=== PATIENT | male | born 1930 ===

== ENCOUNTER 2017-12-15 08:03 | Day surgery (SDC) | payer MEDICARE, OTHER ==
[2017-11-05 18:52] VITALS: BMI 15.7
[2017-12-15] MEDS ORDERED: Lactated Ringer's 500 ML IV ONE (09:30)
[2017-12-15] MEDS ORDERED: Propofol 10 mg/ml Inj (20 ML) ONE (11:04)
[2017-12-15 11:17] VITALS: TEMP 98; O2SAT 100
[2017-12-15 11:39] VITALS: BP 109/68; PULSE 80; RESP 21
== END 2017-12-15 12:03 | disposition home or self-care (01) ==
LOC: H.ENDO 08:03
PROVIDERS: ATTEND Internal Medicine Gastroenterology
DX: K29.50 Unspecified chronic gastritis without bleeding (principal); K44.9 Diaphragmatic hernia without obstruction or gangrene; R10.13 Epigastric pain
CPT/HCPCS: 43239; 88305; J2001; J2704; J7120

== ENCOUNTER 2018-06-04 18:01 | Inpatient (IN) | payer MEDICARE, OTHER ==
[2018-06-04 18:01] VITALS: BMI 15.7
[2018-06-04] MEDS ORDERED: Sodium Chloride 0.9% 1,000 ML IV STA (18:59)
[2018-06-04 19:06] LABS: ALB/GLOB RATIO 0.7 (1.0-2.1); ALBUMIN 2.3 g/dL (3.5-5.0); ALT/SGPT 34 U/L (21-72); AST/SGOT 25 U/L (17-59); BLOOD UREA NITROGEN 21 mg/dl (9-20); CALCIUM 7.6 mg/dL (8.4-10.2); GFR NON-AFRICAN AMERICAN > 60
[2018-06-04 20:01] LABS: ABG ALLEN TEST YES; ARTERIAL BLOOD GAS O2 SAT 96.7 % (95-98); ARTERIAL BLOOD GAS PCO2 32 mm/Hg (35-45); ARTERIAL BLOOD GAS PH 7.54 (7.35-7.45); ARTERIAL BLOOD GAS PO2 100 mm/Hg (80-100); ARTERIAL BLOOD GAS TCO2 28.4 mmol/L (22-28)
--- NOTE | 2018-06-04 20:12 | ED PDOC ---
HPI: General Adult Time Seen by Provider: 06/04/18 18:20 Chief Complaint (Nursing): Weakness/Neurological Deficit Chief Complaint (Provider): Weakness/Neurological Deficit History Per: Patient History/Exam Limitations: no limitations Onset/Duration Of Symptoms: Days (x30) Additional Complaint(s): 87 years old male with history of hypertension and pe dvt (ivc filter) stangulated hernia presents to ER for evaluation of whole body pain and generalized weakness for one month. Patient was seen recently by his PMD. He is drinking liquidsl but not as much as usual. Patient denies any fever, vomiting or diarrhea. is on bedside. PMD: Ayse Valdivia Past Medical History Reviewed: Historical Data, Nursing Documentation, Vital Signs Vital Signs: Last Vital Signs Temp 97.9 F 06/04/18 18:03 Pulse 95 H 06/04/18 18:03 Resp 16 06/04/18 18:03 BP 93/61 L 06/04/18 18:03 Pulse Ox 98 06/04/18 18:03 - Medical History PMH: CAD, Cardia Arrhythmia, HTN, Hypercholesterolemia Denies: Chronic Kidney Disease - Surgical History Surgical History: CABG, Coronary Stent, Hernia Repair - Family History Family History: States: Unknown Family Hx - Social History Current smoker - smoking cessation education provided: No Alcohol: None Drugs: Denies - Immunization History Hx Tetanus Toxoid Vaccination: No Hx Influenza Vaccination: Yes Hx Pneumococcal Vaccination: No - Home Medications Home Medications: Ambulatory Orders Medication Instructions Recorded RX: Simvastatin 20 mg PO HS 09/09/16 Clopidogrel [Plavix] 75 mg PO DAILY 06/04/18 Ergocalciferol (Vitamin D2) 50,000 unit PO FR 06/04/18 [Vitamin D2] Finasteride [Proscar] 5 mg PO DAILY 06/04/18 Furosemide [Lasix] 20 mg PO Q48H 06/04/18 Lubiprostone [Amitiza] 24 mcg PO BID 06/04/18 Metoprolol Succinate XL [Toprol XL] 100 mg PO DAILY 06/04/18 Mv,Min10/Folic Acid/D3/Ala/Lut 1 tab PO DAILY 06/04/18 [Strovite One Caplet] Tamsulosin [Flomax] 0.4 mg PO DAILY 06/04/18 - Allergies Allergies/Adverse Reactions: Allergies Allergy/AdvReac Type Severity Reaction Status Date / Time No Known Allergies Allergy Verified 06/04/18 18:03 Review of Systems ROS Statement: Except As Marked, All Systems Reviewed And Found Negative Constitutional: Negative for: Fever Gastrointestinal: Negative for: Vomiting, Diarrhea Neurological: Positive for: Weakness Physical Exam - Reviewed Nursing Documentation Reviewed: Yes Vital Signs Reviewed: Yes - Physical Exam Appears: Positive for: Non-toxic, No Acute Distress Head Exam: Positive for: ATRAUMATIC, NORMOCEPHALIC Skin: Positive for: Normal Color, Warm, Dry Eye Exam: Positive for: Normal appearance, EOMI, PERRL ENT: Positive for: Normal ENT Inspection Neck: Positive for: Normal, Painless ROM, Supple Cardiovascular/Chest: Positive for: Regular Rate, Rhythm. Negative for: Murmur Respiratory: Positive for: Normal Breath Sounds. Negative for: Respiratory Distress Gastrointestinal/Abdominal: Positive for: Normal Exam, Soft. Negative for: Tenderness Back: Positive for: Normal Inspection. Negative for: L CVA Tenderness, R CVA Tenderness Extremity: Positive for: Normal ROM. Negative for: Pedal Edema, Deformity Neurologic/Psych: Positive for: Alert, Oriented (x3), Other (temporal wasting) - Laboratory Results Result Diagrams: 06/12/18 16:51 06/16/18 11:29 - ECG O2 Sat by Pulse Oximetry: 98 (RA) Pulse Ox Interpretation: Normal Medical Decision Making Medical Decision Making: Time: 1841 Initial Plan: genearlized weakness, rule out infection, uti or pneumonia --ABG Shock Panel --VBG Shock Panel --CMP --CBC --Chest x-ray --NaCl 1,000 ml IV --Blood culture --Urine culture --Urinalysis 22:[address] Chest Abd Pelvis Lower thorax There are large bilateral pleural effusions. Right basilar consolidations are noted consistent with atelectasis. Liver Unremarkable. No gross lesion or ductal dilatation. Gallbladder and bile ducts Unremarkable. Pancreas Unremarkable. No gross lesion or ductal dilatation. Spleen Unremarkable. Adrenals Unremarkable. No mass. Kidneys and ureters No hydronephrosis. No solid mass. There are bilateral cortical cysts present, the largest measures 2.5 cm and is located in the mid pole of the left kidney. IVC filter is in place. Vasculature Unremarkable. No aortic aneurysm. Bowel No obstruction. No gross mural thickening. There is circumferential wall thickening involving all small bowel segments consistent with enteritis. Appendix Normal appendix. Peritoneum Unremarkable. No free fluid. No free air. Lymph nodes Unremarkable. No enlarged lymph nodes. Bladder Unremarkable. Reproductive Unremarkable. Bones No acute fracture. Other Findings Diffuse abdominal and pelvic ascites is present. Impression Large bilateral pleural effusions. Right basilar atelectasis. Bilateral cortical cysts, the largest measures 2.5 cm and is located in the mid pole of the left kidney. IVC filter is in place. Enteritis. Diffuse abdominal and pelvic ascites. 23:53 Patient and family aware of results of the CT. pt will be admitted to Dr. Noel. DX pleural effusions, anemia, ascites, weight loss --------- Scribe Attestation: Documented by Debi Brooke, acting as a scribe for Adán Cummins MD. Provider Scribe Attestation: All medical record entries made by the Scribe were at my direction and personally dictated by me. I have reviewed the chart and agree that the record accurately reflects my personal performance of the history, physical exam, medical decision making, and the department course for this patient. I have also personally directed, reviewed, and agree with the discharge instructions and disposition. Disposition - Clinical Impression Clinical Impression: Ascites, Weight loss, Anemia - Patient ED Disposition Is Patient to be Admitted: Yes - Disposition Disposition Time: 23:40 Condition: FAIR
[2018-06-04 20:19] LABS: BASO % 0.1 % (0.0-2.0); EOS % 0.1 % (0.0-4.0); HEMOGLOBIN 10.9 g/dL (12.0-18.0); LYMPH # 1.4 K/uL (1.0-4.3); MEAN CELL VOLUME 82.5 fl (80.0-94.0); MEAN CORPUSCULAR HGB CONC 31.5 g/dL (33.0-37.0); MEAN PLATELET VOLUME 8.6 fl (7.2-11.7); MONO # 0.5 K/uL (0.0-0.8); MONO % 6.8 % (0.0-10.0); NEUT # 5.4 K/uL (1.8-7.0); NRBC % 0.1 % (0.0-0.0); RBC 4.19 Mil/uL (4.40-5.90); RED CELL DISTRIBUTION WIDTH 18.9 % (11.5-14.5); WHITE BLOOD COUNT 7.2 K/uL (4.8-10.8)
[2018-06-04] MEDS ORDERED: Iohexol 240 (50 ml) PO STA (21:04)
[2018-06-04] MEDS ORDERED: Iohexol 300 100 ML IJ ONE (21:12)
[2018-06-04] MEDS ORDERED: Sodium Chloride 0.9% 50 ML IV ONE (21:12)
[2018-06-04] MEDS: Sodium Chloride 0.9% 1,000 ML IV STA (23:46)
[2018-06-05] MEDS: Sodium Chloride 0.9% 1,000 ML IV STA (02:12)
[2018-06-05 02:29] LABS: URINE BACTERIA RARE (<OCC); URINE BILIRUBIN NEGATIVE (NEGATIVE); URINE BLOOD NEGATIVE (NEGATIVE); URINE CLARITY CLOUDY (Clear); URINE COLOR AMBER (YELLOW); URINE GLUCOSE (UA) NEG (NEGATIVE); URINE HYALINE CAST 0-2 /hpf (0-2); URINE LEUKOCYTE ESTERASE MOD Leu/uL (Negative); URINE PROTEIN NEGATIVE (NEGATIVE)
[2018-06-05] MEDS: Dextrose 5%/0.45% NS 1,000 ML IV SCH ×2 (05:44→20:59)
[2018-06-05] MEDS ORDERED: Pneumococcal 23-Valent Vaccine IM ONE (06:00)
[2018-06-05 06:23] LABS: HEMOGLOBIN 11.1 g/dL (12.0-18.0); MEAN CELL VOLUME 82.2 fl (80.0-94.0); MEAN CORPUSCULAR HEMOGLOBIN 26.6 pg (27.0-31.0); MEAN CORPUSCULAR HGB CONC 32.4 g/dL (33.0-37.0); RBC 4.19 Mil/uL (4.40-5.90); RED CELL DISTRIBUTION WIDTH 18.7 % (11.5-14.5); WHITE BLOOD COUNT 6.6 K/uL (4.8-10.8)
[2018-06-05 06:25] LABS: INR 1.7; PROTHROMBIN TIME 18.8 Seconds (9.8-13.1)
[2018-06-05 06:40] LABS: B-TYPE NATRIURETIC PEPTIDE 1250 pg/ml (0-900)
[2018-06-05 06:44] LABS: ALB/GLOB RATIO 0.7 (1.0-2.1); ALBUMIN 2.2 g/dL (3.5-5.0); ALT/SGPT 29 U/L (21-72); AST/SGOT 26 U/L (17-59); BLOOD UREA NITROGEN 21 mg/dl (9-20); CALCIUM 7.2 mg/dL (8.4-10.2); GFR NON-AFRICAN AMERICAN > 60; HDL CHOLESTEROL 34 MG/DL (30-70); LDL CHOLESTEROL < 30 mg/dL (0-129)
[2018-06-05 06:48] LABS: T4 5.01 ug/dl (5.5-11.0)
--- NOTE | 2018-06-05 08:58 | RAD ---
Date of service: 06/04/2018 HISTORY: body pain COMPARISON: Chest radiographs 09/10/2009. FINDINGS: LUNGS: Medial basilar airspace disease is identified with none on the right. PLEURA: Trace bilateral pleural effusions are question. No pneumothorax bilaterally. CARDIOVASCULAR: Calcific atherosclerotic changes are seen related to the thoracic aorta. Normal cardiac size. No pulmonary vascular congestion. Post CABG pattern reiterated. OSSEOUS STRUCTURES: Sternotomy wires reiterated. VISUALIZED UPPER ABDOMEN: Normal. OTHER FINDINGS: None. IMPRESSION: Minimal bilateral pleural effusions are identified with left basilar airspace disease not excluded. Remaining lung pete clear. Post CABG mediastinal changes reiterated.
[2018-06-05] MEDS ORDERED: Patient's Own Med (Mv,Min10/Folic Acid/D3/Ala/Lut [Strovite One Caplet] 1 TAB) PO SCH (09:00)
[2018-06-05] MEDS: Ergocalciferol 50,000 Intl Units Cap PO SCH (09:24)
[2018-06-05] MEDS: Multivitamin With Minerals Tab PO SCH (09:24)
--- NOTE | 2018-06-05 10:22 | CT ---
Date of service: 06/04/2018 PROCEDURE: CT Chest, Abdomen and Pelvis with intravenous contrast HISTORY: body pain, cachexia COMPARISON: None available. TECHNIQUE: IV dose administered: 75 cc Omnipaque 300 Radiation dose: Total exam DLP = 434.98 mGy-cm. This CT exam was performed using one or more of the following dose reduction techniques: Automated exposure control, adjustment of the mA and/or kV according to patient size, and/or use of iterative reconstruction technique. FINDINGS: CT CHEST WITH CONTRAST: LUNGS: Compressive atelectasis both lower lobes related to pleural effusions. No additional pulmonary nodules or masses. She MEDIASTINUM: Atherosclerotic calcification and mural plaque present. Findings are seen throughout the aorta which is not aneurysmal. LYMPH NODES: Unremarkable. PLEURA: Small bilateral pleural effusions which are approximately symmetrical. BONES: Post anatomy changes apparent. No lytic or destructive lesions identified visualized osseous structures. OTHER FINDINGS: Virtual absence of body fat. CT ABDOMEN AND PELVIS: LIVER: Atrophic liver, possible cirrhosis. Patent portal venous system is satisfactorily visualized without evidence portal vein thrombosis or the stigmata of portal hypertension. Incidental finding(s): Multiple small simple cysts none larger than 1.3 cm. GALLBLADDER AND BILE DUCTS: Unremarkable. PANCREAS: Unremarkable. No gross lesion or ductal dilatation. SPLEEN: Unremarkable. ADRENALS: Unremarkable. No mass. KIDNEYS AND URETERS: Unremarkable. No hydronephrosis. No solid mass. Incidental finding(s): Bilateral renal cysts the largest in the upper pole of the left kidney 2.4 x 3 cm. VASCULATURE: Atherosclerotic calcification and mural plaque present. Findings are seen throughout the aorta which is non aneurysmal. BOWEL: Gastric wall thickening in part due to the poorly distended state. Follow-up however advised. Dilated proximal small bowel. Early/incomplete small bowel obstruction. APPENDIX: Normal appendix. PERITONEUM: Large volume abdominal and pelvic ascites. No free air. LYMPH NODES: Unremarkable. No enlarged lymph nodes. BLADDER: Unremarkable. REPRODUCTIVE: Unremarkable. BONES: No acute fracture. OTHER FINDINGS: Diffuse edema, anasarca. IMPRESSION: 1. Moderate and some approximately symmetrical bilateral pleural effusions and underlying compressive atelectasis. No suspicious pulmonary or pleural findings otherwise identified. 2. Cirrhotic appearing liver without manifestations of portal hypertension. 3. Large volume abdominal pelvic ascites. 4. Gastric wall thickening of uncertain etiology/significance. Follow-up recommended. 5. Disproportionate dilatation of proximal small bowel may reflect early/incomplete small bowel obstruction. Additional benign and/or incidental findings described above. Concordant results (preliminary interpretation) provided by RADHA MILLER. Procedure Completed: 21:44. Preliminary Report: Dictated and Authenticated: 22:51. Final Interpretation: 10:17. June 04, 2018
--- NOTE | 2018-06-05 17:25 | CP.PCM.HP ---
History of Present Illness - History of Present Illness History of Present Illness: CC: Generalized weakness. 87 y/o M, significant PMHx for HTN, PE RLL, RUE DVT, CABG, CAD, Coronary Stent, High Cholesterol, brought to ER [facility] on 05/05/18 to be evaluated for increased generalized weakness associated to whole body ache, constant pain, moderate intensity 5:10 , diarrhea, onset 3 weeks [employer] PILOT, gradually increasing with no improvement. Worsening symptoms: Lack of appetite, weight loos over the past 3 weeks with no change. Aggravated factor: Ambulate. Pt denied: Fever, chills, nausea, vomiting, painful urination, SOB, cough, CP, syncope, headache, sick contact. CXR: B/L Pleural effusion, L basilar airspace disease. Chest/Abd/Pelvis CT: Moderate b/l pleural effusion, underlying compressive atelectasis. Liver cirrhosis w/o manifestation for portal HTN. Large volume abdominal pelvic ascites. Gastric wall thickening,unknown etiology. Disproportionate dilatation of proximal small bowel , may represent early SBO. Present on Admission - Present on Admission Any Indicators Present on Admission: Yes History of DVT/PE: Yes Review of Systems - Constitutional Constitutional: Anorexia, Weakness - EENT Eyes: Blurred Vision (cataract) Ears: Other (negative) Nose/Mouth/Throat: Other (negative) - Cardiovascular Cardiovascular: Rapid Heart Rate - Respiratory Respiratory: Other (negative) - Gastrointestinal Gastrointestinal: Diarrhea - Genitourinary Genitourinary: Other (negative) - Musculoskeletal Musculoskeletal: Arthralgias, Muscle Weakness - Integumentary Integumentary: Other (negative) - Neurological Neurological: Confusion, Weakness - Psychiatric Psychiatric: Other (negative) - Endocrine Endocrine: Change in Body Appearance - Hematologic/Lymphatic Hematologic: Other (negative) Past Patient History - Infectious Disease Hx of Infectious Diseases: None - Past Medical History & Family History Past Medical History?: Yes Pertinent Family History: Unknown - Past Social History Smoking Status: Never Smoked Alcohol: None Drugs: Denies Home Situation {Lives}: With Family - CARDIAC Hx Cardiac Disorders: Yes Hx Cardia Arrhythmia: Yes Hx Hypercholesterolemia: Yes Hx Hypertension: Yes - PULMONARY Hx Respiratory Disorders: No - NEUROLOGICAL Hx Neurological Disorder: No - HEENT Hx HEENT Problems: Yes Hx Cataracts: Yes (BILATERAL) Hx Glaucoma: Yes - RENAL Hx Chronic Kidney Disease: No - ENDOCRINE/METABOLIC Hx Endocrine Disorders: No - HEMATOLOGICAL/ONCOLOGICAL Hx Blood Disorders: Yes Hx AIDS: No Hx Blood Transfusions: Yes Hx Blood Transfusion Reaction: No Hx Human Immunodeficiency Virus (HIV): No - INTEGUMENTARY Hx Dermatological Problems: No - MUSCULOSKELETAL/RHEUMATOLOGICAL Hx Musculoskeletal Disorders: Yes Hx Falls: Yes - GASTROINTESTINAL Hx Gastrointestinal Disorders: Yes Hx Diarrhea: Yes - GENITOURINARY/GYNECOLOGICAL Hx Genitourinary Disorders: Yes Hx Prostate Problems: Yes Other/Comment: prostate sx - PSYCHIATRIC Hx Psychophysiologic Disorder: No Hx Substance Use: No - SURGICAL HISTORY Hx Surgeries: Yes Hx Cataract Extraction: Yes Hx Coronary Artery Bypass Graft: Yes Hx Coronary Stent: Yes Hx Herniorrhaphy: Yes - ANESTHESIA Hx Anesthesia: Yes Hx Anesthesia Reactions: No Hx Malignant Hyperthermia: No Meds Allergies/Adverse Reactions: Allergies Allergy/AdvReac Type Severity Reaction Status Date / Time No Known Allergies Allergy Verified 06/04/18 18:03 Physical Exam - Constitutional Appears: No Acute Distress - Head Exam Head Exam: NORMAL INSPECTION - Eye Exam Additional comments: Cataract b/l - ENT Exam ENT Exam: Normal Exam - Neck Exam Neck exam: Positive for: Normal Inspection - Respiratory Exam Respiratory Exam: NORMAL BREATHING PATTERN - Cardiovascular Exam Cardiovascular Exam: REGULAR RHYTHM - GI/Abdominal Exam GI & Abdominal Exam: Distended (Ascites), Soft Additional comments: ascites - Extremities Exam Additional comments: BLE 3+ pitting edema. - Back Exam Additional comments: Pressure ulcer/ DTI on sacrum. - Neurological Exam Neurological exam: Alert (Ox2, confused, ) Additional comments: Ox2, forgetful, confused, obeys commands, generalized weakness. - Psychiatric Exam Additional comments: Calm - Skin Skin Exam: Warm Results - Vital Signs Recent Vital Signs: Last Vital Signs Temp 97.6 F 06/05/18 17:00 Pulse 92 H 06/05/18 17:00 Resp 18 06/05/18 17:00 BP 117/78 06/05/18 17:00 Pulse Ox 97 06/05/18 17:00 jose Antony - Labs Result Diagrams: 06/05/18 06:00 06/05/18 06:00 Labs: Laboratory Results - last 24 hr 06/04/18 06/04/18 06/04/18 18:24 18:49 19:01 WBC RBC Hgb Hct MCV MCH MCHC RDW Plt Count MPV Neut % (Auto) Lymph % (Auto) [place] % (Auto) Eos % (Auto) Baso % (Auto) Neut # (Auto) Lymph # (Auto) [place] # (Auto) Eos # (Auto) Baso # (Auto) PT INR APTT pCO2 pO2 HCO3 ABG pH ABG Total CO2 ABG O2 Saturation ABG Base Excess Acsper Test ABG Potassium VBG O2 Sat (Calc) 87.3 H A-a O2 Difference Glucose Lactate FiO2 21.0 Sodium 133 Potassium 5.0 Chloride 101 Carbon Dioxide 26 Anion Gap 11 BUN 21 H Creatinine 0.6 L Est GFR ( Amer) > 60 Est GFR (Non-Af Amer) > 60 POC Glucose (mg/dL) 82 Random Glucose 83 Calcium 7.6 L Total Bilirubin 0.7 AST 25 ALT 34 Alkaline Phosphatase 62 NT-Pro-B Natriuret Pep Total Protein 5.7 L Albumin 2.3 L Globulin 3.4 Albumin/Globulin Ratio 0.7 L Triglycerides Cholesterol LDL Cholesterol Direct HDL Cholesterol Carcinoembryonic Ag 25-OH Vitamin D Total Thyroxine (T4) TSH 3rd Generation Arterial Blood Potassium Urine Color Urine Clarity Urine pH Ur Specific [place] Urine Protein Urine Glucose (UA) Urine Ketones Urine Blood Urine Nitrate Urine Bilirubin Urine Urobilinogen Ur Leukocyte Esterase Urine RBC (Auto) Urine Microscopic WBC Urine Bacteria Hyaline Casts 06/04/18 06/04/18 06/04/18 19:30 19:31 19:58 WBC 7.2 RBC 4.19 L Hgb 10.9 L Hct 34.6 L MCV 82.5 MCH 26.0 L MCHC 31.5 L RDW 18.9 H Plt Count 272 MPV 8.6 Neut % (Auto) 74.0 Lymph % (Auto) 19.0 L [place] % (Auto) 6.8 Eos % (Auto) 0.1 Baso % (Auto) 0.1 Neut # (Auto) 5.4 Lymph # (Auto) 1.4 Irion # (Auto) 0.5 Eos # (Auto) 0.0 Baso # (Auto) 0.0 PT INR APTT pCO2 32 L pO2 100 HCO3 29.0 H ABG pH 7.54 H ABG Total CO2 28.4 H ABG O2 Saturation 96.7 ABG Base Excess 5.2 H [place] Test Yes ABG Potassium 3.6 VBG O2 Sat (Calc) 93.4 H A-a O2 Difference 10.0 Glucose 90 Lactate 1.0 FiO2 21.0 21.0 Sodium 129.0 L Potassium Chloride 102.0 Carbon Dioxide Anion Gap BUN Creatinine Est GFR ( Amer) Est GFR (Non-Af Amer) POC Glucose (mg/dL) Random Glucose Calcium Total Bilirubin AST ALT Alkaline Phosphatase NT-Pro-B Natriuret Pep Total Protein Albumin Globulin Albumin/Globulin Ratio Triglycerides Cholesterol LDL Cholesterol Direct HDL Cholesterol Carcinoembryonic Ag 25-OH Vitamin D Total Thyroxine (T4) TSH 3rd Generation Arterial Blood Potassium 3.6 Urine Color Urine Clarity Urine pH Ur Specific [place] Urine Protein Urine Glucose (UA) Urine Ketones Urine Blood Urine Nitrate Urine Bilirubin Urine Urobilinogen Ur Leukocyte Esterase Urine RBC (Auto) Urine Microscopic WBC Urine Bacteria Hyaline Casts 06/05/18 06/05/18 06/05/18 02:15 06:00 06:00 WBC 6.6 RBC 4.19 L Hgb 11.1 L Hct 34.4 L MCV 82.2 MCH 26.6 L MCHC 32.4 L RDW 18.7 H Plt Count 286 MPV Neut % (Auto) Lymph % (Auto) [place] % (Auto) Eos % (Auto) Baso % (Auto) Neut # (Auto) Lymph # (Auto) [place] # (Auto) Eos # (Auto) Baso # (Auto) PT INR APTT pCO2 pO2 HCO3 ABG pH ABG Total CO2 ABG O2 Saturation ABG Base Excess [place] Test ABG Potassium VBG O2 Sat (Calc) A-a O2 Difference Glucose Lactate FiO2 Sodium 136 Potassium 4.9 Chloride 104 Carbon Dioxide 27 Anion Gap 10 BUN 21 H Creatinine 0.6 L Est GFR ( Amer) > 60 Est GFR (Non-Af Amer) > 60 POC Glucose (mg/dL) Random Glucose 60 L Calcium 7.2 L Total Bilirubin 0.7 AST 26 ALT 29 Alkaline Phosphatase 65 NT-Pro-B Natriuret Pep 1250 H Total Protein 5.4 L Albumin 2.2 L Globulin 3.2 Albumin/Globulin Ratio 0.7 L Triglycerides 41 Cholesterol 63 LDL Cholesterol Direct < 30 HDL Cholesterol 34 Carcinoembryonic Ag 2.3 25-OH Vitamin D Total Thyroxine (T4) 5.01 L TSH 3rd Generation 2.04 Arterial Blood Potassium Urine Color Iza Urine Clarity Cloudy Urine pH 6.0 Ur Specific [place] 1.034 H Urine Protein Negative Urine Glucose (UA) Neg Urine Ketones Negative Urine Blood Negative Urine Nitrate Negative Urine Bilirubin Negative Urine Urobilinogen 4.0 Ur Leukocyte Esterase Mod Urine RBC (Auto) 1 Urine Microscopic WBC 109 H Urine Bacteria Rare Hyaline Casts 0-2 06/05/18 06/05/18 06/05/18 06:00 06:00 12:20 WBC RBC Hgb Hct MCV MCH MCHC RDW Plt Count MPV Neut % (Auto) Lymph % (Auto) [place] % (Auto) Eos % (Auto) Baso % (Auto) Neut # (Auto) Lymph # (Auto) [place] # (Auto) Eos # (Auto) Baso # (Auto) PT 18.8 H INR 1.7 APTT 37.0 pCO2 pO2 HCO3 ABG pH ABG Total CO2 ABG O2 Saturation ABG Base Excess [place] Test ABG Potassium VBG O2 Sat (Calc) A-a O2 Difference Glucose Lactate FiO2 Sodium Potassium Chloride Carbon Dioxide Anion Gap BUN Creatinine Est GFR ( Amer) Est GFR (Non-Af Amer) POC Glucose (mg/dL) 139 H Random Glucose Calcium Total Bilirubin AST ALT Alkaline Phosphatase NT-Pro-B Natriuret Pep Total Protein Albumin Globulin Albumin/Globulin Ratio Triglycerides Cholesterol LDL Cholesterol Direct HDL Cholesterol Carcinoembryonic Ag 25-OH Vitamin D Total 27.5 L Thyroxine (T4) TSH 3rd Generation Arterial Blood Potassium Urine Color Urine Clarity Urine pH Ur Specific [place] Urine Protein Urine Glucose (UA) Urine Ketones Urine Blood Urine Nitrate Urine Bilirubin Urine Urobilinogen Ur Leukocyte Esterase Urine RBC (Auto) Urine Microscopic WBC Urine Bacteria Hyaline Casts reviewed J.P. - Imaging and Cardiology Chest x-ray Status: Report reviewed by me (J.P.) CT scan - chest Status: Report reviewed by me (J.P.) CT scan - pelvis Status: Report reviewed by me (J.P.) CT scan - abdomen Status: Report reviewed by me (J.P.) Assessment & Plan (1) Generalized weakness Status: Acute Priority: High (2) Liver cirrhosis, alcoholic Status: Chronic Priority: High (3) Lack of appetite Status: Acute Priority: High (4) Weight loss Status: Acute Priority: High (5) Ascites Status: Acute Priority: High (6) Diarrhea Status: Acute Priority: High (7) Pleural effusion, bilateral Status: Acute Priority: High (8) CAD (coronary artery disease) Status: Chronic Priority: Medium (9) Hx of deep venous thrombosis Status: Chronic Priority: High Comment: RUAriadna (10) Hx pulmonary embolism Status: Chronic Priority: High Comment: RLL (11) HLD (hyperlipidemia) Status: Chronic Priority: Low (12) HTN (hypertension) Status: Chronic Priority: Low (13) Hx of CABG Status: Chronic Priority: High - Assessment and Plan (Free Text) Plan: F/U Echo, Hepatitis panel, Blood C-S, U C-S, Liquid diet, continue , IVF, Proscar, Drisdol and rest of Tx., GI consult, Cardiology consult - Date & Time Date: 06/05/18 Time: 11:40
--- NOTE | 2018-06-05 20:06 | CARD ---
APPROVED REPORT Date of service: 06/05/2018 EXAM: Two-dimensional and M-mode echocardiogram with Doppler and color Doppler. Other Information Quality : ExcellentRhythm : NSR INDICATION LV Function:SystolicDiastolic Surgery/Intervention CABD DIMENSIONS IVSd0.51 (0.7-1.1cm)LVDd3.76 (3.9-5.9cm) LVOT Diameter1.73 (1.8-2.4cm)PWd0.64 (0.7-1.1cm) IVSs0.68 (0.8-1.2cm)LVDs3.30 (2.5-4.0cm) FS (%) 12.2 %PWs0.55 (0.8-1.2cm) M-Mode DIMENSIONS Left Atrium (MM)3.44 (2.5-4.0cm)IVSd0.69 (0.7-1.1cm) Aortic Root2.92 (2.2-3.7cm)LVDd4.59 (4.0-5.6cm) Aortic Cusp Exc.1.63 (1.5-2.0cm)PWd0.86 (0.7-1.1cm) IVSs0.62 cmFS (%) 18 % LVDs3.78 (2.0-3.8cm)PWs1.22 cm Aortic Valve AoV Peak Vdzprwcn96.0cm/sAoV VTI14.4cmAO Peak GR.2mmHg LVOT Peak Wkotqrcp54.1cm/sLVOT VTI11.50cmAO Mean GR.1mmHg ROSE (VMAX)1.78nk9OKO (VTI)1.37cm2 Mitral Valve E/A ratio0.0 TDI E/Lateral E'0.0E/Medial E'0.0 Tricuspid Valve TR Peak [id number] [id number] Peak Gr.16mmHg [id number] LEFT VENTRICLE The left ventricle is normal size. There is normal left ventricular wall thickness. The systolic function is moderately impaired. The estimated ejection fraction is 40-45% Mild anterior wall hypokinesis. The left ventricular diastolic function is inconclusive. No left ventricle thrombus noted on this study. There is no ventricular septal defect visualized. There is no left ventricular aneurysm. There is no mass noted in the left ventricle. RIGHT VENTRICLE The right ventricle is normal size. There is normal right ventricular wall thickness. The right ventricular systolic function is normal. ATRIA The left atrium size is normal. The right atrium size is normal. 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 AORTIC VALVE The aortic valve is normal in structure. No aortic regurgitation is present. There is no aortic valvular stenosis. There is no aortic valvular vegetation. MITRAL VALVE The mitral valve is normal in structure. There is no evidence of mitral valve prolapse. There is no mitral valve stenosis. There is trace to mild mitral valve regurgitation noted. TRICUSPID VALVE The tricuspid valve is normal in structure. There is trace to mild tricuspid valve regurgitation noted. RVSP is calculated at 20 mm Hg. There is no tricuspid valve prolapse or vegetation. There is no tricuspid valve stenosis. PULMONIC VALVE The pulmonary valve is normal in structure. There is no pulmonic valvular regurgitation. There is no pulmonic valvular stenosis. GREAT VESSELS The aortic root is normal in size. The ascending aorta is normal in size. The pulmonary artery is normal. The IVC is normal in size and collapses >50% with inspiration. PERICARDIAL EFFUSION There is large left pericardial effusion. There is no pleural effusion. <Conclusion> The systolic function is moderately impaired. The estimated ejection fraction is 40-45% The left ventricular diastolic function is inconclusive. 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 There is trace to mild mitral valve regurgitation noted. There is trace to mild tricuspid valve regurgitation noted. RVSP is calculated at 20 mm Hg. There is large left pericardial effusion.
[2018-06-05 21:26] LABS: HEPATITIS B SURFACE AG Negative (NEGATIVE)
[2018-06-05 21:32] LABS: HEPATITIS A IGM NEGATIVE (NEGATIVE); HEPATITIS B CORE AB NEGATIVE (NEGATIVE)
[2018-06-05 21:44] LABS: HEPATITIS C ANTIBODY NEGATIVE (NEGATIVE)
[2018-06-06 07:37] LABS: MEAN CORPUSCULAR HEMOGLOBIN 26.3 pg (27.0-31.0); MEAN CORPUSCULAR HGB CONC 31.7 g/dL (33.0-37.0); RBC 3.82 Mil/uL (4.40-5.90); RED CELL DISTRIBUTION WIDTH 18.9 % (11.5-14.5); WHITE BLOOD COUNT 6.7 K/uL (4.8-10.8)
[2018-06-06 08:00] LABS: B-TYPE NATRIURETIC PEPTIDE 801 pg/ml (0-900)
[2018-06-06 08:02] LABS: ALB/GLOB RATIO 0.6 (1.0-2.1); ALBUMIN 2.1 g/dL (3.5-5.0); ALT/SGPT 71 U/L (21-72); AST/SGOT 89 U/L (17-59); BLOOD UREA NITROGEN 20 mg/dl (9-20); CALCIUM 7.6 mg/dL (8.4-10.2); GFR NON-AFRICAN AMERICAN > 60
[2018-06-06] MEDS: Multivitamin With Minerals Tab PO SCH (09:47)
--- NOTE | 2018-06-06 14:57 | CP.PCM.PN ---
Subjective - Date & Time of Evaluation Date of Evaluation: 06/06/18 Time of Evaluation: 15:40 - Subjective Subjective: CC: Weakness constipation Objective - Vital Signs/Intake and Output Vital Signs (last 24 hours): Temp Pulse Resp BP Pulse Ox 97.9 F 100 H 18 115/71 96 06/06/18 04:36 06/06/18 04:36 06/06/18 04:36 06/06/18 04:36 06/06/18 04:36 - Medications Medications: Current Medications Docusate Sodium (Colace) 100 mg PO BID [facility] Last Admin: 06/06/18 09:47 Dose: 100 mg Ergocalciferol (Drisdol 50,000 Intl Units Cap) 1 cap PO FR [facility] Last Admin: 06/05/18 09:24 Dose: 1 cap Finasteride (Proscar) 5 mg PO DAILY [facility] Last Admin: 06/06/18 09:47 Dose: 5 mg Multivitamins/Minerals (Therapeutic-M Tab) 1 tab PO DAILY [facility] Last Admin: 06/06/18 09:47 Dose: 1 tab Tamsulosin HCl (Flomax) 0.4 mg PO DAILY [facility] Last Admin: 06/06/18 09:47 Dose: 0.4 mg - Labs Labs: 06/06/18 07:20 06/06/18 07:20 PT 18.8 Seconds (9.8-13.1) H 06/05/18 06:00 INR 1.7 06/05/18 06:00 APTT 37.0 Seconds (25.6-37.1) 06/05/18 06:00 - Constitutional Appears: Cachectic, Chronically Ill - Head Exam Head Exam: NORMAL INSPECTION - Eye Exam Eye Exam: PERRL - ENT Exam ENT Exam: Normal Exam - Neck Exam Neck Exam: Normal Inspection - Respiratory Exam Respiratory Exam: Decreased Breath Sounds (at bases) - Cardiovascular Exam Cardiovascular Exam: REGULAR RHYTHM - GI/Abdominal Exam GI & Abdominal Exam: Distended Additional comments: no tenderness - Extremities Exam Extremities Exam: Normal Inspection - Back Exam Back Exam: NORMAL INSPECTION - Neurological Exam Neurological Exam: Alert, Oriented x3 Additional comments: generalized weakness, no focal motor/sensory deficit - Psychiatric Exam Psychiatric exam: Anxious - Skin Skin Exam: Warm Assessment and Plan (1) Generalized weakness Status: Acute (2) Liver cirrhosis, alcoholic Status: Chronic (3) Lack of appetite Status: Acute (4) Weight loss Status: Acute (5) Ascites Status: Acute (6) Diarrhea Status: Acute (7) Pleural effusion, bilateral Status: Acute (8) CAD (coronary artery disease) Status: Chronic (9) Hx of deep venous thrombosis Status: Chronic (10) Hx pulmonary embolism Status: Chronic (11) HLD (hyperlipidemia) Status: Chronic (12) HTN (hypertension) Status: Chronic (13) Hx of CABG Status: Chronic - Assessment and Plan (Free Text) Plan: continue current Tx, f/u ID
--- NOTE | 2018-06-06 23:24 | CP.PCM.CON ---
History of Present Illness - History of Present Illness History of Present Illness: 87 yo male admitted with body pain and weakness. Referred to GI service due to the presence of ascites. He is currently c/o constipation. Review of Systems - Constitutional Constitutional: absent: Chills - EENT Eyes: Dry Eye. absent: Blurred Vision - Cardiovascular Cardiovascular: absent: Chest Pain - Respiratory Respiratory: absent: Dyspnea - Gastrointestinal Gastrointestinal: As Per HPI - Genitourinary Genitourinary: absent: Change in Urinary Stream Past Patient History - Infectious Disease Hx of Infectious Diseases: None - Past Medical History & Family History Past Medical History?: Yes - Past Social History Smoking Status: Never Smoked Alcohol: None Drugs: Denies Home Situation {Lives}: With Family - CARDIAC Hx Cardiac Disorders: Yes Hx Cardia Arrhythmia: Yes Hx Hypercholesterolemia: Yes Hx Hypertension: Yes - PULMONARY Hx Respiratory Disorders: No - NEUROLOGICAL Hx Neurological Disorder: No - HEENT Hx HEENT Problems: Yes Hx Cataracts: Yes (BILATERAL) Hx Glaucoma: Yes - RENAL Hx Chronic Kidney Disease: No - ENDOCRINE/METABOLIC Hx Endocrine Disorders: No - HEMATOLOGICAL/ONCOLOGICAL Hx Blood Disorders: Yes Hx AIDS: No Hx Blood Transfusions: Yes Hx Blood Transfusion Reaction: No Hx Human Immunodeficiency Virus (HIV): No - INTEGUMENTARY Hx Dermatological Problems: No - MUSCULOSKELETAL/RHEUMATOLOGICAL Hx Musculoskeletal Disorders: Yes Hx Falls: Yes - GASTROINTESTINAL Hx Gastrointestinal Disorders: Yes Hx Diarrhea: Yes - GENITOURINARY/GYNECOLOGICAL Hx Genitourinary Disorders: Yes Hx Prostate Problems: Yes Other/Comment: prostate sx - PSYCHIATRIC Hx Psychophysiologic Disorder: No Hx Substance Use: No - SURGICAL HISTORY Hx Surgeries: Yes Hx Cataract Extraction: Yes Hx Coronary Artery Bypass Graft: Yes Hx Coronary Stent: Yes Hx Herniorrhaphy: Yes - ANESTHESIA Hx Anesthesia: Yes Hx Anesthesia Reactions: No Hx Malignant Hyperthermia: No Meds Allergies/Adverse Reactions: Allergies Allergy/AdvReac Type Severity Reaction Status Date / Time No Known Allergies Allergy Verified 06/04/18 18:03 - Medications Medications: Current Medications Docusate Sodium (Colace) 100 mg PO BID [facility] Last Admin: 06/06/18 16:33 Dose: 100 mg Ergocalciferol (Drisdol 50,000 Intl Units Cap) 1 cap PO FR [facility] Last Admin: 06/05/18 09:24 Dose: 1 cap Finasteride (Proscar) 5 mg PO DAILY [facility] Last Admin: 06/06/18 09:47 Dose: 5 mg Multivitamins/Minerals (Therapeutic-M Tab) 1 tab PO DAILY [facility] Last Admin: 06/06/18 09:47 Dose: 1 tab Tamsulosin HCl (Flomax) 0.4 mg PO DAILY [facility] Last Admin: 06/06/18 09:47 Dose: 0.4 mg Physical Exam - Head Exam Head Exam: ATRAUMATIC - Eye Exam Eye Exam: Normal appearance Pupil Exam: PERRL - ENT Exam ENT Exam: Normal Exam - Neck Exam Neck exam: Positive for: Normal Inspection - Respiratory Exam Respiratory Exam: Clear to Auscultation Bilateral - Cardiovascular Exam Cardiovascular Exam: REGULAR RHYTHM - GI/Abdominal Exam GI & Abdominal Exam: Normal Bowel Sounds, Soft. absent: Tenderness Results - Vital Signs Recent Vital Signs: Last Vital Signs Temp 98.1 F 06/06/18 20:23 Pulse 111 H 06/06/18 20:23 Resp 18 06/06/18 20:23 BP 119/71 06/06/18 20:23 Pulse Ox 96 06/06/18 20:23 - Labs Result Diagrams: 06/06/18 07:20 06/06/18 07:20 Labs: Laboratory Results - last 24 hr 06/06/18 06/06/18 07:20 07:20 WBC 6.7 RBC 3.82 L Hgb 10.0 L Hct 31.7 L MCV 83.0 MCH 26.3 L MCHC 31.7 L RDW 18.9 H Plt Count 282 Sodium 135 Potassium 4.8 Chloride 101 Carbon Dioxide 26 Anion Gap 13 BUN 20 Creatinine 0.5 L Est GFR ( Amer) > 60 Est GFR (Non-Af Amer) > 60 Random Glucose 125 H Calcium 7.6 L Magnesium 2.1 Total Bilirubin 0.5 AST 89 H D ALT 71 Alkaline Phosphatase 156 H D NT-Pro-B Natriuret Pep 801 Total Protein 5.3 L Albumin 2.1 L Globulin 3.2 Albumin/Globulin Ratio 0.6 L Assessment & Plan (1) Ascites Assessment and Plan: 87 y male with weight loss and low albumin with ascites. CT suggests possible enteritis . Will start on IV albumin. Upper endoscpy with small bowel biopsies on Friday. Status: Acute Priority: High
[2018-06-07 06:57] LABS: BASO % 0.1 % (0.0-2.0); HEMOGLOBIN 10.5 g/dL (12.0-18.0); LYMPH # 0.9 K/uL (1.0-4.3); LYMPH % 14.3 % (20.0-40.0); MEAN CELL VOLUME 83.3 fl (80.0-94.0); MEAN CORPUSCULAR HEMOGLOBIN 26.7 pg (27.0-31.0); MEAN PLATELET VOLUME 8.7 fl (7.2-11.7); MONO # 0.4 K/uL (0.0-0.8); MONO % 6.8 % (0.0-10.0); NEUT # 4.8 K/uL (1.8-7.0); NEUT % 78.8 % (50.0-75.0); RBC 3.94 Mil/uL (4.40-5.90); RED CELL DISTRIBUTION WIDTH 18.7 % (11.5-14.5); WHITE BLOOD COUNT 6.1 K/uL (4.8-10.8)
[2018-06-07 07:21] LABS: ALB/GLOB RATIO 0.7 (1.0-2.1); ALT/SGPT 57 U/L (21-72); AST/SGOT 38 U/L (17-59); BLOOD UREA NITROGEN 18 mg/dl (9-20); CALCIUM 7.3 mg/dL (8.4-10.2); GFR NON-AFRICAN AMERICAN > 60
[2018-06-07] MEDS: Albumin Human 25% (12.5 gm/50 ml) IV SCH (10:01)
[2018-06-07] MEDS: Multivitamin With Minerals Tab PO SCH (10:02)
[2018-06-07] MEDS ORDERED: Alum-Mag Hydrox-Simethicone Susp (30 mL) PO PRN (14:10)
--- NOTE | 2018-06-07 14:12 | CP.PCM.PN ---
Subjective - Date & Time of Evaluation Date of Evaluation: 06/07/18 Time of Evaluation: 12:40 - Subjective Subjective: CC: Weakness complains of heartburn, had BM Objective - Vital Signs/Intake and Output Vital Signs (last 24 hours): Temp Pulse Resp BP Pulse Ox 97.5 F L 96 H 20 121/82 96 06/07/18 09:09 06/07/18 09:09 06/07/18 09:09 06/07/18 09:09 06/07/18 09:09 - Medications Medications: Current Medications Albumin Human (Albumin Human 25% (12.5 Gm/50 Ml)) 12.5 gm IV TID [facility] Stop: 06/10/18 07:17 Last Admin: 06/07/18 10:01 Dose: 12.5 gm Docusate Sodium (Colace) 100 mg PO BID [facility] Last Admin: 06/07/18 10:01 Dose: 100 mg Ergocalciferol (Drisdol 50,000 Intl Units Cap) 1 cap PO FR [facility] Last Admin: 06/05/18 09:24 Dose: 1 cap Finasteride (Proscar) 5 mg PO DAILY [facility] Last Admin: 06/07/18 10:01 Dose: 5 mg Multivitamins/Minerals (Therapeutic-M Tab) 1 tab PO DAILY [facility] Last Admin: 06/07/18 10:02 Dose: 1 tab Tamsulosin HCl (Flomax) 0.4 mg PO DAILY [facility] Last Admin: 06/07/18 10:01 Dose: 0.4 mg - Labs Labs: 06/07/18 06:00 06/07/18 06:00 PT 18.8 Seconds (9.8-13.1) H 06/05/18 06:00 INR 1.7 06/05/18 06:00 APTT 37.0 Seconds (25.6-37.1) 06/05/18 06:00 - Constitutional Appears: Cachectic, Chronically Ill - Head Exam Head Exam: NORMAL INSPECTION - Eye Exam Eye Exam: PERRL - ENT Exam ENT Exam: Normal Exam - Neck Exam Neck Exam: Normal Inspection - Respiratory Exam Respiratory Exam: Decreased Breath Sounds (at bases) - Cardiovascular Exam Cardiovascular Exam: REGULAR RHYTHM - GI/Abdominal Exam GI & Abdominal Exam: Distended Additional comments: no tendreness - Extremities Exam Extremities Exam: Normal Inspection - Back Exam Back Exam: NORMAL INSPECTION - Neurological Exam Neurological Exam: Alert, Oriented x3 Additional comments: generalized weakness, no focal motor/sensory deficit - Psychiatric Exam Psychiatric exam: Anxious - Skin Skin Exam: Warm Assessment and Plan (1) Generalized weakness Status: Acute (2) Liver cirrhosis, alcoholic Status: Chronic (3) Lack of appetite Status: Acute (4) Weight loss Status: Acute (5) Ascites Status: Acute (6) Diarrhea Status: Acute (7) Pleural effusion, bilateral Status: Acute (8) CAD (coronary artery disease) Status: Chronic (9) Hx of deep venous thrombosis Status: Chronic (10) Hx pulmonary embolism Status: Chronic (11) HLD (hyperlipidemia) Status: Chronic (12) HTN (hypertension) Status: Chronic (13) Hx of CABG Status: Chronic - Assessment and Plan (Free Text) Plan: Albumin, IVF, vit D , Maalox, Protonix, and rest of treatment, GI consult charly reciated
[2018-06-07] MEDS: Pantoprazole 40 mg EC Tab PO SCH (15:03)
--- NOTE | 2018-06-07 17:52 | CP.PCM.CON ---
History of Present Illness - History of Present Illness History of Present Illness: Asked to see pt by dr Noel for b/l effusions and increased bnp. 87 y/o M, admitted for increased generalized weakness associated to whole body ache, constant pain, moderate intensity 5:10 , diarrhea, onset 3 weeks, gradually increasing with no improvement. Worsening symptoms: Lack of appetite, weight loss over the past 3 weeks. Aggravated factor: Ambulate. Pt denied: Fever, chills, nausea, vomiting, painful urination, SOB, cough, CP, syncope, headache, sick contact. PMHx for HTN, PE RLL, RUE DVT, CABG, CAD, Coronary Stent, High Cholesterol, CXR: B/L Pleural effusion, L basilar airspace disease. Chest/Abd/Pelvis CT: Moderate b/l pleural effusion, underlying compressive atelectasis. Liver cirrhosis w/o manifestation for portal HTN. Large volume abdominal pelvic ascites. Gastric wall thickening,unknown etiology. Disproportionate dilatation of proximal small bowel , may represent early SBO. Review of Systems - Constitutional Constitutional: As Per HPI, Anorexia, Weight Loss, Weakness. absent: Chills, Daytime Sleepiness, Excessive Sweating, Fatigue, Fever, Frequent Falls, Headache, Increased Appetite, Lethargy, Malaise, Night Sweats, Snoring, Sleep Apnea, Weight Gain, Other - EENT Eyes: As Per HPI. absent: Blind Spots, Blurred Vision, Change in Vision, Decreased Night Vision, Diplopia, Discharge, Dry Eye, Exophthalmos, Floaters, Irritation, Itchy Eyes, Loss of Peripheral Vision, Pain, Photophobia, Requires Corrective Lenses, Sees Flashes, Spots in Vision, Tunnel Vision, Other Visual Disturbances, Loss of Vision, Other Ears: As Per HPI. absent: Decreased Hearing, Ear Discharge, Ear Pain, Tinnitus, Abnormal Hearing, Disequilibrium, Dizziness, Other Nose/Mouth/Throat: As Per HPI. absent: Epistaxis, Nasal Congestion, Nasal Discharge, Nasal Obstruction, Nasal Trauma, Nose Pain, Post Nasal Drip, Sinus Pain, Sinus Pressure, Bleeding Gums, Change in Voice, Dental Pain, Dry Mouth, Dysphagia, Halitosis, Hoarsness, Lip Swelling, Mouth Lesions, Mouth Pain, Odynophagia, Sore Throat, Throat Swelling, Tongue Swelling, Facial Pain, Neck Pain, Neck Mass, Other - Cardiovascular Cardiovascular: As Per HPI, Irregular Heart Rhythm. absent: Acrocyanosis, Chest Pain, Chest Pain at Rest, Chest Pain with Activity, Claudication, Diaphoresis, Dyspnea on Exertion, Edema, Pain Radiating to Arm/Neck/Jaw, Leg Edema, Leg Ulcers, Lightheadedness, Orthopnea, Palpitations, Paroxysmal Nocturnal Dyspnea, Pedal Edema, Radiating Pain, Rapid Heart Rate, Slow Heart Rate, Syncope, Other - Respiratory Respiratory: As Per HPI, Dyspnea. absent: Cough, Hemoptysis, Dyspnea on Exert ion, Wheezing, Snoring, Stridor, Pain on Inspiration, Chest Congestion, Excessive Mucous Production, Change in Mucous Color, Pain with Coughing, Other - Gastrointestinal Gastrointestinal: As Per HPI. absent: Abdominal Pain, Belching, Bloating, Change in Bowel Habits, Change in Stool Character, Coffee Ground Emesis, Constipation, Cramping, Diarrhea, Dyspepsia, Dysphagia, Early Satiety, Excessive Flatus, Fecal Incontinence, Heartburn, Hematemesis, Hematochezia, Loose Stools, Melena, Nausea, Odynophagia, Temesmus, Vomiting, Other - Genitourinary Genitourinary: As Per HPI. absent: Change in Urinary Stream, Difficulty Urinating, Dysuria, Flank Pain, Hematuria, Pyuria, Nocturia, Urinary Incontinence, Urinary Frequency, Urinary Hesitance, Urinary Urgency, Voiding Freq/Small Amts, Freq UTI, Hx Renal/Bladder Calculi, Hx /Renal Surgery, Bladder Distension, Other - Reproductive: Male Reproductive:Male: As Per HPI - Musculoskeletal Musculoskeletal: As Per HPI. absent: Abnormal Gait, Arthralgias, Atrophy, Back Pain, Deformity, Joint Swelling, Limited Range of Motion, Loss of Height, Muscle Cramps, Muscle Weakness, Myalgias, Neck Pain, Numbness, Radiating Pain into Limb, Stiffness, Tingling, Other - Integumentary Integumentary: As Per HPI. absent: Acne, Alopecia, Bleeding Lesions, Change in Hair, Change in Nails, Change in Pigmentation, Changing Lesions, Dry Skin, Erythema, Furuncle, Hirsutism, Lesions, New Lesions, Non-Healing Lesions, Photosensitivity, Pruritus, Rash, Skin Pain, Skin Ulcer, Sores, Striae, Swelling, Unusual Bruising, Wounds, Jaundice, Other - Neurological Neurological: As Per HPI. absent: Abnormal Gait, Abnormal Hearing, Abnormal Movements, Abnormal Speech, Behavioral Changes, Burning Sensations, Confusion, Convulsions, Disequilibrium, Dizziness, Numbness, Focal Weakness, Frequent Falls, Headaches, Lack of Coordination, Loss of Vision, Memory Loss, Paresthesias, Radicular Pain, Restless Legs, Sensory Deficit, Syncope, Tingling, Tremor, Vertigo, Weakness, Other Visual Disturbances, Other - Psychiatric Psychiatric: As Per HPI. absent: Abnormal Sleep Pattern, Anhedonia, Anxiety, Au ditory Hallucinations, Behavioral Changes, Change in Appetite, Change in Libido, Confusion, Depression, Difficulty Concentrating, Hallucinations, Homicidal Ideation, Hopelessness, Irritability, Memory Loss, Mood Swings, Panic Attacks, Paranoia, Suicidal Ideation, Visual Hallucinations, Tactile Hallucinations, Other - Endocrine Endocrine: As Per HPI, Fatigue. absent: Change in Body Appearance, Change in Libido, Cold Intolorance, Deepening of Voice, Excessive Sweating, Flushing, Heat Intolorance, Increase in Ring/Shoe/Hat Size, Palpitations, Polydipsia, Po lyphagia, Polyuria, Other - Hematologic/Lymphatic Hematologic: As Per HPI. absent: Easy Bleeding, Easy Bruising, Lymphadenopathy, Other Past Patient History - Infectious Disease Hx of Infectious Diseases: None - Past Medical History & Family History Past Medical History?: Yes - Past Social History Smoking Status: Never Smoked Alcohol: None Drugs: Denies Home Situation {Lives}: With Family Domestic Violence: Negative - CARDIAC Hx Cardiac Disorders: Yes Hx Cardia Arrhythmia: Yes Hx Hypercholesterolemia: Yes Hx Hypertension: Yes - PULMONARY Hx Respiratory Disorders: No - NEUROLOGICAL Hx Neurological Disorder: No - HEENT Hx HEENT Problems: Yes Hx Cataracts: Yes (BILATERAL) Hx Glaucoma: Yes - RENAL Hx Chronic Kidney Disease: No - ENDOCRINE/METABOLIC Hx Endocrine Disorders: No - HEMATOLOGICAL/ONCOLOGICAL Hx Blood Disorders: Yes Hx AIDS: No Hx Blood Transfusions: Yes Hx Blood Transfusion Reaction: No Hx Human Immunodeficiency Virus (HIV): No - INTEGUMENTARY Hx Dermatological Problems: No - MUSCULOSKELETAL/RHEUMATOLOGICAL Hx Musculoskeletal Disorders: Yes Hx Falls: Yes - GASTROINTESTINAL Hx Gastrointestinal Disorders: Yes Hx Diarrhea: Yes - GENITOURINARY/GYNECOLOGICAL Hx Genitourinary Disorders: Yes Hx Prostate Problems: Yes Other/Comment: prostate sx - PSYCHIATRIC Hx Psychophysiologic Disorder: No Hx Substance Use: No - SURGICAL HISTORY Hx Surgeries: Yes Hx Cataract Extraction: Yes Hx Coronary Artery Bypass Graft: Yes Hx Coronary Stent: Yes Hx Herniorrhaphy: Yes - ANESTHESIA Hx Anesthesia: Yes Hx Anesthesia Reactions: No Hx Malignant Hyperthermia: No Meds Allergies/Adverse Reactions: Allergies Allergy/AdvReac Type Severity Reaction Status Date / Time No Known Allergies Allergy Verified 06/04/18 18:03 - Medications Medications: Current Medications Al Hydrox/Mg Hydrox/Simethicone (Maalox Plus 30 Ml) 30 ml PO Q4 PRN PRN Reason: Indigestion / Heartburn Last Admin: 06/07/18 15:02 Dose: 30 ml Albumin Human (Albumin Human 25% (12.5 Gm/50 Ml)) 12.5 gm IV TID [facility] Stop: 06/10/18 07:17 Last Admin: 06/07/18 10:01 Dose: 12.5 gm Docusate Sodium (Colace) 100 mg PO BID [facility] Last Admin: 06/07/18 17:36 Dose: 100 mg Ergocalciferol (Drisdol 50,000 Intl Units Cap) 1 cap PO FR [facility] Last Admin: 06/05/18 09:24 Dose: 1 cap Finasteride (Proscar) 5 mg PO DAILY [facility] Last Admin: 06/07/18 10:01 Dose: 5 mg Multivitamins/Minerals (Therapeutic-M Tab) 1 tab PO DAILY [facility] Last Admin: 06/07/18 10:02 Dose: 1 tab Pantoprazole Sodium (Protonix Ec Tab) 40 mg PO DAILY [facility] Last Admin: 06/07/18 15:03 Dose: 40 mg Tamsulosin HCl (Flomax) 0.4 mg PO DAILY [facility] Last Admin: 06/07/18 10:01 Dose: 0.4 mg Physical Exam - Constitutional Appears: Non-toxic - Head Exam Head Exam: ATRAUMATIC, NORMAL INSPECTION, NORMOCEPHALIC - Eye Exam Eye Exam: EOMI, Normal appearance, PERRL. absent: Conjunctival injection, Nystagmus, Periorbital swelling, Periorbital tenderness, Scleral icterus Pupil Exam: NORMAL ACCOMODATION, PERRL. absent: Fixed, Irregular, Miosis, Mydriatic, Unequal - ENT Exam ENT Exam: Mucous Membranes Moist, Normal Exam. absent: Mucous Membranes Dry, Normal External Ear Exam, Normal Oropharynx, TM's Normal Bilaterally - Neck Exam Neck exam: Positive for: Normal Inspection. Negative for: Full Rom, Lym phadenopathy, Meningismus, Tenderness, Thyromegaly - Respiratory Exam Respiratory Exam: Decreased Breath Sounds, NORMAL BREATHING PATTERN. absent: Accessory Muscle Use, Chest Wall Tenderness, Clear to Auscultation Bilateral, Prolonged Expiratory Phase, Rales, Rhonchi, Wheezes, Respiratory Distress, Stridor - Cardiovascular Exam Cardiovascular Exam: REGULAR RHYTHM, +S1, +S2, Systolic Murmur. absent: Bradycardia, Tachycardia, Clicks, Diastolic murmur, Gallop, Irregular Rhythm, JVD, RRR, Rubs, +S4 - GI/Abdominal Exam GI & Abdominal Exam: Distended, Normal Bowel Sounds, Soft. absent: Bruit, Diminished Bowel Sounds, Firm, Guarding, Hernia, Hyperactive Bowel Sounds, Hypoactive Bowel Sounds, Mass, Organomegaly, Pulsatile Mass, Rebound, Rigid, Tenderness - Rectal Exam Rectal Exam: Deferred - Extremities Exam Extremities exam: Positive for: normal inspection, pedal pulses present. Negative for: calf tenderness, full ROM, joint swelling, normal capillary refill, pedal edema, tenderness - Back Exam Back exam: NORMAL INSPECTION. absent: CVA tenderness (L), CVA tenderness (R), FULL ROM, muscle spasm, paraspinal tenderness, rash noted, tenderness, vertebral tenderness - Neurological Exam Neurological exam: Alert, CN II-XII Intact, Normal Gait, Oriented x3, Reflexes Normal - Psychiatric Exam Psychiatric exam: Normal Affect, Normal Mood - Skin Skin Exam: Dry, Intact, Normal Color, Warm Results - Vital Signs Recent Vital Signs: Last Vital Signs Temp 97.4 F L 06/07/18 16:01 Pulse 106 H 06/07/18 16:01 Resp 18 06/07/18 16:01 BP 117/82 06/07/18 16:01 Pulse Ox 94 L 06/07/18 16:01 - Labs Result Diagrams: 06/07/18 06:00 06/07/18 06:00 Labs: Laboratory Results - last 24 hr 06/07/18 06/07/18 06/07/18 06:00 06:00 06:00 WBC 6.1 RBC 3.94 L Hgb 10.5 L Hct 32.8 L MCV 83.3 MCH 26.7 L MCHC 32.0 L RDW 18.7 H Plt Count 274 MPV 8.7 Neut % (Auto) 78.8 H Lymph % (Auto) 14.3 L [place] % (Auto) 6.8 Eos % (Auto) 0.0 Baso % (Auto) 0.1 Neut # (Auto) 4.8 Lymph # (Auto) 0.9 L [place] # (Auto) 0.4 Eos # (Auto) 0.0 Baso # (Auto) 0.0 Sodium 130 L Potassium 4.2 Chloride 103 Carbon Dioxide 21 L Anion Gap 10 BUN 18 Creatinine 0.4 L Est GFR ( Amer) > 60 Est GFR (Non-Af Amer) > 60 Random Glucose 74 L Calcium 7.3 L Total Bilirubin 0.5 AST 38 ALT 57 Alkaline Phosphatase 118 Ammonia 29 Total Protein 5.2 L Albumin 2.0 L Globulin 3.1 Albumin/Globulin Ratio 0.7 L Assessment & Plan (1) Hypotension Status: Resolved (2) Tachycardia Status: Acute (3) SVT (supraventricular tachycardia) Status: Acute (4) Impaired cardiac function in adult Status: Acute (5) Intravascular volume depletion Status: Acute (6) Pleural effusion, bilateral Status: Acute Priority: High (7) CAD (coronary artery disease) Status: Chronic Priority: Medium (8) HLD (hyperlipidemia) Status: Chronic Priority: Low (9) HTN (hypertension) Status: Chronic Priority: Low - Assessment and Plan (Free Text) Plan: PERSONALLY REVIEWED ECHO IMAGES. EF AROUND 50 PERCENT (MILDLY DECREASED), POST OP SEPTAL MOTION AND AFIB CONTRIBUTING TO DECREASE IN MEASURED EF. ALL GUERRERO THICKEN AND CONTRACT NORMALLY. NOTE: THERE IS NO PERICARDIAL EFFUSION OR EVIDENCE OF TAMPONADE. THERE IS A LARGE PLEURAL EFFUSION. ADDITIONALLY, TR IS TRACE AND ECCENTRIC MAKING MEASUREMENT OF PAP INACCURATE. IAS BOWS TOWARD LEFT WITH SYSTOLE INDICATING HIGHER RAP THAN LAP. NO EKG SCANNED. HOWEVER PTS RHYTHM APPEARS TACHY AND IRREGULAR ON ECHO IMAGES AND EKG TRACING. PT LIKELY HYPOTENSIVE DUE TO VOLUME DECREASE FROM DIURETICS. HOLD DIURETICS AND GIVE FLUID. ELEVATED BNP DUE TO ELEVATED RAP. EFFUSIONS MAY BE DUE TO LOW PROTEIN AND ALBUMIN, WELL ANEMIA ALL LEADING TO DECREASED ONCOTIC PRESSURE. ASCITES LIKELY DUE TO LIVER FAILURE. WOULD CONT CARDIAC MEDS. CHECK TFT. CONSIDER GI EVAL. CONSIDER STOOL GUAIAC. CONT TELE 55 MIN TOTAL CARE TIME.
[2018-06-07] MEDS: Lactated Ringer's 1,000 ML IV SCH (23:22)
[2018-06-08 05:46] LABS: HEMOGLOBIN 9.6 g/dL (12.0-18.0); MEAN CELL VOLUME 82.6 fl (80.0-94.0); MEAN CORPUSCULAR HEMOGLOBIN 26.8 pg (27.0-31.0); MEAN CORPUSCULAR HGB CONC 32.4 g/dL (33.0-37.0); RBC 3.57 Mil/uL (4.40-5.90); RED CELL DISTRIBUTION WIDTH 18.5 % (11.5-14.5); WHITE BLOOD COUNT 8.7 K/uL (4.8-10.8)
[2018-06-08 05:55] LABS: BLOOD UREA NITROGEN 19 mg/dl (9-20); CALCIUM 7.2 mg/dL (8.4-10.2); GFR NON-AFRICAN AMERICAN > 60
[2018-06-08] MEDS: Pantoprazole 40 mg EC Tab PO SCH (09:38)
[2018-06-08] MEDS: Multivitamin With Minerals Tab PO SCH (09:38)
[2018-06-08] MEDS: Albumin Human 25% (12.5 gm/50 ml) IV SCH (09:39)
--- NOTE | 2018-06-08 16:40 | CP.PCM.PN ---
Subjective - Date & Time of Evaluation Date of Evaluation: 06/08/18 Time of Evaluation: 10:40 - Subjective Subjective: F/U generalized weakness. Awake, smiling, no A/D, no abdominal pain. Objective - Vital Signs/Intake and Output Vital Signs (last 24 hours): Temp Pulse Resp BP Pulse Ox 97.2 F L 90 20 118/71 94 L 06/08/18 16:25 06/08/18 16:25 06/08/18 16:25 06/08/18 16:25 06/08/18 16:25 - Medications Medications: Current Medications Al Hydrox/Mg Hydrox/Simethicone (Maalox Plus 30 Ml) 30 ml PO Q4 PRN PRN Reason: Indigestion / Heartburn Last Admin: 06/07/18 15:02 Dose: 30 ml Docusate Sodium (Colace) 100 mg PO BID [facility] Last Admin: 06/08/18 09:38 Dose: Not Given Ergocalciferol (Drisdol 50,000 Intl Units Cap) 1 cap PO FR [facility] Last Admin: 06/05/18 09:24 Dose: 1 cap Finasteride (Proscar) 5 mg PO DAILY [facility] Last Admin: 06/08/18 09:38 Dose: Not Given Lactated Ringer's (Lactated Ringer's) 1,000 mls @ 60 mls/hr IV .[id number] [facility] Last Admin: 06/07/18 23:22 Dose: 60 mls/hr Multivitamins/Minerals (Therapeutic-M Tab) 1 tab PO DAILY [facility] Last Admin: 06/08/18 09:38 Dose: Not Given Pantoprazole Sodium (Protonix Ec Tab) 40 mg PO DAILY [facility] Last Admin: 06/08/18 09:38 Dose: Not Given Tamsulosin HCl (Flomax) 0.4 mg PO DAILY [facility] Last Admin: 06/08/18 09:38 Dose: Not Given - Labs Labs: 06/08/18 04:30 06/08/18 04:30 PT 18.8 Seconds (9.8-13.1) H 06/05/18 06:00 INR 1.7 06/05/18 06:00 APTT 37.0 Seconds (25.6-37.1) 06/05/18 06:00 - Constitutional Appears: No Acute Distress - Head Exam Head Exam: NORMAL INSPECTION - Eye Exam Eye Exam: PERRL - ENT Exam ENT Exam: Normal Exam - Neck Exam Neck Exam: Normal Inspection - Respiratory Exam Respiratory Exam: Decreased Breath Sounds (at bases) - Cardiovascular Exam Cardiovascular Exam: REGULAR RHYTHM - GI/Abdominal Exam GI & Abdominal Exam: Distended. absent: Tenderness - Extremities Exam Extremities Exam: Normal Inspection - Back Exam Back Exam: NORMAL INSPECTION - Neurological Exam Neurological Exam: Alert, Oriented x3 Additional comments: generalized weakness, no focal motor/sensory deficit - Psychiatric Exam Psychiatric exam: Anxious - Skin Skin Exam: Warm Assessment and Plan (1) Generalized weakness Status: Acute (2) Liver cirrhosis, alcoholic Status: Chronic (3) Lack of appetite Status: Acute (4) Weight loss Status: Acute (5) Ascites Status: Acute (6) Diarrhea Status: Acute (7) Pleural effusion, bilateral Status: Acute (8) CAD (coronary artery disease) Status: Chronic (9) Hx of deep venous thrombosis Status: Chronic (10) Hx pulmonary embolism Status: Chronic (11) HLD (hyperlipidemia) Status: Chronic (12) HTN (hypertension) Status: Chronic (13) Hx of CABG Status: Chronic (14) E. coli UTI Status: Acute - Assessment and Plan (Free Text) Plan: To have EGD today.
[2018-06-08 16:58] LABS: CERULOPLASMIN 28 mg/dL (18-36)
[2018-06-08] MEDS: Lactated Ringer's 1,000 ML IV SCH (17:00)
[2018-06-09] MEDS: Pantoprazole 40 mg EC Tab PO SCH (08:48)
[2018-06-09] MEDS: Multivitamin With Minerals Tab PO SCH (08:48)
[2018-06-09] MEDS: Lactated Ringer's 1,000 ML IV SCH (08:55)
[2018-06-09 11:17] LABS: ALB/GLOB RATIO 0.8 (1.0-2.1); ALBUMIN 2.3 g/dL (3.5-5.0); ALT/SGPT 87 U/L (21-72); AST/SGOT 150 U/L (17-59); BLOOD UREA NITROGEN 23 mg/dl (9-20); CALCIUM 7.4 mg/dL (8.4-10.2); GFR NON-AFRICAN AMERICAN > 60
--- NOTE | 2018-06-09 14:01 | CARD ---
APPROVED REPORT Date of service: 06/04/2018 EKG Measurement Heart [id number] <Conclusion> Normal sinus rhythm Low voltage QRS Nonspecific T wave abnormality Abnormal ECG
--- NOTE | 2018-06-09 14:47 | CP.PCM.PN ---
Subjective - Date & Time of Evaluation Date of Evaluation: 06/09/18 Time of Evaluation: 10:40 - Subjective Subjective: F/U Generalized weakness. Pt awake, no A/D. Objective - Vital Signs/Intake and Output Vital Signs (last 24 hours): Temp Pulse Resp BP Pulse Ox 97.5 F L 97 H 20 112/80 95 06/09/18 08:22 06/09/18 08:22 06/09/18 08:22 06/09/18 08:22 06/09/18 08:22 - Medications Medications: Current Medications Al Hydrox/Mg Hydrox/Simethicone (Maalox Plus 30 Ml) 30 ml PO Q4 PRN PRN Reason: Indigestion / Heartburn Last Admin: 06/07/18 15:02 Dose: 30 ml Docusate Sodium (Colace) 100 mg PO BID [facility] Last Admin: 06/09/18 08:48 Dose: 100 mg Ergocalciferol (Drisdol 50,000 Intl Units Cap) 1 cap PO FR [facility] Last Admin: 06/05/18 09:24 Dose: 1 cap Finasteride (Proscar) 5 mg PO DAILY [facility] Last Admin: 06/09/18 08:48 Dose: 5 mg Lactated Ringer's (Lactated Ringer's) 1,000 mls @ 60 mls/hr IV .[id number] [facility] Last Admin: 06/09/18 08:55 Dose: 60 mls/hr Multivitamins/Minerals (Therapeutic-M Tab) 1 tab PO DAILY [facility] Last Admin: 06/09/18 08:48 Dose: 1 tab Pantoprazole Sodium (Protonix Ec Tab) 40 mg PO DAILY [facility] Last Admin: 06/09/18 08:48 Dose: 40 mg Tamsulosin HCl (Flomax) 0.4 mg PO DAILY [facility] Last Admin: 06/09/18 08:48 Dose: 0.4 mg - Labs Labs: 06/08/18 04:30 06/09/18 10:19 PT 18.8 Seconds (9.8-13.1) H 06/05/18 06:00 INR 1.7 06/05/18 06:00 APTT 37.0 Seconds (25.6-37.1) 06/05/18 06:00 - Constitutional Appears: No Acute Distress, Chronically Ill - Head Exam Head Exam: NORMAL INSPECTION - Eye Exam Eye Exam: PERRL - ENT Exam ENT Exam: Normal Exam - Neck Exam Neck Exam: Normal Inspection - Respiratory Exam Respiratory Exam: Decreased Breath Sounds (at bases) - Cardiovascular Exam Cardiovascular Exam: REGULAR RHYTHM - GI/Abdominal Exam GI & Abdominal Exam: Distended, Soft, Normal Bowel Sounds - Extremities Exam Additional comments: Edema BLE - Back Exam Back Exam: NORMAL INSPECTION - Neurological Exam Neurological Exam: Alert, Oriented x3 Additional comments: Generalized weakness, no focal motor/sensory deficit. - Psychiatric Exam Psychiatric exam: Anxious - Skin Skin Exam: Warm Assessment and Plan (1) Generalized weakness Status: Acute (2) Liver cirrhosis, alcoholic Status: Chronic (3) Lack of appetite Status: Acute (4) Weight loss Status: Acute (5) Ascites Status: Acute (6) Diarrhea Status: Acute (7) Pleural effusion, bilateral Status: Acute (8) CAD (coronary artery disease) Status: Chronic (9) Hx of deep venous thrombosis Status: Chronic (10) Hx pulmonary embolism Status: Chronic (11) HLD (hyperlipidemia) Status: Chronic (12) HTN (hypertension) Status: Chronic (13) Hx of CABG Status: Chronic (14) E. coli UTI Status: Acute - Assessment and Plan (Free Text) Plan: Continue Ceftriaxone and rest of Tx. For Endoscopy in AM.
--- NOTE | 2018-06-09 19:16 | CP.PCM.PN ---
Subjective - Date & Time of Evaluation Date of Evaluation: 06/09/18 Time of Evaluation: 19:14 - Subjective Subjective: Clinically doing well. Currently w/o complaint. Objective - Vital Signs/Intake and Output Vital Signs (last 24 hours): Temp Pulse Resp BP Pulse Ox 97.7 F 94 H 20 107/72 93 L 06/09/18 17:00 06/09/18 17:00 06/09/18 17:00 06/09/18 17:00 06/09/18 15:55 - Medications Medications: Current Medications Al Hydrox/Mg Hydrox/Simethicone (Maalox Plus 30 Ml) 30 ml PO Q4 PRN PRN Reason: Indigestion / Heartburn Last Admin: 06/07/18 15:02 Dose: 30 ml Docusate Sodium (Colace) 100 mg PO BID [facility] Last Admin: 06/09/18 16:46 Dose: 100 mg Ergocalciferol (Drisdol 50,000 Intl Units Cap) 1 cap PO FR [facility] Last Admin: 06/05/18 09:24 Dose: 1 cap Finasteride (Proscar) 5 mg PO DAILY [facility] Last Admin: 06/09/18 08:48 Dose: 5 mg Lactated Ringer's (Lactated Ringer's) 1,000 mls @ 60 mls/hr IV .[id number] [facility] Last Admin: 06/09/18 08:55 Dose: 60 mls/hr Multivitamins/Minerals (Therapeutic-M Tab) 1 tab PO DAILY [facility] Last Admin: 06/09/18 08:48 Dose: 1 tab Pantoprazole Sodium (Protonix Ec Tab) 40 mg PO DAILY [facility] Last Admin: 06/09/18 08:48 Dose: 40 mg Tamsulosin HCl (Flomax) 0.4 mg PO DAILY [facility] Last Admin: 06/09/18 08:48 Dose: 0.4 mg - Labs Labs: 06/08/18 04:30 06/09/18 10:19 PT 18.8 Seconds (9.8-13.1) H 06/05/18 06:00 INR 1.7 06/05/18 06:00 APTT 37.0 Seconds (25.6-37.1) 06/05/18 06:00 - Head Exam Head Exam: ATRAUMATIC - Eye Exam Eye Exam: Normal appearance - ENT Exam ENT Exam: Normal Exam - Neck Exam Neck Exam: Full ROM - Respiratory Exam Respiratory Exam: Clear to Ausculation Bilateral - Cardiovascular Exam Cardiovascular Exam: REGULAR RHYTHM - GI/Abdominal Exam GI & Abdominal Exam: Soft. absent: Tenderness Assessment and Plan (1) Ascites Status: Acute (2) Enteritis Assessment & Plan: Evidence of thickened small bowel on CT. Enteroscopy tomorrow. Status: Acute
[2018-06-10] MEDS: Lactated Ringer's 1,000 ML IV SCH (04:09)
[2018-06-10] MEDS: Pantoprazole 40 mg EC Tab PO SCH ×2 (08:19→18:47)
[2018-06-10] MEDS: Multivitamin With Minerals Tab PO SCH ×2 (08:19→18:46)
[2018-06-10] MEDS ORDERED: Lactated Ringer's 500 ML IV ONE (08:37)
[2018-06-10] MEDS ORDERED: Midazolam 2 MG/2 ML VIAL ONE (08:44)
[2018-06-10] MEDS ORDERED: Etomidate 20 mg/10ml Inj IV ONE (08:44)
[2018-06-10] MEDS ORDERED: Dextrose 50% SYRINGE Inj (50 ml) ONE (12:52)
--- NOTE | 2018-06-10 14:18 | CP.PCM.PN ---
Subjective - Date & Time of Evaluation Date of Evaluation: 06/10/18 Time of Evaluation: 11:30 - Subjective Subjective: F/U Generalized weakness. S/P Endoscopy. Pt awake, no c/o of abdominal pain. Objective - Vital Signs/Intake and Output Vital Signs (last 24 hours): Temp Pulse Resp BP Pulse Ox 96 F L 80 18 105/70 100 06/10/18 10:05 06/10/18 10:05 06/10/18 10:05 06/10/18 10:05 06/10/18 10:05 Intake and Output: 06/10/18 06/10/18 06:59 18:59 Intake Total 150 Balance 150 - Medications Medications: Current Medications Al Hydrox/Mg Hydrox/Simethicone (Maalox Plus 30 Ml) 30 ml PO Q4 PRN PRN Reason: Indigestion / Heartburn Last Admin: 06/07/18 15:02 Dose: 30 ml Docusate Sodium (Colace) 100 mg PO BID [facility] Last Admin: 06/10/18 08:19 Dose: Not Given Ergocalciferol (Drisdol 50,000 Intl Units Cap) 1 cap PO FR [facility] Last Admin: 06/05/18 09:24 Dose: 1 cap Finasteride (Proscar) 5 mg PO DAILY [facility] Last Admin: 06/10/18 08:19 Dose: Not Given Furosemide (Lasix) 40 mg PO Q12 [facility] Ceftriaxone Sodium 1 gm/ (Sodium Chloride) 100 mls @ 100 mls/hr IVPB DAILY [facility]; Protocol Multivitamins/Minerals (Therapeutic-M Tab) 1 tab PO DAILY [facility] Last Admin: 06/10/18 08:19 Dose: Not Given Pantoprazole Sodium (Protonix Ec Tab) 40 mg PO DAILY [facility] Last Admin: 06/10/18 08:19 Dose: Not Given Spironolactone (Aldactone) 25 mg PO BID [facility] Tamsulosin HCl (Flomax) 0.4 mg PO DAILY [facility] Last Admin: 06/10/18 08:19 Dose: Not Given - Labs Labs: 06/08/18 04:30 06/09/18 10:19 PT 18.8 Seconds (9.8-13.1) H 06/05/18 06:00 INR 1.7 06/05/18 06:00 APTT 37.0 Seconds (25.6-37.1) 06/05/18 06:00 - Constitutional Appears: Chronically Ill - Head Exam Head Exam: NORMAL INSPECTION - Eye Exam Eye Exam: PERRL - ENT Exam ENT Exam: Normal Exam - Neck Exam Neck Exam: Normal Inspection - Respiratory Exam Respiratory Exam: Decreased Breath Sounds (at bases) - Cardiovascular Exam Cardiovascular Exam: REGULAR RHYTHM - GI/Abdominal Exam GI & Abdominal Exam: Distended, Soft, Normal Bowel Sounds - Extremities Exam Additional comments: Edema BLE - Back Exam Back Exam: NORMAL INSPECTION - Neurological Exam Neurological Exam: Alert, Oriented x3 Additional comments: Generalized weakness, no focal motor/sensory deficit. - Psychiatric Exam Psychiatric exam: Anxious - Skin Skin Exam: Warm Assessment and Plan (1) Generalized weakness Status: Acute (2) E. coli UTI Status: Acute (3) Liver cirrhosis, alcoholic Status: Chronic (4) Lack of appetite Status: Acute (5) Weight loss Status: Acute (6) Ascites Status: Acute (7) Diarrhea Status: Acute (8) Pleural effusion, bilateral Status: Acute (9) CAD (coronary artery disease) Status: Chronic (10) Hx of deep venous thrombosis Status: Chronic (11) Hx pulmonary embolism Status: Chronic (12) HLD (hyperlipidemia) Status: Chronic (13) HTN (hypertension) Status: Chronic (14) Hx of CABG Status: Chronic - Assessment and Plan (Free Text) Plan: Continue Ceftriaxone, Furosemide, Aldactone and rest of Tx.
[2018-06-10] MEDS ORDERED: Dextrose 50% SYRINGE Inj (50 ml) IVP ONE (16:03)
[2018-06-10 20:48] LABS: HEMOGLOBIN 8.8 g/dL (12.0-18.0); MEAN CELL VOLUME 82.6 fl (80.0-94.0); MEAN CORPUSCULAR HEMOGLOBIN 26.5 pg (27.0-31.0); MEAN CORPUSCULAR HGB CONC 32.1 g/dL (33.0-37.0); RBC 3.32 Mil/uL (4.40-5.90); RED CELL DISTRIBUTION WIDTH 18.9 % (11.5-14.5); WHITE BLOOD COUNT 11.1 K/uL (4.8-10.8)
[2018-06-10 21:22] LABS: ALB/GLOB RATIO 0.7 (1.0-2.1); ALBUMIN 1.8 g/dL (3.5-5.0); ALT/SGPT 71 U/L (21-72); AST/SGOT 92 U/L (17-59); BLOOD UREA NITROGEN 33 mg/dl (9-20); CALCIUM 7.1 mg/dL (8.4-10.2); GFR NON-AFRICAN AMERICAN > 60
[2018-06-11] MEDS: Lidocaine 5% Patch TD SCH (09:25)
[2018-06-11] MEDS: Pantoprazole 40 mg EC Tab PO SCH (09:25)
[2018-06-11] MEDS: Multivitamin With Minerals Tab PO SCH (09:26)
[2018-06-11 11:13] LABS: HEMOGLOBIN 9.3 g/dL (12.0-18.0); MEAN CELL VOLUME 82.9 fl (80.0-94.0); MEAN CORPUSCULAR HGB CONC 32.5 g/dL (33.0-37.0); RBC 3.46 Mil/uL (4.40-5.90); RED CELL DISTRIBUTION WIDTH 18.4 % (11.5-14.5); WHITE BLOOD COUNT 8.3 K/uL (4.8-10.8)
[2018-06-11 11:34] LABS: BLOOD UREA NITROGEN 27 mg/dl (9-20); CALCIUM 6.7 mg/dL (8.4-10.2); GFR NON-AFRICAN AMERICAN > 60
[2018-06-11] MEDS ORDERED: Lidocaine 1% Inj (20ml) ONE (14:07)
--- NOTE | 2018-06-11 14:17 | PCM.SURG1 ---
Surgeon's Initial Post Op Note - Surgeon's Notes Surgeon: Michael Gallagher MD Comsec Manager: NONE Type of Anesthesia: Local Pre-Operative Diagnosis: Ascites, pain Operative Findings: US showed moderate ascites Post-Operative Diagnosis: Ascites, pain Operation Performed: US guided paracentesis Specimen/Specimens Removed: 1.7 liters of straw colored fluid Estimated Blood Loss: EBL {In ML}: 0 Blood Products Given: N/A Drains Used: No Drains Post-Op Condition: Fair Date of Surgery/Procedure: 06/11/18 Time of Surgery/Procedure: 14:25
--- NOTE | 2018-06-11 14:40 | US ---
Date of Procedure: 06/11/2018 PROCEDURE: Ultrasound-guided paracentesis, CPT 96019 Medications: 7 cc 1% Lidocaine HISTORY: Ascites, abdominal pain, cirrhosis TECHNIQUE: Following informed consent , the patient was placed supine on the stretcher and the site was marked. A limited abdominal ultrasound was performed that showed a moderate amount of intra-abdominal fluid. Procedural time out was called and the Pt's abdomen was marked and prepped and draped in the usual sterile fashion. Ultrasound-guided large volume paracentesis performed. A total of 1.7 Liters of straw colored fluid was removed without complication. IMPRESSION: Ultrasound-guided paracentesis.
[2018-06-11 14:53] LABS: BODY FLUID TYPE PERITONEAL/ASCITES
[2018-06-11 15:14] LABS: TOTAL PROTEIN,BODY FLUID < 2.0 g/dL (NONE ESTABLISHED)
[2018-06-11 15:57] LABS: BF GROSS APPEARANCE CLEAR (CLEAR)
[2018-06-11 15:58] LABS: BODY FLUID TOTAL COUNT 100 (0-0)
[2018-06-11 15:59] LABS: BODY FLUID MONO/MACROPHAGE 25 % (0-0)
--- NOTE | 2018-06-11 16:48 | CP.PCM.PN ---
Subjective - Date & Time of Evaluation Date of Evaluation: 06/11/18 Time of Evaluation: 11:50 - Subjective Subjective: F/U Generalized weakness. Pt c/o of pain in L knee and L leg, no abdominal pain. Objective - Vital Signs/Intake and Output Vital Signs (last 24 hours): Temp Pulse Resp BP Pulse Ox 97.5 F L 96 H 20 94/61 L 96 06/11/18 16:06 06/11/18 16:06 06/11/18 16:06 06/11/18 16:06 06/11/18 16:06 - Medications Medications: Current Medications Al Hydrox/Mg Hydrox/Simethicone (Maalox Plus 30 Ml) 30 ml PO Q4 PRN PRN Reason: Indigestion / Heartburn Last Admin: 06/07/18 15:02 Dose: 30 ml Docusate Sodium (Colace) 100 mg PO BID [facility] Last Admin: 06/11/18 09:22 Dose: 100 mg Ergocalciferol (Drisdol 50,000 Intl Units Cap) 1 cap PO FR [facility] Last Admin: 06/05/18 09:24 Dose: 1 cap Finasteride (Proscar) 5 mg PO DAILY [facility] Last Admin: 06/11/18 09:25 Dose: 5 mg Furosemide (Lasix) 40 mg PO Q12 [facility] Last Admin: 06/11/18 09:24 Dose: 40 mg Ceftriaxone Sodium 1 gm/ (Sodium Chloride) 100 mls @ 100 mls/hr IVPB DAILY [facility]; Protocol Last Admin: 06/11/18 09:26 Dose: 100 mls/hr Dextrose/Sodium Chloride (Dextrose 5%-0.9% Ns 500 Ml) 1,000 mls @ 90 mls/hr IV .[id number] [facility] Stop: 06/11/18 18:05 Last Admin: 06/11/18 05:22 Dose: Not Given Lidocaine (Lidoderm) 1 ea TD DAILY [facility] Last Admin: 06/11/18 09:25 Dose: 1 ea Multivitamins/Minerals (Therapeutic-M Tab) 1 tab PO DAILY [facility] Last Admin: 06/11/18 09:26 Dose: 1 tab Pantoprazole Sodium (Protonix Ec Tab) 40 mg PO DAILY [facility] Last Admin: 06/11/18 09:25 Dose: 40 mg Spironolactone (Aldactone) 25 mg PO BID [facility] Last Admin: 06/11/18 09:22 Dose: 25 mg Tamsulosin HCl (Flomax) 0.4 mg PO DAILY [facility] Last Admin: 06/11/18 09:24 Dose: 0.4 mg - Labs Labs: 06/11/18 11:03 06/11/18 11:03 PT 18.8 Seconds (9.8-13.1) H 06/05/18 06:00 INR 1.7 06/05/18 06:00 APTT 37.0 Seconds (25.6-37.1) 06/05/18 06:00 - Constitutional Appears: Chronically Ill - Head Exam Head Exam: NORMAL INSPECTION - Eye Exam Eye Exam: PERRL - ENT Exam ENT Exam: Normal Exam - Neck Exam Neck Exam: Normal Inspection - Respiratory Exam Respiratory Exam: Decreased Breath Sounds (at bases) - Cardiovascular Exam Cardiovascular Exam: REGULAR RHYTHM - GI/Abdominal Exam GI & Abdominal Exam: Distended, Soft, Normal Bowel Sounds - Extremities Exam Additional comments: Edema BLE - Back Exam Back Exam: NORMAL INSPECTION - Neurological Exam Neurological Exam: Alert, Oriented x3 Additional comments: Generalized weakness, no focal motor/sensory deficit. - Psychiatric Exam Psychiatric exam: Anxious - Skin Skin Exam: Warm Assessment and Plan (1) Generalized weakness Status: Acute (2) E. coli UTI Status: Acute (3) Liver cirrhosis, alcoholic Status: Chronic (4) Lack of appetite Status: Acute (5) Weight loss Status: Acute (6) Ascites Status: Acute (7) Diarrhea Status: Acute (8) Pleural effusion, bilateral Status: Acute (9) CAD (coronary artery disease) Status: Chronic (10) Hx of deep venous thrombosis Status: Chronic (11) Hx pulmonary embolism Status: Chronic (12) HLD (hyperlipidemia) Status: Chronic (13) HTN (hypertension) Status: Chronic (14) Hx of CABG Status: Chronic - Assessment and Plan (Free Text) Plan: To have Paracentesis by IR today. Continue ceftriaxone, Lasix, Aldactone and rest of Tx.
[2018-06-12] MEDS: Ergocalciferol 50,000 Intl Units Cap PO SCH (09:41)
[2018-06-12] MEDS: Lidocaine 5% Patch TD SCH (09:41)
[2018-06-12] MEDS: Multivitamin With Minerals Tab PO SCH (09:41)
[2018-06-12] MEDS: Pantoprazole 40 mg EC Tab PO SCH (09:41)
--- NOTE | 2018-06-12 14:24 | CP.PCM.PCO ---
Assessment & Plan - Assessment and Plan (Free Text) Assessment: Advanced directives discussed with patient with at bedside pt. wishes for DNR/DNI, discussed with family at beside as well
--- NOTE | 2018-06-12 14:32 | CP.PCM.PN ---
Subjective - Date & Time of Evaluation Date of Evaluation: 06/12/18 Time of Evaluation: 11:20 - Subjective Subjective: F/U Generalized weakness. Pt awake, answering questions, no abdominal pain. Objective - Vital Signs/Intake and Output Vital Signs (last 24 hours): Temp Pulse Resp BP Pulse Ox 97.7 F 88 19 91/57 L 100 06/12/18 09:33 06/12/18 09:33 06/12/18 09:33 06/12/18 09:36 06/12/18 09:33 - Medications Medications: Current Medications Al Hydrox/Mg Hydrox/Simethicone (Maalox Plus 30 Ml) 30 ml PO Q4 PRN PRN Reason: Indigestion / Heartburn Last Admin: 06/07/18 15:02 Dose: 30 ml Albumin Human (Albumin Human 25% (12.5 Gm/50 Ml)) 12.5 gm IV Q8 [facility] Stop: 06/13/18 19:00 Docusate Sodium (Colace) 100 mg PO BID [facility] Last Admin: 06/12/18 09:41 Dose: 100 mg Ergocalciferol (Drisdol 50,000 Intl Units Cap) 1 cap PO FR [facility] Last Admin: 06/12/18 09:41 Dose: 1 cap Finasteride (Proscar) 5 mg PO DAILY [facility] Last Admin: 06/12/18 09:41 Dose: 5 mg Furosemide (Lasix) 40 mg PO Q12 [facility] Last Admin: 06/12/18 09:36 Dose: Not Given Ceftriaxone Sodium 1 gm/ (Sodium Chloride) 100 mls @ 100 mls/hr IVPB DAILY [facility]; Protocol Last Admin: 06/12/18 09:40 Dose: 100 mls/hr Lidocaine (Lidoderm) 1 ea TD DAILY [facility] Last Admin: 06/12/18 09:41 Dose: 1 ea Multivitamins/Minerals (Therapeutic-M Tab) 1 tab PO DAILY [facility] Last Admin: 06/12/18 09:41 Dose: 1 tab Pantoprazole Sodium (Protonix Ec Tab) 40 mg PO DAILY [facility] Last Admin: 06/12/18 09:41 Dose: 40 mg Spironolactone (Aldactone) 25 mg PO BID [facility] Last Admin: 06/12/18 09:33 Dose: Not Given Tamsulosin HCl (Flomax) 0.4 mg PO DAILY [facility] Last Admin: 06/12/18 09:42 Dose: 0.4 mg - Labs Labs: 06/11/18 11:03 06/11/18 11:03 PT 18.8 Seconds (9.8-13.1) H 06/05/18 06:00 INR 1.7 06/05/18 06:00 APTT 37.0 Seconds (25.6-37.1) 06/05/18 06:00 - Constitutional Appears: No Acute Distress, Cachectic - Head Exam Head Exam: NORMAL INSPECTION - Eye Exam Eye Exam: PERRL - ENT Exam ENT Exam: Normal Exam - Neck Exam Neck Exam: Normal Inspection - Respiratory Exam Respiratory Exam: Decreased Breath Sounds (at bases) - Cardiovascular Exam Cardiovascular Exam: REGULAR RHYTHM - GI/Abdominal Exam GI & Abdominal Exam: Distended (mildly), Soft, Normal Bowel Sounds - Extremities Exam Additional comments: Generalized edema. - Back Exam Back Exam: NORMAL INSPECTION - Neurological Exam Neurological Exam: Awake, Oriented x3 Additional comments: Generalized weakness, no focal motor/sensory deficit. - Psychiatric Exam Additional comments: Calm - Skin Skin Exam: Warm Assessment and Plan (1) Generalized weakness Status: Acute (2) E. coli UTI Status: Acute (3) Liver cirrhosis, alcoholic Status: Chronic (4) Lack of appetite Status: Acute (5) Weight loss Status: Acute (6) Ascites Status: Acute (7) Diarrhea Status: Acute (8) Pleural effusion, bilateral Status: Acute (9) CAD (coronary artery disease) Status: Chronic (10) Hx of deep venous thrombosis Status: Chronic (11) Hx pulmonary embolism Status: Chronic (12) HLD (hyperlipidemia) Status: Chronic (13) HTN (hypertension) Status: Chronic (14) Hx of CABG Status: Chronic - Assessment and Plan (Free Text) Plan: Continue Lasix, Adaltone and rest of Tx, Parecentesis fluid C-S negative. Continue Rocephin for UTI. Pt and family agree with DNI/DNR.
[2018-06-12 17:18] LABS: HEMOGLOBIN 9.7 g/dL (12.0-18.0); MEAN CELL VOLUME 84.2 fl (80.0-94.0); MEAN CORPUSCULAR HEMOGLOBIN 26.8 pg (27.0-31.0); MEAN CORPUSCULAR HGB CONC 31.9 g/dL (33.0-37.0); RBC 3.62 Mil/uL (4.40-5.90); RED CELL DISTRIBUTION WIDTH 18.8 % (11.5-14.5)
[2018-06-12] MEDS: Albumin Human 25% (12.5 gm/50 ml) IV SCH (17:29)
[2018-06-12 17:42] LABS: ALB/GLOB RATIO 0.7 (1.0-2.1); ALT/SGPT 54 U/L (21-72); AST/SGOT 39 U/L (17-59); BLOOD UREA NITROGEN 19 mg/dl (9-20); CALCIUM 6.7 mg/dL (8.4-10.2); GFR NON-AFRICAN AMERICAN > 60
[2018-06-12] MEDS ORDERED: Potassium Chloride 20 mEq ER Tab PO ONE (18:02)
[2018-06-13] MEDS: Albumin Human 25% (12.5 gm/50 ml) IV SCH ×3 (00:39→17:01)
[2018-06-13] MEDS: Lidocaine 5% Patch TD SCH (09:20)
[2018-06-13] MEDS: Pantoprazole 40 mg EC Tab PO SCH (09:23)
[2018-06-13] MEDS: Multivitamin With Minerals Tab PO SCH (09:24)
--- NOTE | 2018-06-13 15:03 | CP.PCM.PN ---
Subjective - Date & Time of Evaluation Date of Evaluation: 06/13/18 Time of Evaluation: 10:00 - Subjective Subjective: Patient seen and examined. Appeared very weak but no complaint Objective - Vital Signs/Intake and Output Vital Signs (last 24 hours): Temp Pulse Resp BP Pulse Ox 97.6 F 93 H 20 95/61 L 95 06/13/18 08:37 06/13/18 08:37 06/13/18 08:37 06/13/18 09:21 06/13/18 08:37 - Medications Medications: Current Medications Al Hydrox/Mg Hydrox/Simethicone (Maalox Plus 30 Ml) 30 ml PO Q4 PRN PRN Reason: Indigestion / Heartburn Last Admin: 06/07/18 15:02 Dose: 30 ml Albumin Human (Albumin Human 25% (12.5 Gm/50 Ml)) 12.5 gm IV Q8 [facility] Stop: 06/13/18 19:00 Last Admin: 06/13/18 09:13 Dose: 12.5 gm Docusate Sodium (Colace) 100 mg PO BID [facility] Last Admin: 06/13/18 09:23 Dose: 100 mg Ergocalciferol (Drisdol 50,000 Intl Units Cap) 1 cap PO FR [facility] Last Admin: 06/12/18 09:41 Dose: 1 cap Finasteride (Proscar) 5 mg PO DAILY [facility] Last Admin: 06/13/18 09:23 Dose: 5 mg Furosemide (Lasix) 40 mg PO Q12 [facility] Last Admin: 06/13/18 09:21 Dose: Not Given Ceftriaxone Sodium 1 gm/ (Sodium Chloride) 100 mls @ 100 mls/hr IVPB DAILY [facility]; Protocol Last Admin: 06/13/18 09:14 Dose: 100 mls/hr Lidocaine (Lidoderm) 1 ea TD DAILY [facility] Last Admin: 06/13/18 09:20 Dose: 1 ea Multivitamins/Minerals (Therapeutic-M Tab) 1 tab PO DAILY [facility] Last Admin: 06/13/18 09:24 Dose: 1 tab Pantoprazole Sodium (Protonix Ec Tab) 40 mg PO DAILY [facility] Last Admin: 06/13/18 09:23 Dose: 40 mg Spironolactone (Aldactone) 25 mg PO BID [facility] Last Admin: 06/13/18 09:22 Dose: Not Given Tamsulosin HCl (Flomax) 0.4 mg PO DAILY [facility] Last Admin: 06/13/18 09:23 Dose: 0.4 mg - Labs Labs: 06/12/18 16:51 06/12/18 16:51 PT 18.8 Seconds (9.8-13.1) H 06/05/18 06:00 INR 1.7 06/05/18 06:00 APTT 37.0 Seconds (25.6-37.1) 06/05/18 06:00 - Constitutional Appears: No Acute Distress, Cachectic, Chronically Ill - Head Exam Head Exam: ATRAUMATIC - Eye Exam Eye Exam: absent: Scleral icterus - ENT Exam ENT Exam: Mucous Membranes Moist - Neck Exam Neck Exam: absent: Meningismus - Respiratory Exam Respiratory Exam: absent: Rales, Rhonchi, Wheezes, Respiratory Distress - Cardiovascular Exam Cardiovascular Exam: REGULAR RHYTHM, +S1, +S2 - GI/Abdominal Exam GI & Abdominal Exam: Soft. absent: Tenderness - Rectal Exam Rectal Exam: Deferred - Neurological Exam Neurological Exam: Alert, Oriented x3 - Psychiatric Exam Psychiatric exam: Normal Affect - Skin Skin Exam: Dry, Intact Assessment and Plan - Assessment and Plan (Free Text) Assessment: 87 yo male with history of Liver Cirrhosis, HTN, Thromboembolism (DVT/PE), CAD (CABG/Stent) admitted because of worsening generalized weakness and anorexia. 1. Weakness secondary to cirrhosis and ascites causing patient to have very poor apetite 2. UTI urine culture grew E coli sensitive to Rocephin continue Rocephin 1gm IV daily 3. Liver Cirrhosis continue Lasix and Aldactone 4. CAD asymptomatic 5. History of Thromboembolism has IVC filter
[2018-06-14] MEDS: Lidocaine 5% Patch TD SCH (08:54)
[2018-06-14] MEDS: Pantoprazole 40 mg EC Tab PO SCH (08:56)
[2018-06-14] MEDS: Multivitamin With Minerals Tab PO SCH (08:56)
[2018-06-14 14:16] LABS: BLOOD UREA NITROGEN 11 mg/dl (9-20); CALCIUM 6.9 mg/dL (8.4-10.2); GFR NON-AFRICAN AMERICAN > 60
[2018-06-14] MEDS ORDERED: Dextrose 5%/0.45% NS 1,000 ML IV SCH (15:30)
--- NOTE | 2018-06-14 15:33 | CP.PCM.PN ---
Subjective - Date & Time of Evaluation Date of Evaluation: 06/14/18 Time of Evaluation: 13:00 - Subjective Subjective: Patient seen and examined. Appeared very weak but denied any complaint. Objective - Vital Signs/Intake and Output Vital Signs (last 24 hours): Temp Pulse Resp BP Pulse Ox 97.9 F 71 19 116/77 95 06/14/18 07:55 06/14/18 07:55 06/14/18 07:55 06/14/18 08:56 06/14/18 07:55 - Medications Medications: Current Medications Al Hydrox/Mg Hydrox/Simethicone (Maalox Plus 30 Ml) 30 ml PO Q4 PRN PRN Reason: Indigestion / Heartburn Last Admin: 06/07/18 15:02 Dose: 30 ml Docusate Sodium (Colace) 100 mg PO BID [facility] Last Admin: 06/14/18 08:56 Dose: 100 mg Ergocalciferol (Drisdol 50,000 Intl Units Cap) 1 cap PO FR [facility] Last Admin: 06/12/18 09:41 Dose: 1 cap Finasteride (Proscar) 5 mg PO DAILY [facility] Last Admin: 06/14/18 08:56 Dose: 5 mg Furosemide (Lasix) 40 mg PO Q12 [facility] Last Admin: 06/14/18 08:56 Dose: 40 mg Ceftriaxone Sodium 1 gm/ (Sodium Chloride) 100 mls @ 100 mls/hr IVPB DAILY [facility]; Protocol Last Admin: 06/13/18 09:14 Dose: 100 mls/hr Potassium Chloride (Potassium Cl 10meq/50ml Sterile Water) 50 mls @ 50 mls/hr IVPB Q1 [facility] Stop: 06/14/18 19:59 Dextrose/Sodium Chloride (Dextrose 5%/0.45% Ns 1000 Ml) 1,000 mls @ 100 mls/hr IV .Q10H [facility] Stop: 06/15/18 15:27 Lidocaine (Lidoderm) 1 ea TD DAILY [facility] Last Admin: 06/14/18 08:54 Dose: 1 ea Multivitamins/Minerals (Therapeutic-M Tab) 1 tab PO DAILY [facility] Last Admin: 06/14/18 08:56 Dose: 1 tab Pantoprazole Sodium (Protonix Ec Tab) 40 mg PO DAILY [facility] Last Admin: 06/14/18 08:56 Dose: 40 mg Spironolactone (Aldactone) 25 mg PO BID [facility] Last Admin: 06/14/18 08:56 Dose: 25 mg Tamsulosin HCl (Flomax) 0.4 mg PO DAILY [facility] Last Admin: 06/14/18 08:56 Dose: 0.4 mg - Labs Labs: 06/12/18 16:51 06/14/18 13:00 PT 18.8 Seconds (9.8-13.1) H 06/05/18 06:00 INR 1.7 06/05/18 06:00 APTT 37.0 Seconds (25.6-37.1) 06/05/18 06:00 - Constitutional Appears: No Acute Distress, Cachectic, Chronically Ill - Head Exam Head Exam: ATRAUMATIC - Eye Exam Eye Exam: absent: Scleral icterus - ENT Exam ENT Exam: Mucous Membranes Moist - Neck Exam Neck Exam: absent: Meningismus - Respiratory Exam Respiratory Exam: absent: Rales, Rhonchi, Wheezes, Respiratory Distress - Cardiovascular Exam Cardiovascular Exam: REGULAR RHYTHM, +S1, +S2 - GI/Abdominal Exam GI & Abdominal Exam: Soft. absent: Tenderness - Rectal Exam Rectal Exam: Deferred - Neurological Exam Neurological Exam: Alert, Oriented x3 - Psychiatric Exam Psychiatric exam: Flat Affect - Skin Skin Exam: Dry, Intact Assessment and Plan - Assessment and Plan (Free Text) Assessment: 87 yo male with history of Liver Cirrhosis, HTN, Thromboembolism (DVT/PE), CAD (CABG/Stent) admitted because of worsening generalized weakness and anorexia. 1. Weakness secondary to cirrhosis and ascites causing patient to have very poor apetite episodes of hypoglycemia but was asymptomatic continue D5 half-NSS 100cc/hr 2. UTI urine culture grew E coli sensitive to Rocephin continue Rocephin 1gm IV daily (started on 06/10/18) repeat urinalysis tomorrow 3. Liver Cirrhosis continue Lasix and Aldactone 4. CAD asymptomatic 5. History of Thromboembolism has IVC filter
[2018-06-14] MEDS: Potassium CL 10 MEQ/50 ML 50 ML IVPB SCH ×4 (16:47→21:55)
[2018-06-14] MEDS ORDERED: Dextrose 5%/Lactated Ringer's 1,000 ML IV SCH (21:15)
[2018-06-14] MEDS ORDERED: Potassium Chloride 20 mEq ER Tab PO SCH ×2 (21:15)
[2018-06-14] MEDS ORDERED: Potassium CL 10 MEQ/50 ML 50 ML IVPB ONE (21:38)
[2018-06-15] MEDS: Multivitamin With Minerals Tab PO SCH (09:24)
[2018-06-15] MEDS: Lidocaine 5% Patch TD SCH (09:24)
[2018-06-15] MEDS: Pantoprazole 40 mg EC Tab PO SCH (09:24)
--- NOTE | 2018-06-15 13:00 | RAD ---
Date of service: 06/15/2018 HISTORY: f/u COMPARISON: Portable chest 06/04/2018. TECHNIQUE: Chest PA and lateral FINDINGS: LUNGS: Small bilateral pleural effusions are reiterated. Limited residual airspace disease remains at the medial left base. No definite pneumothorax bilaterally. PLEURA: As above. CARDIOVASCULAR: Calcific atherosclerotic changes are seen related to the thoracic aorta. Post CABG changes reiterated including median sternotomy. Normal cardiac size. No pulmonary vascular congestion. OSSEOUS STRUCTURES: No significant abnormalities. VISUALIZED UPPER ABDOMEN: Tip of IVC filter reiterated. OTHER FINDINGS: None. IMPRESSION: Improved atelectasis or infiltrate medial left base with small bilateral pleural effusions unchanged. No right-sided infiltrate. No pulmonary vascular congestion evident.
[2018-06-15 13:03] LABS: SQUAMOUS EPITHIAL 1 /hpf (0-5); URINE BACTERIA RARE (<OCC); URINE BILIRUBIN NEGATIVE (NEGATIVE); URINE BLOOD NEGATIVE (NEGATIVE); URINE CLARITY SLIGHTY-CLOUDY (Clear); URINE COLOR YELLOW (YELLOW); URINE GLUCOSE (UA) NEG (NEGATIVE); URINE LEUKOCYTE ESTERASE NEG Leu/uL (Negative); URINE PROTEIN NEGATIVE (NEGATIVE)
--- NOTE | 2018-06-15 14:03 | CP.PCM.PN ---
Subjective - Date & Time of Evaluation Date of Evaluation: 06/15/18 Time of Evaluation: 11:30 - Subjective Subjective: Patient seen and examined. Had no complaint but appeared weak Objective - Vital Signs/Intake and Output Vital Signs (last 24 hours): Temp Pulse Resp BP Pulse Ox 97.6 F 81 19 94/68 L 96 06/15/18 08:09 06/15/18 08:09 06/15/18 08:09 06/15/18 08:09 06/15/18 08:09 - Medications Medications: Current Medications Al Hydrox/Mg Hydrox/Simethicone (Maalox Plus 30 Ml) 30 ml PO Q4 PRN PRN Reason: Indigestion / Heartburn Last Admin: 06/07/18 15:02 Dose: 30 ml Dextrose (Dextrose 50% Inj) 50 ml IVP Q2H PRN PRN Reason: Other if Blood glucose <70 Docusate Sodium (Colace) 100 mg PO BID [facility] Last Admin: 06/15/18 09:25 Dose: 100 mg Ergocalciferol (Drisdol 50,000 Intl Units Cap) 1 cap PO FR [facility] Last Admin: 06/12/18 09:41 Dose: 1 cap Finasteride (Proscar) 5 mg PO DAILY [facility] Last Admin: 06/15/18 09:25 Dose: 5 mg Furosemide (Lasix) 40 mg PO Q12 [facility] Last Admin: 06/15/18 09:23 Dose: Not Given Ceftriaxone Sodium 1 gm/ (Sodium Chloride) 100 mls @ 100 mls/hr IVPB DAILY [facility]; Protocol Last Admin: 06/15/18 09:30 Dose: 100 mls/hr Dextrose/Lactated Ringer's (Dextrose 5%/Lactated Ringer's) 1,000 mls @ 42 mls/hr IV .[id number] [facility] Stop: 06/15/18 21:03 Last Admin: 06/14/18 21:42 Dose: 42 mls/hr Lidocaine (Lidoderm) 1 ea TD DAILY [facility] Last Admin: 06/15/18 09:24 Dose: 1 ea Multivitamins/Minerals (Therapeutic-M Tab) 1 tab PO DAILY [facility] Last Admin: 06/15/18 09:24 Dose: 1 tab Pantoprazole Sodium (Protonix Ec Tab) 40 mg PO DAILY [facility] Last Admin: 06/15/18 09:24 Dose: 40 mg Spironolactone (Aldactone) 25 mg PO BID [facility] Last Admin: 06/15/18 09:25 Dose: Not Given Tamsulosin HCl (Flomax) 0.4 mg PO DAILY [facility] Last Admin: 06/15/18 09:24 Dose: 0.4 mg - Labs Labs: 06/12/18 16:51 06/14/18 13:00 PT 18.8 Seconds (9.8-13.1) H 06/05/18 06:00 INR 1.7 06/05/18 06:00 APTT 37.0 Seconds (25.6-37.1) 06/05/18 06:00 - Constitutional Appears: No Acute Distress - Head Exam Head Exam: ATRAUMATIC - Eye Exam Eye Exam: absent: Scleral icterus - ENT Exam ENT Exam: Mucous Membranes Moist - Neck Exam Neck Exam: absent: Meningismus - Respiratory Exam Respiratory Exam: absent: Rales, Rhonchi, Wheezes, Respiratory Distress - Cardiovascular Exam Cardiovascular Exam: REGULAR RHYTHM, +S1, +S2 - GI/Abdominal Exam GI & Abdominal Exam: Soft. absent: Tenderness - Rectal Exam Rectal Exam: Deferred - Neurological Exam Neurological Exam: Alert - Psychiatric Exam Psychiatric exam: Flat Affect - Skin Skin Exam: Dry, Intact Assessment and Plan - Assessment and Plan (Free Text) Assessment: 87 yo male with history of Liver Cirrhosis, HTN, Thromboembolism (DVT/PE), CAD (CABG/Stent) admitted because of worsening generalized weakness and anorexia. 1. Weakness secondary to cirrhosis and ascites causing patient to have very poor apetite not hypoglycemic today 2. UTI urine culture grew E coli sensitive to Rocephin urinalysis - negative leukocyte esterase DC IV antibiotic today 3. Liver Cirrhosis continue Lasix and Aldactone 4. CAD asymptomatic 5. History of Thromboembolism has IVC filter
[2018-06-16] MEDS: Multivitamin With Minerals Tab PO SCH (08:21)
[2018-06-16] MEDS: Pantoprazole 40 mg EC Tab PO SCH (08:21)
[2018-06-16] MEDS: Lidocaine 5% Patch TD SCH (08:22)
[2018-06-16] MEDS ORDERED: Potassium Chloride 20 mEq ER Tab PO SCH (10:00)
--- NOTE | 2018-06-16 10:03 | CP.PCM.PN ---
Subjective - Date & Time of Evaluation Date of Evaluation: 06/16/18 Time of Evaluation: 09:20 - Subjective Subjective: Patient seen and examined. Continue to appear very weak but denied any complaint. Asleep most of the time. Objective - Vital Signs/Intake and Output Vital Signs (last 24 hours): Temp Pulse Resp BP Pulse Ox 98.1 F 86 18 103/66 96 06/16/18 08:01 06/16/18 08:01 06/16/18 08:01 06/16/18 08:22 06/16/18 08:01 - Medications Medications: Current Medications Al Hydrox/Mg Hydrox/Simethicone (Maalox Plus 30 Ml) 30 ml PO Q4 PRN PRN Reason: Indigestion / Heartburn Last Admin: 06/07/18 15:02 Dose: 30 ml Dextrose (Dextrose 50% Inj) 50 ml IVP Q2H PRN PRN Reason: Other if Blood glucose <70 Docusate Sodium (Colace) 100 mg PO BID [facility] Last Admin: 06/16/18 08:21 Dose: 100 mg Ergocalciferol (Drisdol 50,000 Intl Units Cap) 1 cap PO FR [facility] Last Admin: 06/12/18 09:41 Dose: 1 cap Finasteride (Proscar) 5 mg PO DAILY [facility] Last Admin: 06/16/18 08:21 Dose: 5 mg Furosemide (Lasix) 40 mg PO Q12 [facility] Last Admin: 06/16/18 08:22 Dose: 40 mg Lidocaine (Lidoderm) 1 ea TD DAILY [facility] Last Admin: 06/16/18 08:22 Dose: 1 ea Multivitamins/Minerals (Therapeutic-M Tab) 1 tab PO DAILY [facility] Last Admin: 06/16/18 08:21 Dose: 1 tab Pantoprazole Sodium (Protonix Ec Tab) 40 mg PO DAILY [facility] Last Admin: 06/16/18 08:21 Dose: 40 mg Potassium Chloride (K-Dur 20 Meq Er Tab) 20 meq PO DAILY [facility] Spironolactone (Aldactone) 25 mg PO BID [facility] Last Admin: 06/16/18 08:20 Dose: 25 mg Tamsulosin HCl (Flomax) 0.4 mg PO DAILY [facility] Last Admin: 06/16/18 08:21 Dose: 0.4 mg - Labs Labs: 06/12/18 16:51 06/14/18 13:00 PT 18.8 Seconds (9.8-13.1) H 06/05/18 06:00 INR 1.7 06/05/18 06:00 APTT 37.0 Seconds (25.6-37.1) 06/05/18 06:00 - Constitutional Appears: No Acute Distress, Cachectic, Chronically Ill - Head Exam Head Exam: ATRAUMATIC - Eye Exam Eye Exam: absent: Scleral icterus - ENT Exam ENT Exam: Mucous Membranes Moist - Neck Exam Neck Exam: absent: Meningismus - Respiratory Exam Respiratory Exam: absent: Rales, Rhonchi, Wheezes, Respiratory Distress - Cardiovascular Exam Cardiovascular Exam: REGULAR RHYTHM, +S1, +S2 - GI/Abdominal Exam GI & Abdominal Exam: Soft. absent: Tenderness - Rectal Exam Rectal Exam: Deferred - Extremities Exam Extremities Exam: Pedal Edema - Neurological Exam Neurological Exam: Alert - Psychiatric Exam Psychiatric exam: Flat Affect - Skin Skin Exam: Dry, Intact Assessment and Plan - Assessment and Plan (Free Text) Assessment: 87 yo male with history of Liver Cirrhosis, HTN, Thromboembolism (DVT/PE) and CAD (CABG/Stent) admitted because of generalized weakness and anorexia. 1. Weakness secondary to cirrhosis and ascites with anorexia goes into hypoglycemia on and off but asymptomatic hypoglycemia secondary to starvation not hypoglycemic today 2. UTI resolved urine culture grew E coli completed 6 day course of IV Rocephin 3. 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 CAD asymptomatic 5. History of Thromboembolism has IVC filter
[2018-06-16 11:53] LABS: BLOOD UREA NITROGEN 20 mg/dl (9-20); GFR NON-AFRICAN AMERICAN > 60
[2018-06-16 11:54] LABS: CALCIUM 6.7 mg/dL (8.4-10.2)
[2018-06-17] MEDS: Dextrose 5%/Lactated Ringer's 1,000 ML IV SCH (03:01)
[2018-06-17] MEDS ORDERED: Potassium Chloride 20 mEq ER Tab PO SCH (09:00)
[2018-06-17] MEDS: Multivitamin With Minerals Tab PO SCH ×3 (09:10→13:36)
[2018-06-17] MEDS: Pantoprazole 40 mg EC Tab PO SCH ×3 (09:17→13:35)
[2018-06-17] MEDS ORDERED: Potassium Chloride 20 mEq/15 ml LIQ UD PO ONE (09:39)
--- NOTE | 2018-06-17 10:56 | CP.PCM.PN ---
<Tito Mantilla - Last Filed: 06/17/18 13:35> Subjective - Date & Time of Evaluation Date of Evaluation: 06/17/18 Time of Evaluation: 10:00 - Subjective Subjective: Patient seen and examined. Afebrile, alert, awake but appears weak. Denies any new complains today. Denies any fever, CP, SOB, calf tenderness or abdominal pain. Objective - Vital Signs/Intake and Output Vital Signs (last 24 hours): Temp Pulse Resp BP Pulse Ox 97.4 F L 74 18 123/85 98 06/17/18 07:58 06/17/18 07:58 06/17/18 07:58 06/17/18 07:58 06/17/18 07:58 - Medications Medications: Current Medications Al Hydrox/Mg Hydrox/Simethicone (Maalox Plus 30 Ml) 30 ml PO Q4 PRN PRN Reason: Indigestion / Heartburn Last Admin: 06/07/18 15:02 Dose: 30 ml Dextrose (Dextrose 50% Inj) 50 ml IVP Q2H PRN PRN Reason: Other if Blood glucose <70 Docusate Sodium (Colace) 100 mg PO BID [facility] Last Admin: 06/17/18 09:12 Dose: 100 mg Ergocalciferol (Drisdol 50,000 Intl Units Cap) 1 cap PO FR [facility] Last Admin: 06/12/18 09:41 Dose: 1 cap Finasteride (Proscar) 5 mg PO DAILY [facility] Last Admin: 06/17/18 09:15 Dose: 5 mg Furosemide (Lasix) 40 mg PO Q12 [facility] Last Admin: 06/16/18 20:31 Dose: Not Given Dextrose/Lactated Ringer's (Dextrose 5%/Lactated Ringer's) 1,000 mls @ 42 mls/hr IV .[id number] [facility] Stop: 06/18/18 02:55 Last Admin: 06/17/18 03:01 Dose: 42 mls/hr Potassium Chloride (Potassium Chloride 10 Meq/100 Ml) 100 mls @ 100 mls/hr IVPB Q1 [facility] Stop: 06/17/18 12:59 Dextrose/ Lactated Ringer's 2,000 mls @ 42 mls/hr IV .Q24H [facility] Stop: 06/18/18 10:12 Lidocaine (Lidoderm) 1 ea TD DAILY [facility] Last Admin: 06/16/18 08:22 Dose: 1 ea Multivitamins/Minerals (Therapeutic-M Tab) 1 tab PO DAILY [facility] Last Admin: 06/17/18 09:10 Dose: 1 tab Pantoprazole Sodium (Protonix Ec Tab) 40 mg PO DAILY [facility] Last Admin: 06/17/18 09:17 Dose: 40 mg Potassium Chloride (K-Dur 20 Meq Er Tab) 40 meq PO DAILY [facility] Spironolactone (Aldactone) 25 mg PO BID [facility] Last Admin: 06/17/18 09:06 Dose: 25 mg Tamsulosin HCl (Flomax) 0.4 mg PO DAILY [facility] Last Admin: 06/17/18 09:16 Dose: 0.4 mg - Labs Labs: 06/12/18 16:51 06/16/18 11:29 PT 18.8 Seconds (9.8-13.1) H 06/05/18 06:00 INR 1.7 06/05/18 06:00 APTT 37.0 Seconds (25.6-37.1) 06/05/18 06:00 - Constitutional Appears: No Acute Distress - Head Exam Head Exam: ATRAUMATIC, NORMOCEPHALIC - Eye Exam Eye Exam: EOMI, Normal appearance - ENT Exam ENT Exam: Mucous Membranes Moist - Neck Exam Neck Exam: Full ROM - Respiratory Exam Respiratory Exam: Clear to Ausculation Bilateral, NORMAL BREATHING PATTERN. absent: Rales, Rhonchi, Wheezes, Respiratory Distress - Cardiovascular Exam Cardiovascular Exam: REGULAR RHYTHM, +S1, +S2. absent: Murmur - GI/Abdominal Exam GI & Abdominal Exam: Soft, Normal Bowel Sounds. absent: Distended, Tenderness - Extremities Exam Extremities Exam: absent: Calf Tenderness, Pedal Edema, Tenderness - Neurological Exam Neurological Exam: Alert, Awake, Oriented x3 - Psychiatric Exam Psychiatric exam: Normal Affect, Normal Mood - Skin Skin Exam: Dry, Intact, Normal Color, Warm Assessment and Plan - Assessment and Plan (Free Text) Assessment: 87 yo male with history of Liver Cirrhosis, HTN, Thromboembolism (DVT/PE) and CAD (CABG/Stent) admitted because of generalized weakness and anorexia. Plan: Generalized Weakness/ Cachexia secondary to cirrhosis and ascites with anorexia goes into hypoglycemia on and off but asymptomatic D5 switched to D10 @ 42 ml/hr hypoglycemia secondary to starvation not hypoglycemic today Hypokalemia K+ 3.1 today Likely secondary to lasix Increase K-Dur form 20 to 40 meq daily Pt received 30 KCL today Monitor bmp UTI resolved urine culture grew E coli completed 6 day course of IV Rocephin 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 on 80mg of Lasix daily causing hypokalemia KDur 20mg PO daily repeat BMP today CAD asymptomatic History of Thromboembolism has IVC filter <Lillian Wright K - Last Filed: 06/17/18 13:44> Objective - Vital Signs/Intake and Output Vital Signs (last 24 hours): Temp Pulse Resp BP Pulse Ox 97.4 F L 74 18 120/74 98 06/17/18 07:58 06/17/18 07:58 06/17/18 07:58 06/17/18 13:39 06/17/18 07:58 - Medications Medications: Current Medications Al Hydrox/Mg Hydrox/Simethicone (Maalox Plus 30 Ml) 30 ml PO Q4 PRN PRN Reason: Indigestion / Heartburn Last Admin: 06/07/18 15:02 Dose: 30 ml Dextrose (Dextrose 50% Inj) 50 ml IVP Q2H PRN PRN Reason: Other if Blood glucose <70 Docusate Sodium (Colace) 100 mg PO BID [facility] Last Admin: 06/17/18 13:36 Dose: 100 mg Ergocalciferol (Drisdol 50,000 Intl Units Cap) 1 cap PO FR [facility] Last Admin: 06/12/18 09:41 Dose: 1 cap Finasteride (Proscar) 5 mg PO DAILY [facility] Last Admin: 06/17/18 13:35 Dose: 5 mg Furosemide (Lasix) 40 mg PO Q12 [facility] Last Admin: 06/17/18 13:39 Dose: 40 mg Dextrose/Lactated Ringer's (Dextrose 5%/Lactated Ringer's) 1,000 mls @ 42 mls/hr IV .[id number] [facility] Stop: 06/18/18 02:55 Last Admin: 06/17/18 03:01 Dose: 42 mls/hr Lidocaine (Lidoderm) 1 ea TD DAILY [facility] Last Admin: 06/17/18 13:35 Dose: 1 ea Multivitamins/Minerals (Therapeutic-M Tab) 1 tab PO DAILY [facility] Last Admin: 06/17/18 13:36 Dose: 1 tab Pantoprazole Sodium (Protonix Ec Tab) 40 mg PO DAILY [facility] Last Admin: 06/17/18 13:35 Dose: 40 mg Potassium Chloride (K-Dur 20 Meq Er Tab) 40 meq PO DAILY [facility] Last Admin: 06/17/18 13:41 Dose: 40 meq Spironolactone (Aldactone) 25 mg PO BID [facility] Last Admin: 06/17/18 13:35 Dose: 25 mg Tamsulosin HCl (Flomax) 0.4 mg PO DAILY [facility] Last Admin: 06/17/18 13:36 Dose: 0.4 mg - Labs Labs: 06/12/18 16:51 06/16/18 11:29 PT 18.8 Seconds (9.8-13.1) H 06/05/18 06:00 INR 1.7 06/05/18 06:00 APTT 37.0 Seconds (25.6-37.1) 06/05/18 06:00 Attending/Attestation - Attestation I have personally seen and examined this patient.: Yes I have fully participated in the care of the patient.: Yes I have reviewed all pertinent clinical information, including history, physical exam and plan: Yes Notes (Text): 06/17/18 13:44 Seen, examined, and discussed with resident. Agree with findings and plan as above.
[2018-06-17] MEDS ORDERED: DEXTROSE 10% IV SCH (11:00)
[2018-06-17] MEDS ORDERED: LACTATED RINGER S IV SCH (11:00)
[2018-06-17] MEDS ORDERED: WATER IV SCH (11:00)
[2018-06-17] MEDS: Potassium CL 10mEq/100ml 100 ML IVPB SCH ×3 (12:22→19:01)
[2018-06-17] MEDS: Potassium Chloride 20 mEq ER Tab PO SCH ×2 (13:20→13:41)
[2018-06-17] MEDS: Lidocaine 5% Patch TD SCH (13:35)
[2018-06-18] MEDS: Dextrose 5%/Lactated Ringer's 1,000 ML IV SCH (04:30)
[2018-06-18] MEDS: Potassium Chloride 20 mEq ER Tab PO SCH (08:21)
[2018-06-18] MEDS: Lidocaine 5% Patch TD SCH (08:22)
[2018-06-18] MEDS: Pantoprazole 40 mg EC Tab PO SCH (08:23)
[2018-06-18] MEDS: Multivitamin With Minerals Tab PO SCH (08:23)
--- NOTE | 2018-06-18 11:57 | CP.PCM.PN ---
<Tito Mantilla - Last Filed: 06/18/18 12:01> Subjective - Date & Time of Evaluation Date of Evaluation: 06/18/18 Time of Evaluation: 09:35 - Subjective Subjective: Patient seen and examined. Afebrile, alert, awake but appears weak. Denies any new complains today. Denies any fever, CP, SOB, calf tenderness or abdominal pain. Objective - Vital Signs/Intake and Output Vital Signs (last 24 hours): Temp Pulse Resp BP Pulse Ox 97.4 F L 68 20 102/65 97 06/18/18 08:20 06/18/18 08:20 06/18/18 08:20 06/18/18 08:21 06/18/18 08:20 - Medications Medications: Current Medications Al Hydrox/Mg Hydrox/Simethicone (Maalox Plus 30 Ml) 30 ml PO Q4 PRN PRN Reason: Indigestion / Heartburn Last Admin: 06/07/18 15:02 Dose: 30 ml Dextrose (Dextrose 50% Inj) 50 ml IVP Q2H PRN PRN Reason: Other if Blood glucose <70 Docusate Sodium (Colace) 100 mg PO BID [facility] Last Admin: 06/18/18 08:20 Dose: 100 mg Ergocalciferol (Drisdol 50,000 Intl Units Cap) 1 cap PO FR [facility] Last Admin: 06/12/18 09:41 Dose: 1 cap Finasteride (Proscar) 5 mg PO DAILY [facility] Last Admin: 06/18/18 08:23 Dose: 5 mg Furosemide (Lasix) 40 mg PO Q12 [facility] Last Admin: 06/18/18 08:21 Dose: 40 mg Lidocaine (Lidoderm) 1 ea TD DAILY [facility] Last Admin: 06/18/18 08:22 Dose: 1 ea Multivitamins/Minerals (Therapeutic-M Tab) 1 tab PO DAILY [facility] Last Admin: 06/18/18 08:23 Dose: 1 tab Pantoprazole Sodium (Protonix Ec Tab) 40 mg PO DAILY [facility] Last Admin: 06/18/18 08:23 Dose: 40 mg Potassium Chloride (K-Dur 20 Meq Er Tab) 40 meq PO DAILY [facility] Last Admin: 06/18/18 08:21 Dose: 40 meq Spironolactone (Aldactone) 25 mg PO BID [facility] Last Admin: 06/18/18 08:20 Dose: 25 mg Tamsulosin HCl (Flomax) 0.4 mg PO DAILY [facility] Last Admin: 06/18/18 08:20 Dose: 0.4 mg - Labs Labs: 06/12/18 16:51 06/16/18 11:29 PT 18.8 Seconds (9.8-13.1) H 06/05/18 06:00 INR 1.7 06/05/18 06:00 APTT 37.0 Seconds (25.6-37.1) 06/05/18 06:00 - Constitutional Appears: No Acute Distress, Cachectic - Head Exam Head Exam: ATRAUMATIC, NORMOCEPHALIC - Eye Exam Eye Exam: EOMI, Normal appearance - ENT Exam ENT Exam: Mucous Membranes Moist, Normal Oropharynx - Neck Exam Neck Exam: Full ROM - Respiratory Exam Respiratory Exam: Clear to Ausculation Bilateral, NORMAL BREATHING PATTERN. absent: Rales, Rhonchi, Wheezes, Respiratory Distress - Cardiovascular Exam Cardiovascular Exam: REGULAR RHYTHM, +S1, +S2. absent: Murmur - GI/Abdominal Exam GI & Abdominal Exam: Distended, Soft, Normal Bowel Sounds. absent: Tenderness - Extremities Exam Extremities Exam: absent: Calf Tenderness, Pedal Edema, Tenderness - Neurological Exam Neurological Exam: Alert, Awake, Oriented x3 - Psychiatric Exam Psychiatric exam: Normal Affect, Normal Mood - Skin Skin Exam: Dry, Intact, Normal Color, Warm Assessment and Plan - Assessment and Plan (Free Text) Assessment: 87 yo male with history of Liver Cirrhosis, HTN, Thromboembolism (DVT/PE) and CAD (CABG/Stent) admitted because of generalized weakness and anorexia. Plan: Generalized Weakness/ Cachexia secondary to cirrhosis and ascites with anorexia goes into hypoglycemia on and off but asymptomatic D50% 50 ml inj BID hypoglycemia secondary to starvation not hypoglycemic today Monitor Glucose, Continue medications as ordered. 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 on 80mg of Lasix daily causing hypokalemia KDur 20mg PO daily repeat BMP today CAD asymptomatic History of Thromboembolism has IVC filter <Lillian Wright - Last Filed: 06/20/18 00:21> Objective - Vital Signs/Intake and Output Vital Signs (last 24 hours): Temp Pulse Resp BP Pulse Ox 97.9 F 70 20 92/60 L 96 06/19/18 17:00 06/19/18 17:00 06/19/18 17:00 06/19/18 20:32 06/19/18 17:00 - Medications Medications: Current Medications Acetaminophen (Tylenol 325mg Tab) 650 mg PO Q6 PRN PRN Reason: Pain, Mild (1-3) Last Admin: 06/19/18 13:29 Dose: 650 mg Al Hydrox/Mg Hydrox/Simethicone (Maalox Plus 30 Ml) 30 ml PO Q4 PRN PRN Reason: Indigestion / Heartburn Last Admin: 06/07/18 15:02 Dose: 30 ml Dextrose (Dextrose 50% Inj) 50 ml IVP Q2H PRN PRN Reason: Other if Blood glucose <70 Docusate Sodium (Colace) 100 mg PO BID [facility] Last Admin: 06/19/18 17:18 Dose: 100 mg Ergocalciferol (Drisdol 50,000 Intl Units Cap) 1 cap PO FR [facility] Last Admin: 06/19/18 08:46 Dose: 1 cap Finasteride (Proscar) 5 mg PO DAILY [facility] Last Admin: 06/19/18 08:46 Dose: 5 mg Furosemide (Lasix) 40 mg PO Q12 [facility] Last Admin: 06/19/18 20:32 Dose: Not Given Lidocaine (Lidoderm) 1 ea TD DAILY [facility] Last Admin: 06/19/18 08:46 Dose: 1 ea Multivitamins/Minerals (Therapeutic-M Tab) 1 tab PO DAILY [facility] Last Admin: 06/19/18 08:45 Dose: 1 tab Pantoprazole Sodium (Protonix Ec Tab) 40 mg PO DAILY [facility] Last Admin: 06/19/18 08:45 Dose: 40 mg Spironolactone (Aldactone) 25 mg PO BID [facility] Last Admin: 06/19/18 17:18 Dose: 25 mg Tamsulosin HCl (Flomax) 0.4 mg PO DAILY [facility] Last Admin: 06/19/18 08:46 Dose: 0.4 mg - Labs Labs: 06/12/18 16:51 06/19/18 06:10 PT 18.3 Seconds (9.8-13.1) H 06/18/18 12:44 INR 1.6 06/18/18 12:44 APTT 37.0 Seconds (25.6-37.1) 06/05/18 06:00 Attending/Attestation - Attestation I have personally seen and examined this patient.: Yes I have fully participated in the care of the patient.: Yes I have reviewed all pertinent clinical information, including history, physical exam and plan: Yes Notes (Text): 06/20/18 00:21 agree with findings and plan as above, continue current management
[2018-06-18 12:52] LABS: INR 1.6; PROTHROMBIN TIME 18.3 Seconds (9.8-13.1)
[2018-06-18 13:03] LABS: BLOOD UREA NITROGEN 16 mg/dl (9-20); CALCIUM 7.6 mg/dL (8.4-10.2); GFR NON-AFRICAN AMERICAN > 60
[2018-06-19 06:41] LABS: BLOOD UREA NITROGEN 16 mg/dl (9-20); CALCIUM 7.7 mg/dL (8.4-10.2); GFR NON-AFRICAN AMERICAN > 60
[2018-06-19] MEDS: Multivitamin With Minerals Tab PO SCH (08:45)
[2018-06-19] MEDS: Pantoprazole 40 mg EC Tab PO SCH (08:45)
[2018-06-19] MEDS: Lidocaine 5% Patch TD SCH (08:46)
[2018-06-19] MEDS: Ergocalciferol 50,000 Intl Units Cap PO SCH (08:46)
--- NOTE | 2018-06-19 15:14 | CP.PCM.PN ---
<Dom Culp - Last Filed: 06/19/18 15:14> Subjective - Date & Time of Evaluation Date of Evaluation: 06/19/18 Time of Evaluation: 09:50 - Subjective Subjective: Seen at bedside today. Denies pain. No acute events overnight. Look cachectic and chronically ill. Afebrile Objective - Vital Signs/Intake and Output Vital Signs (last 24 hours): Temp Pulse Resp BP Pulse Ox 97.7 F 93 H 18 105/66 100 06/19/18 08:36 06/19/18 08:36 06/19/18 08:36 06/19/18 08:45 06/19/18 08:36 - Medications Medications: Current Medications Acetaminophen (Tylenol 325mg Tab) 650 mg PO Q6 PRN PRN Reason: Pain, Mild (1-3) Last Admin: 06/19/18 13:29 Dose: 650 mg Al Hydrox/Mg Hydrox/Simethicone (Maalox Plus 30 Ml) 30 ml PO Q4 PRN PRN Reason: Indigestion / Heartburn Last Admin: 06/07/18 15:02 Dose: 30 ml Dextrose (Dextrose 50% Inj) 50 ml IVP Q2H PRN PRN Reason: Other if Blood glucose <70 Docusate Sodium (Colace) 100 mg PO BID [facility] Last Admin: 06/19/18 08:46 Dose: 100 mg Ergocalciferol (Drisdol 50,000 Intl Units Cap) 1 cap PO FR [facility] Last Admin: 06/19/18 08:46 Dose: 1 cap Finasteride (Proscar) 5 mg PO DAILY [facility] Last Admin: 06/19/18 08:46 Dose: 5 mg Furosemide (Lasix) 40 mg PO Q12 [facility] Last Admin: 06/19/18 08:45 Dose: 40 mg Lidocaine (Lidoderm) 1 ea TD DAILY [facility] Last Admin: 06/19/18 08:46 Dose: 1 ea Multivitamins/Minerals (Therapeutic-M Tab) 1 tab PO DAILY [facility] Last Admin: 06/19/18 08:45 Dose: 1 tab Pantoprazole Sodium (Protonix Ec Tab) 40 mg PO DAILY [facility] Last Admin: 06/19/18 08:45 Dose: 40 mg Spironolactone (Aldactone) 25 mg PO BID [facility] Last Admin: 06/19/18 08:45 Dose: 25 mg Tamsulosin HCl (Flomax) 0.4 mg PO DAILY [facility] Last Admin: 06/19/18 08:46 Dose: 0.4 mg - Labs Labs: 06/12/18 16:51 06/19/18 06:10 PT 18.3 Seconds (9.8-13.1) H 06/18/18 12:44 INR 1.6 06/18/18 12:44 APTT 37.0 Seconds (25.6-37.1) 06/05/18 06:00 - Constitutional Appears: Non-toxic, Confused, Cachectic, Chronically Ill - Eye Exam Eye Exam: PERRL - ENT Exam ENT Exam: Mucous Membranes Moist - Respiratory Exam Respiratory Exam: NORMAL BREATHING PATTERN. absent: Respiratory Distress - Cardiovascular Exam Cardiovascular Exam: +S1, +S2. absent: Gallop - GI/Abdominal Exam GI & Abdominal Exam: Soft, Normal Bowel Sounds. absent: Tenderness - Extremities Exam Extremities Exam: absent: Calf Tenderness, Pedal Edema - Neurological Exam Neurological Exam: Alert, Awake. absent: Oriented x3 - Skin Skin Exam: Pallor, Warm Assessment and Plan - Assessment and Plan (Free Text) Assessment: Assessment: 87 yo male with history of Liver Cirrhosis, HTN, Thromboembolism (DVT/PE) and CAD (CABG/Stent) admitted because of generalized weakness and anorexia. Generalized Weakness/ Cachexia BMI 14 secondary to cirrhosis and ascites with anorexia goes into hypoglycemia on and off but asymptomatic D50% 50 ml inj BID hypoglycemia secondary to starvation not hypoglycemic today Monitor Glucose, Continue medications as ordered. 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 on 80mg of Lasix daily KDur 20mg PO daily CAD asymptomatic History of Thromboembolism has IVC filter <Madan Paige D - Last Filed: 06/19/18 16:39> Objective - Vital Signs/Intake and Output Vital Signs (last 24 hours): Temp Pulse Resp BP Pulse Ox 97.9 F 70 20 101/68 96 06/19/18 16:14 06/19/18 16:14 06/19/18 16:14 06/19/18 16:14 06/19/18 16:14 - Medications Medications: Current Medications Acetaminophen (Tylenol 325mg Tab) 650 mg PO Q6 PRN PRN Reason: Pain, Mild (1-3) Last Admin: 06/19/18 13:29 Dose: 650 mg Al Hydrox/Mg Hydrox/Simethicone (Maalox Plus 30 Ml) 30 ml PO Q4 PRN PRN Reason: Indigestion / Heartburn Last Admin: 06/07/18 15:02 Dose: 30 ml Dextrose (Dextrose 50% Inj) 50 ml IVP Q2H PRN PRN Reason: Other if Blood glucose <70 Docusate Sodium (Colace) 100 mg PO BID [facility] Last Admin: 06/19/18 08:46 Dose: 100 mg Ergocalciferol (Drisdol 50,000 Intl Units Cap) 1 cap PO FR [facility] Last Admin: 06/19/18 08:46 Dose: 1 cap Finasteride (Proscar) 5 mg PO DAILY [facility] Last Admin: 06/19/18 08:46 Dose: 5 mg Furosemide (Lasix) 40 mg PO Q12 [facility] Last Admin: 06/19/18 08:45 Dose: 40 mg Lidocaine (Lidoderm) 1 ea TD DAILY [facility] Last Admin: 06/19/18 08:46 Dose: 1 ea Multivitamins/Minerals (Therapeutic-M Tab) 1 tab PO DAILY [facility] Last Admin: 06/19/18 08:45 Dose: 1 tab Pantoprazole Sodium (Protonix Ec Tab) 40 mg PO DAILY [facility] Last Admin: 06/19/18 08:45 Dose: 40 mg Spironolactone (Aldactone) 25 mg PO BID [facility] Last Admin: 06/19/18 08:45 Dose: 25 mg Tamsulosin HCl (Flomax) 0.4 mg PO DAILY [facility] Last Admin: 06/19/18 08:46 Dose: 0.4 mg - Labs Labs: 06/12/18 16:51 06/19/18 06:10 PT 18.3 Seconds (9.8-13.1) H 06/18/18 12:44 INR 1.6 06/18/18 12:44 APTT 37.0 Seconds (25.6-37.1) 06/05/18 06:00 Attending/Attestation - Attestation I have personally seen and examined this patient.: Yes I have fully participated in the care of the patient.: Yes I have reviewed all pertinent clinical information, including history, physical exam and plan: Yes Notes (Text): 06/19/18 16:39 Patient seen and examined with resident. Case discussed and agreed with assessment and plan of management.
[2018-06-20] MEDS: Dextrose 5%/Lactated Ringer's 1,000 ML IV SCH (05:43)
[2018-06-20] MEDS: Dextrose 50% SYRINGE Inj (50 ml) IVP PRN (07:21)
[2018-06-20] MEDS: Pantoprazole 40 mg EC Tab PO SCH (08:30)
[2018-06-20] MEDS: Multivitamin With Minerals Tab PO SCH (08:31)
[2018-06-20] MEDS: Lidocaine 5% Patch TD SCH (08:31)
--- NOTE | 2018-06-20 15:29 | CP.PCM.PN ---
Subjective - Date & Time of Evaluation Date of Evaluation: 06/20/18 Time of Evaluation: 11:00 - Subjective Subjective: Patient seen and examined. Denied any complaint. Objective - Vital Signs/Intake and Output Vital Signs (last 24 hours): Temp Pulse Resp BP Pulse Ox 97.3 F L 78 18 111/75 95 06/20/18 09:00 06/20/18 09:00 06/20/18 09:00 06/20/18 09:00 06/20/18 09:00 - Medications Medications: Current Medications Acetaminophen (Tylenol 325mg Tab) 650 mg PO Q6 PRN PRN Reason: Pain, Mild (1-3) Last Admin: 06/19/18 13:29 Dose: 650 mg Al Hydrox/Mg Hydrox/Simethicone (Maalox Plus 30 Ml) 30 ml PO Q4 PRN PRN Reason: Indigestion / Heartburn Last Admin: 06/07/18 15:02 Dose: 30 ml Dextrose (Dextrose 50% Inj) 50 ml IVP Q2H PRN PRN Reason: Other if Blood glucose <70 Last Admin: 06/20/18 07:21 Dose: 50 ml Docusate Sodium (Colace) 100 mg PO BID [facility] Last Admin: 06/20/18 08:30 Dose: 100 mg Ergocalciferol (Drisdol 50,000 Intl Units Cap) 1 cap PO FR [facility] Last Admin: 06/19/18 08:46 Dose: 1 cap Finasteride (Proscar) 5 mg PO DAILY [facility] Last Admin: 06/20/18 08:30 Dose: 5 mg Furosemide (Lasix) 40 mg PO Q12 [facility] Last Admin: 06/20/18 08:30 Dose: 40 mg Dextrose/Lactated Ringer's (Dextrose 5%/Lactated Ringer's) 1,000 mls @ 42 mls/hr IV .[id number] [facility] Stop: 06/21/18 05:32 Last Admin: 06/20/18 05:43 Dose: 42 mls/hr Lidocaine (Lidoderm) 1 ea TD DAILY [facility] Last Admin: 06/20/18 08:31 Dose: 1 ea Multivitamins/Minerals (Therapeutic-M Tab) 1 tab PO DAILY [facility] Last Admin: 06/20/18 08:31 Dose: 1 tab Pantoprazole Sodium (Protonix Ec Tab) 40 mg PO DAILY [facility] Last Admin: 06/20/18 08:30 Dose: 40 mg Spironolactone (Aldactone) 25 mg PO BID [facility] Last Admin: 06/20/18 08:30 Dose: 25 mg Tamsulosin HCl (Flomax) 0.4 mg PO DAILY [facility] Last Admin: 06/20/18 08:30 Dose: 0.4 mg - Labs Labs: 06/12/18 16:51 06/19/18 06:10 PT 18.3 Seconds (9.8-13.1) H 06/18/18 12:44 INR 1.6 06/18/18 12:44 APTT 37.0 Seconds (25.6-37.1) 06/05/18 06:00 - Constitutional Appears: No Acute Distress - Head Exam Head Exam: ATRAUMATIC - Eye Exam Eye Exam: absent: Scleral icterus - ENT Exam ENT Exam: Mucous Membranes Moist - Neck Exam Neck Exam: absent: Meningismus - Respiratory Exam Respiratory Exam: absent: Rales, Rhonchi, Wheezes, Respiratory Distress - Cardiovascular Exam Cardiovascular Exam: REGULAR RHYTHM, +S1, +S2 - GI/Abdominal Exam GI & Abdominal Exam: Soft. absent: Tenderness - Rectal Exam Rectal Exam: absent: Deferred - Extremities Exam Extremities Exam: Pedal Edema - Neurological Exam Neurological Exam: Awake - Psychiatric Exam Psychiatric exam: Flat Affect - Skin Skin Exam: Dry, Intact Assessment and Plan - Assessment and Plan (Free Text) Assessment: 87 yo male with history of Liver Cirrhosis, HTN, Thromboembolism (DVT/PE) and CAD (CABG/Stent) admitted because of generalized weakness and anorexia. 1. Weakness secondary to cirrhosis and ascites with anorexia no episode of hypoglycemia hypoglycemia secondary to starvation 2. UTI resolved urine culture grew E coli completed 6 day course of IV Rocephin 3. 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 CAD asymptomatic 5. History of Thromboembolism has IVC filter
[2018-06-21] MEDS: Dextrose 5%/Lactated Ringer's 1,000 ML IV SCH ×2 (05:19→06:52)
[2018-06-21] MEDS: Multivitamin With Minerals Tab PO SCH (08:52)
[2018-06-21] MEDS: Pantoprazole 40 mg EC Tab PO SCH (08:53)
[2018-06-21] MEDS: Lidocaine 5% Patch TD SCH (08:53)
--- NOTE | 2018-06-21 18:47 | CP.PCM.PN ---
Subjective - Date & Time of Evaluation Date of Evaluation: 06/21/18 Time of Evaluation: 10:00 - Subjective Subjective: Patient seen and examined. Sleeping most of the time. Objective - Vital Signs/Intake and Output Vital Signs (last 24 hours): Temp Pulse Resp BP Pulse Ox 97.9 F 63 20 128/83 95 06/21/18 17:00 06/21/18 17:00 06/21/18 17:00 06/21/18 17:00 06/21/18 17:00 - Medications Medications: Current Medications Acetaminophen (Tylenol 325mg Tab) 650 mg PO Q6 PRN PRN Reason: Pain, Mild (1-3) Last Admin: 06/21/18 16:12 Dose: 650 mg Al Hydrox/Mg Hydrox/Simethicone (Maalox Plus 30 Ml) 30 ml PO Q4 PRN PRN Reason: Indigestion / Heartburn Last Admin: 06/07/18 15:02 Dose: 30 ml Dextrose (Dextrose 50% Inj) 50 ml IVP Q2H PRN PRN Reason: Other if Blood glucose <70 Last Admin: 06/20/18 07:21 Dose: 50 ml Docusate Sodium (Colace) 100 mg PO BID [facility] Last Admin: 06/21/18 17:03 Dose: Not Given Ergocalciferol (Drisdol 50,000 Intl Units Cap) 1 cap PO FR [facility] Last Admin: 06/19/18 08:46 Dose: 1 cap Finasteride (Proscar) 5 mg PO DAILY [facility] Last Admin: 06/21/18 08:52 Dose: 5 mg Furosemide (Lasix) 40 mg PO Q12 [facility] Last Admin: 06/21/18 08:53 Dose: 40 mg Lidocaine (Lidoderm) 1 ea TD DAILY [facility] Last Admin: 06/21/18 08:53 Dose: 1 ea Multivitamins/Minerals (Therapeutic-M Tab) 1 tab PO DAILY [facility] Last Admin: 06/21/18 08:52 Dose: 1 tab Pantoprazole Sodium (Protonix Ec Tab) 40 mg PO DAILY [facility] Last Admin: 06/21/18 08:53 Dose: 40 mg Spironolactone (Aldactone) 25 mg PO BID [facility] Last Admin: 06/21/18 17:03 Dose: Not Given Tamsulosin HCl (Flomax) 0.4 mg PO DAILY [facility] Last Admin: 06/21/18 08:52 Dose: 0.4 mg - Labs Labs: 06/12/18 16:51 06/19/18 06:10 PT 18.3 Seconds (9.8-13.1) H 06/18/18 12:44 INR 1.6 06/18/18 12:44 APTT 37.0 Seconds (25.6-37.1) 06/05/18 06:00 - Constitutional Appears: No Acute Distress - Head Exam Head Exam: ATRAUMATIC - Eye Exam Eye Exam: absent: Scleral icterus - ENT Exam ENT Exam: Mucous Membranes Moist - Neck Exam Neck Exam: absent: Meningismus - Respiratory Exam Respiratory Exam: absent: Rales, Rhonchi, Wheezes, Respiratory Distress - Cardiovascular Exam Cardiovascular Exam: REGULAR RHYTHM, +S1, +S2 - GI/Abdominal Exam GI & Abdominal Exam: Soft. absent: Tenderness - Rectal Exam Rectal Exam: Deferred - Extremities Exam Extremities Exam: Pedal Edema - Neurological Exam Neurological Exam: Awake - Psychiatric Exam Psychiatric exam: Flat Affect - Skin Skin Exam: Dry, Intact Assessment and Plan - Assessment and Plan (Free Text) Assessment: 87 yo male with history of Liver Cirrhosis, HTN, Thromboembolism (DVT/PE) and CAD (CABG/Stent) admitted because of generalized weakness and anorexia. 1. Weakness secondary to cirrhosis and ascites with anorexia goes into hypoglycemia on and off but asymptomatic hypoglycemia secondary to starvation no hypoglycemic event today 2. UTI resolved urine culture grew E coli completed 6 day course of IV Rocephin 3. 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 CAD asymptomatic 5. History of Thromboembolism has IVC filter
[2018-06-22] MEDS: Dextrose 50% SYRINGE Inj (50 ml) IVP PRN (06:57)
[2018-06-22] MEDS: Lidocaine 5% Patch TD SCH (09:20)
[2018-06-22] MEDS: Pantoprazole 40 mg EC Tab PO SCH (09:21)
[2018-06-22] MEDS: Multivitamin With Minerals Tab PO SCH (09:22)
--- NOTE | 2018-06-22 15:17 | CP.PCM.PN ---
<Dom Culp - Last Filed: 06/22/18 15:18> Subjective - Date & Time of Evaluation Date of Evaluation: 06/22/18 Time of Evaluation: 09:25 - Subjective Subjective: Seen at bedside today. Denies pain. No acute events overnight. Look cachectic and chronically ill. Afebrile Objective - Vital Signs/Intake and Output Vital Signs (last 24 hours): Temp Pulse Resp BP Pulse Ox 97.5 F L 88 20 97/60 L 98 06/22/18 08:11 06/22/18 08:11 06/22/18 08:11 06/22/18 09:32 06/22/18 08:11 - Medications Medications: Current Medications Acetaminophen (Tylenol 325mg Tab) 650 mg PO Q6 PRN PRN Reason: Pain, Mild (1-3) Last Admin: 06/22/18 09:26 Dose: 650 mg Al Hydrox/Mg Hydrox/Simethicone (Maalox Plus 30 Ml) 30 ml PO Q4 PRN PRN Reason: Indigestion / Heartburn Last Admin: 06/07/18 15:02 Dose: 30 ml Dextrose (Dextrose 50% Inj) 50 ml IVP Q2H PRN PRN Reason: Other if Blood glucose <70 Last Admin: 06/22/18 06:57 Dose: 50 ml Docusate Sodium (Colace) 100 mg PO BID [facility] Last Admin: 06/22/18 09:19 Dose: 100 mg Ergocalciferol (Drisdol 50,000 Intl Units Cap) 1 cap PO FR [facility] Last Admin: 06/19/18 08:46 Dose: 1 cap Finasteride (Proscar) 5 mg PO DAILY [facility] Last Admin: 06/22/18 09:21 Dose: 5 mg Furosemide (Lasix) 40 mg PO Q12 [facility] Last Admin: 06/22/18 09:32 Dose: Not Given Lidocaine (Lidoderm) 1 ea TD DAILY [facility] Last Admin: 06/22/18 09:20 Dose: 1 ea Multivitamins/Minerals (Therapeutic-M Tab) 1 tab PO DAILY [facility] Last Admin: 06/22/18 09:22 Dose: 1 tab Pantoprazole Sodium (Protonix Ec Tab) 40 mg PO DAILY [facility] Last Admin: 06/22/18 09:21 Dose: 40 mg Spironolactone (Aldactone) 25 mg PO BID [facility] Last Admin: 06/22/18 09:19 Dose: 25 mg Tamsulosin HCl (Flomax) 0.4 mg PO DAILY [facility] Last Admin: 06/22/18 09:19 Dose: 0.4 mg - Labs Labs: 06/12/18 16:51 06/19/18 06:10 PT 18.3 Seconds (9.8-13.1) H 06/18/18 12:44 INR 1.6 06/18/18 12:44 APTT 37.0 Seconds (25.6-37.1) 06/05/18 06:00 - Constitutional Appears: Cachectic, Chronically Ill - Eye Exam Eye Exam: EOMI, PERRL - ENT Exam ENT Exam: Mucous Membranes Moist - Respiratory Exam Respiratory Exam: NORMAL BREATHING PATTERN. absent: Respiratory Distress - Cardiovascular Exam Cardiovascular Exam: +S1, +S2. absent: Gallop - GI/Abdominal Exam GI & Abdominal Exam: Soft, Normal Bowel Sounds - Neurological Exam Neurological Exam: Alert, Awake. absent: Oriented x3 - Skin Skin Exam: Pallor, Warm Assessment and Plan - Assessment and Plan (Free Text) Plan: 87 yo male with history of Liver Cirrhosis, HTN, Thromboembolism (DVT/PE) and CAD (CABG/Stent) admitted because of generalized weakness and anorexia. Generalized Weakness/ Cachexia BMI 14 secondary to cirrhosis and ascites with anorexia goes into hypoglycemia on and off but asymptomatic D50% 50 ml inj BID hypoglycemia secondary to starvation Monitor Glucose, Continue medications as ordered. 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 on 40mg of Lasix BID Aldactone CAD asymptomatic History of Thromboembolism has IVC filter <Lillian Wright - Last Filed: 06/22/18 16:22> Objective - Vital Signs/Intake and Output Vital Signs (last 24 hours): Temp Pulse Resp BP Pulse Ox 97.6 F 60 20 110/73 100 06/22/18 16:00 06/22/18 16:00 06/22/18 16:00 06/22/18 16:00 06/22/18 16:00 - Medications Medications: Current Medications Acetaminophen (Tylenol 325mg Tab) 650 mg PO Q6 PRN PRN Reason: Pain, Mild (1-3) Last Admin: 06/22/18 09:26 Dose: 650 mg Al Hydrox/Mg Hydrox/Simethicone (Maalox Plus 30 Ml) 30 ml PO Q4 PRN PRN Reason: Indigestion / Heartburn Last Admin: 06/07/18 15:02 Dose: 30 ml Dextrose (Dextrose 50% Inj) 50 ml IVP Q2H PRN PRN Reason: Other if Blood glucose <70 Last Admin: 06/22/18 06:57 Dose: 50 ml Docusate Sodium (Colace) 100 mg PO BID [facility] Last Admin: 06/22/18 16:11 Dose: 100 mg Ergocalciferol (Drisdol 50,000 Intl Units Cap) 1 cap PO FR [facility] Last Admin: 06/19/18 08:46 Dose: 1 cap Finasteride (Proscar) 5 mg PO DAILY [facility] Last Admin: 06/22/18 09:21 Dose: 5 mg Furosemide (Lasix) 40 mg PO Q12 [facility] Last Admin: 06/22/18 09:32 Dose: Not Given Lidocaine (Lidoderm) 1 ea TD DAILY [facility] Last Admin: 06/22/18 09:20 Dose: 1 ea Multivitamins/Minerals (Therapeutic-M Tab) 1 tab PO DAILY [facility] Last Admin: 06/22/18 09:22 Dose: 1 tab Pantoprazole Sodium (Protonix Ec Tab) 40 mg PO DAILY [facility] Last Admin: 06/22/18 09:21 Dose: 40 mg Spironolactone (Aldactone) 25 mg PO BID [facility] Last Admin: 06/22/18 16:11 Dose: 25 mg Tamsulosin HCl (Flomax) 0.4 mg PO DAILY [facility] Last Admin: 06/22/18 09:19 Dose: 0.4 mg - Labs Labs: 06/12/18 16:51 06/19/18 06:10 PT 18.3 Seconds (9.8-13.1) H 06/18/18 12:44 INR 1.6 06/18/18 12:44 APTT 37.0 Seconds (25.6-37.1) 06/05/18 06:00 Attending/Attestation - Attestation I have personally seen and examined this patient.: Yes I have fully participated in the care of the patient.: Yes I have reviewed all pertinent clinical information, including history, physical exam and plan: Yes Notes (Text): 06/22/18 16:22 agree with findings and plan as above
--- NOTE | 2018-06-22 18:44 | CP.PCM.PCO ---
Addendum Addendum: Called by nurse because pt and family wants to discuss about Code status Patient and family states that they change their mind about resuscitation status and they wants Full code. Order changed in chart
[2018-06-23] MEDS: Lidocaine 5% Patch TD SCH (08:33)
[2018-06-23] MEDS: Multivitamin With Minerals Tab PO SCH (08:33)
[2018-06-23] MEDS: Pantoprazole 40 mg EC Tab PO SCH (08:33)
[2018-06-23 09:35] LABS: BASO % 0.1 % (0.0-2.0); EOS % 0.3 % (0.0-4.0); LYMPH % 21.9 % (20.0-40.0); MEAN CELL VOLUME 86.1 fl (80.0-94.0); MEAN CORPUSCULAR HEMOGLOBIN 26.8 pg (27.0-31.0); MEAN CORPUSCULAR HGB CONC 31.2 g/dL (33.0-37.0); MEAN PLATELET VOLUME 9.4 fl (7.2-11.7); MONO # 0.3 K/uL (0.0-0.8); MONO % 7.1 % (0.0-10.0); NEUT # 3.2 K/uL (1.8-7.0); NEUT % 70.6 % (50.0-75.0); NRBC % 0.1 % (0.0-0.0); RBC 2.88 Mil/uL (4.40-5.90); RED CELL DISTRIBUTION WIDTH 18.9 % (11.5-14.5); WHITE BLOOD COUNT 4.6 K/uL (4.8-10.8)
[2018-06-23 09:39] LABS: HEMOGLOBIN 7.7 g/dL (12.0-18.0)
[2018-06-23 09:43] LABS: ALB/GLOB RATIO 0.7 (1.0-2.1); ALT/SGPT 133 U/L (21-72); AST/SGOT 71 U/L (17-59); BLOOD UREA NITROGEN 20 mg/dl (9-20); CALCIUM 7.5 mg/dL (8.4-10.2); GFR NON-AFRICAN AMERICAN > 60
[2018-06-23] MEDS ORDERED: Dextrose 5%/Lactated Ringer's 1,000 ML IV SCH (11:45)
--- NOTE | 2018-06-23 12:12 | CP.PCM.PN ---
Subjective - Date & Time of Evaluation Date of Evaluation: 06/23/18 Time of Evaluation: 08:00 - Subjective Subjective: Patient seen and examined at bedside. Reports he had 4 bowel movements overnight. Appetite remains poor but is tolerating PO diet. Reports some discomfort in the sacral area. Denies chest pain, SOB, weakness or dizziness. Objective - Vital Signs/Intake and Output Vital Signs (last 24 hours): Temp Pulse Resp BP Pulse Ox 98.1 F 105 H 20 95/64 L 97 06/23/18 08:05 06/23/18 08:05 06/23/18 08:05 06/23/18 08:33 06/22/18 23:36 - Medications Medications: Current Medications Acetaminophen (Tylenol 325mg Tab) 650 mg PO Q6 PRN PRN Reason: Pain, Mild (1-3) Last Admin: 06/22/18 16:53 Dose: 650 mg Al Hydrox/Mg Hydrox/Simethicone (Maalox Plus 30 Ml) 30 ml PO Q4 PRN PRN Reason: Indigestion / Heartburn Last Admin: 06/07/18 15:02 Dose: 30 ml Dextrose (Dextrose 50% Inj) 50 ml IVP Q2H PRN PRN Reason: Other if Blood glucose <70 Last Admin: 06/22/18 06:57 Dose: 50 ml Docusate Sodium (Colace) 100 mg PO BID [facility] Last Admin: 06/23/18 08:32 Dose: 100 mg Ergocalciferol (Drisdol 50,000 Intl Units Cap) 1 cap PO FR [facility] Last Admin: 06/19/18 08:46 Dose: 1 cap Finasteride (Proscar) 5 mg PO DAILY [facility] Last Admin: 06/23/18 08:33 Dose: 5 mg Furosemide (Lasix) 40 mg PO Q12 [facility] Last Admin: 06/23/18 08:33 Dose: Not Given Dextrose/Lactated Ringer's (Dextrose 5%/Lactated Ringer's) 1,000 mls @ 40 mls/ hr IV .Q24H [facility] Stop: 06/24/18 11:42 Last Admin: 06/23/18 11:58 Dose: 40 mls/hr Lidocaine (Lidoderm) 1 ea TD DAILY [facility] Last Admin: 06/23/18 08:33 Dose: 1 ea Metronidazole (Flagyl) 500 mg PO Q8 [facility]; Protocol Last Admin: 06/23/18 09:41 Dose: 500 mg Multivitamins/Minerals (Therapeutic-M Tab) 1 tab PO DAILY [facility] Last Admin: 06/23/18 08:33 Dose: 1 tab Pantoprazole Sodium (Protonix Ec Tab) 40 mg PO DAILY [facility] Last Admin: 06/23/18 08:33 Dose: 40 mg Spironolactone (Aldactone) 25 mg PO BID [facility] Last Admin: 06/23/18 08:33 Dose: 25 mg Tamsulosin HCl (Flomax) 0.4 mg PO DAILY [facility] Last Admin: 06/23/18 08:32 Dose: 0.4 mg - Labs Labs: 06/23/18 08:53 06/23/18 08:53 PT 18.3 Seconds (9.8-13.1) H 06/18/18 12:44 INR 1.6 06/18/18 12:44 APTT 37.0 Seconds (25.6-37.1) 06/05/18 06:00 - Constitutional Appears: No Acute Distress, Cachectic, Chronically Ill - Head Exam Head Exam: ATRAUMATIC - Eye Exam Eye Exam: EOMI - ENT Exam ENT Exam: Mucous Membranes Moist - Neck Exam Neck Exam: absent: Lymphadenopathy - Respiratory Exam Respiratory Exam: NORMAL BREATHING PATTERN. absent: Rhonchi, Wheezes - Cardiovascular Exam Cardiovascular Exam: +S1, +S2. absent: Murmur - GI/Abdominal Exam GI & Abdominal Exam: Soft, Normal Bowel Sounds. absent: Tenderness - Extremities Exam Extremities Exam: absent: Calf Tenderness, Pedal Edema - Neurological Exam Neurological Exam: Alert, Awake Additional comments: oriented to self and place - Psychiatric Exam Psychiatric exam: Normal Affect, Normal Mood - Skin Skin Exam: Dry, Intact. absent: Rash Assessment and Plan - Assessment and Plan (Free Text) Assessment: 87 yr old M admitted for failure to thrive, generalized weakness and anorexia with PMHx including Liver Cirrhosis, HTN, thromboembolism (DVT/PE), CAD s/p CABG/stent. 1. C. diff -C diff Ag positive -contact isolation -Flagyl 500mg PO Q8 (Day 1) 2. Anemia -acute on chronic, asymptomatic -Hgb 7.7; was 9.7 on 06/12 -type and screen ordered -f/u FOBT -f/u CBC next AM -consider blood transfusion pending repeat CBC 3. Generalized Weakness/ Cachexia -BMI 14 -secondary to cirrhosis and ascites with anorexia -intermittent episodes of asymptomatic hypoglycemia -hypoglycemia secondary to starvation -Monitor Glucose, Continue medications as ordered -D5 LR at 40 mls/hr 4. Liver Cirrhosis -not alcohol related per history -on 40mg of Lasix BID -Aldactone 25mg PO BID 5. CAD s/p CABG, stent -asymptomatic 6. 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
[2018-06-24 06:30] LABS: BASO % 0.1 % (0.0-2.0); EOS % 0.6 % (0.0-4.0); HEMOGLOBIN 6.8 g/dL (12.0-18.0); LYMPH % 23.4 % (20.0-40.0); MEAN CELL VOLUME 83.8 fl (80.0-94.0); MEAN CORPUSCULAR HEMOGLOBIN 27.2 pg (27.0-31.0); MEAN CORPUSCULAR HGB CONC 32.4 g/dL (33.0-37.0); MEAN PLATELET VOLUME 9.3 fl (7.2-11.7); MONO # 0.3 K/uL (0.0-0.8); MONO % 6.6 % (0.0-10.0); NEUT # 2.8 K/uL (1.8-7.0); NEUT % 69.3 % (50.0-75.0); NRBC % 0.1 % (0.0-0.0); RBC 2.51 Mil/uL (4.40-5.90); RED CELL DISTRIBUTION WIDTH 19.1 % (11.5-14.5); WHITE BLOOD COUNT 4.1 K/uL (4.8-10.8)
[2018-06-24] MEDS: Multivitamin With Minerals Tab PO SCH (09:24)
[2018-06-24] MEDS: Pantoprazole 40 mg EC Tab PO SCH (09:24)
[2018-06-24] MEDS: Lidocaine 5% Patch TD SCH (09:25)
--- NOTE | 2018-06-24 15:14 | CP.PCM.PN ---
Subjective - Date & Time of Evaluation Date of Evaluation: 06/24/18 Time of Evaluation: 08:00 - Subjective Subjective: Patient seen and examined at bedside, in no acute distress. No acute events overnight. Awake, alert, cachectic and looks chronically ill. Reports weakness and chronic left elbow pain. Tolerating PO diet. Denies chest pain or shortness of breath. Objective - Vital Signs/Intake and Output Vital Signs (last 24 hours): Temp Pulse Resp BP Pulse Ox 98.5 F 103 H 20 108/71 94 L 06/24/18 15:09 06/24/18 15:09 06/24/18 15:09 06/24/18 15:09 06/23/18 23:32 Intake and Output: 06/24/18 06/24/18 06:59 18:59 Intake Total 365 Balance 365 - Medications Medications: Current Medications Acetaminophen (Tylenol 325mg Tab) 650 mg PO Q6 PRN PRN Reason: Pain, Mild (1-3) Last Admin: 06/22/18 16:53 Dose: 650 mg Al Hydrox/Mg Hydrox/Simethicone (Maalox Plus 30 Ml) 30 ml PO Q4 PRN PRN Reason: Indigestion / Heartburn Last Admin: 06/07/18 15:02 Dose: 30 ml Dextrose (Dextrose 50% Inj) 50 ml IVP Q2H PRN PRN Reason: Other if Blood glucose <70 Last Admin: 06/22/18 06:57 Dose: 50 ml Docusate Sodium (Colace) 100 mg PO BID [facility] Last Admin: 06/24/18 10:44 Dose: Not Given Ergocalciferol (Drisdol 50,000 Intl Units Cap) 1 cap PO FR [facility] Last Admin: 06/19/18 08:46 Dose: 1 cap Finasteride (Proscar) 5 mg PO DAILY [facility] Last Admin: 06/24/18 09:24 Dose: 5 mg Furosemide (Lasix) 40 mg PO Q12 [facility] Last Admin: 06/24/18 09:24 Dose: 40 mg Lidocaine (Lidoderm) 1 ea TD DAILY [facility] Last Admin: 06/24/18 09:25 Dose: 1 ea Metronidazole (Flagyl) 500 mg PO Q8 [facility]; Protocol Last Admin: 06/24/18 09:23 Dose: 500 mg Multivitamins/Minerals (Therapeutic-M Tab) 1 tab PO DAILY [facility] Last Admin: 06/24/18 09:24 Dose: 1 tab Pantoprazole Sodium (Protonix Ec Tab) 40 mg PO DAILY [facility] Last Admin: 06/24/18 09:24 Dose: 40 mg Spironolactone (Aldactone) 25 mg PO BID [facility] Last Admin: 06/24/18 09:24 Dose: 25 mg Tamsulosin HCl (Flomax) 0.4 mg PO DAILY [facility] Last Admin: 06/24/18 09:24 Dose: 0.4 mg - Labs Labs: 06/24/18 06:19 06/23/18 08:53 PT 18.3 Seconds (9.8-13.1) H 06/18/18 12:44 INR 1.6 06/18/18 12:44 APTT 37.0 Seconds (25.6-37.1) 06/05/18 06:00 - Constitutional Appears: No Acute Distress, Cachectic, Chronically Ill - Head Exam Head Exam: ATRAUMATIC - Eye Exam Eye Exam: EOMI - Respiratory Exam Respiratory Exam: NORMAL BREATHING PATTERN - Cardiovascular Exam Cardiovascular Exam: +S1, +S2. absent: Gallop - GI/Abdominal Exam GI & Abdominal Exam: Distended (mild), Normal Bowel Sounds. absent: Tenderness - Extremities Exam Extremities Exam: absent: Calf Tenderness, Pedal Edema - Neurological Exam Neurological Exam: Alert, Awake - Psychiatric Exam Psychiatric exam: Normal Affect, Normal Mood - Skin Skin Exam: Dry, Warm Assessment and Plan - Assessment and Plan (Free Text) Assessment: 87 yr old M admitted for failure to thrive, generalized weakness and anorexia with PMHx including Liver Cirrhosis, HTN, thromboembolism (DVT/PE), CAD s/p CABG/stent. 1. C. diff -C diff Ag positive -contact isolation -Flagyl 500mg PO Q8 (Day 2) 2. Anemia -acute on chronic -Hgb 6.8 today; was 7.7 yesterday; was 9.7 on 06/12 -2 units pRBC's ordered and type and screen ordered -FOBT negative on 06/23/18 -f/u CBC next AM 3. Generalized Weakness/ Cachexia -BMI 14 -secondary to cirrhosis and ascites with anorexia and acute on chronic anemia -intermittent episodes of asymptomatic hypoglycemia -hypoglycemia secondary to starvation -Monitor Glucose, Continue medications as ordered -D5 LR at 40 mls/hr 4. Liver Cirrhosis -not alcohol related per history -on 40mg of Lasix BID -Aldactone 25mg PO BID 5. CAD s/p CABG, stent -asymptomatic 6. 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
[2018-06-24 16:41] VITALS: O2SAT 100
[2018-06-24] MEDS ORDERED: Dextrose 5%/Lactated Ringer's 1,000 ML IV SCH (19:15)
[2018-06-24 21:48] LABS: HEMOGLOBIN 11.1 g/dL (12.0-18.0); MEAN CORPUSCULAR HEMOGLOBIN 29.2 pg (27.0-31.0); MEAN CORPUSCULAR HGB CONC 33.6 g/dL (33.0-37.0); RBC 3.82 Mil/uL (4.40-5.90); RED CELL DISTRIBUTION WIDTH 17.4 % (11.5-14.5); WHITE BLOOD COUNT 4.9 K/uL (4.8-10.8)
[2018-06-25 06:39] LABS: BASO % 0.2 % (0.0-2.0); EOS % 0.1 % (0.0-4.0); HEMOGLOBIN 11.8 g/dL (12.0-18.0); LYMPH # 1.3 K/uL (1.0-4.3); LYMPH % 26.9 % (20.0-40.0); MEAN CELL VOLUME 89.8 fl (80.0-94.0); MEAN CORPUSCULAR HEMOGLOBIN 29.1 pg (27.0-31.0); MEAN CORPUSCULAR HGB CONC 32.4 g/dL (33.0-37.0); MEAN PLATELET VOLUME 9.3 fl (7.2-11.7); MONO # 0.4 K/uL (0.0-0.8); NEUT % 63.8 % (50.0-75.0); NRBC % 0.2 % (0.0-0.0); RBC 4.07 Mil/uL (4.40-5.90); RED CELL DISTRIBUTION WIDTH 17.4 % (11.5-14.5); WHITE BLOOD COUNT 4.7 K/uL (4.8-10.8)
[2018-06-25] MEDS: Pantoprazole 40 mg EC Tab PO SCH (09:53)
[2018-06-25] MEDS: Multivitamin With Minerals Tab PO SCH (09:53)
[2018-06-25] MEDS: Lidocaine 5% Patch TD SCH (09:55)
--- NOTE | 2018-06-25 13:31 | CP.PCM.PN ---
Subjective - Date & Time of Evaluation Date of Evaluation: 06/25/18 - Subjective Subjective: F/U generalized weakness. no AD, N/C, no abdominal pain, eating well as per Pt's family at bedside Objective - Vital Signs/Intake and Output Vital Signs (last 24 hours): Temp Pulse Resp BP Pulse Ox 97.5 F L 98 H 20 102/67 100 06/25/18 08:58 06/25/18 08:58 06/25/18 08:58 06/25/18 09:51 06/25/18 08:58 - Medications Medications: Current Medications Acetaminophen (Tylenol 325mg Tab) 650 mg PO Q6 PRN PRN Reason: Pain, Mild (1-3) Last Admin: 06/22/18 16:53 Dose: 650 mg Al Hydrox/Mg Hydrox/Simethicone (Maalox Plus 30 Ml) 30 ml PO Q4 PRN PRN Reason: Indigestion / Heartburn Last Admin: 06/07/18 15:02 Dose: 30 ml Dextrose (Dextrose 50% Inj) 50 ml IVP Q2H PRN PRN Reason: Other if Blood glucose <70 Last Admin: 06/22/18 06:57 Dose: 50 ml Docusate Sodium (Colace) 100 mg PO BID [facility] Last Admin: 06/25/18 09:54 Dose: 100 mg Ergocalciferol (Drisdol 50,000 Intl Units Cap) 1 cap PO FR [facility] Last Admin: 06/19/18 08:46 Dose: 1 cap Finasteride (Proscar) 5 mg PO DAILY [facility] Last Admin: 06/25/18 09:53 Dose: 5 mg Furosemide (Lasix) 40 mg PO Q12 [facility] Last Admin: 06/25/18 09:51 Dose: 40 mg Dextrose/Lactated Ringer's (Dextrose 5%/Lactated Ringer's) 1,000 mls @ 40 mls/hr IV .Q24H [facility] Stop: 06/25/18 19:10 Lidocaine (Lidoderm) 1 ea TD DAILY [facility] Last Admin: 06/25/18 09:55 Dose: 1 ea Metronidazole (Flagyl) 500 mg PO Q8 [facility]; Protocol Last Admin: 06/25/18 09:53 Dose: 500 mg Multivitamins/Minerals (Therapeutic-M Tab) 1 tab PO DAILY [facility] Last Admin: 06/25/18 09:53 Dose: 1 tab Pantoprazole Sodium (Protonix Ec Tab) 40 mg PO DAILY [facility] Last Admin: 06/25/18 09:53 Dose: 40 mg Spironolactone (Aldactone) 25 mg PO BID [facility] Last Admin: 06/25/18 09:54 Dose: 25 mg Tamsulosin HCl (Flomax) 0.4 mg PO DAILY [facility] Last Admin: 06/25/18 09:52 Dose: 0.4 mg - Labs Labs: 06/25/18 05:45 06/23/18 08:53 PT 18.3 Seconds (9.8-13.1) H 06/18/18 12:44 INR 1.6 06/18/18 12:44 APTT 37.0 Seconds (25.6-37.1) 06/05/18 06:00 - Constitutional Appears: No Acute Distress, Cachectic - Head Exam Head Exam: NORMAL INSPECTION - Eye Exam Eye Exam: PERRL - ENT Exam ENT Exam: Normal Exam - Neck Exam Neck Exam: Normal Inspection - Respiratory Exam Respiratory Exam: NORMAL BREATHING PATTERN - Cardiovascular Exam Cardiovascular Exam: REGULAR RHYTHM - GI/Abdominal Exam GI & Abdominal Exam: Distended (mild), Soft, Normal Bowel Sounds Additional comments: ascites - Extremities Exam Additional comments: Edema R arm, L/E - Back Exam Additional comments: Pressure ulcer stage 2 on sacrum, b/l. - Neurological Exam Neurological Exam: Awake, Oriented x3 Additional comments: Generalized weakness, no focal motor/sensory deficit - Psychiatric Exam Additional comments: Calm - Skin Skin Exam: Warm Assessment and Plan (1) Generalized weakness Status: Acute (2) E. coli UTI Status: Acute (3) Liver cirrhosis, alcoholic Status: Chronic (4) Lack of appetite Status: Acute (5) Weight loss Status: Acute (6) Ascites Status: Acute (7) Diarrhea Assessment & Plan: C Diff Ag positive Status: Acute (8) Pleural effusion, bilateral Status: Acute (9) CAD (coronary artery disease) Status: Chronic (10) Hx of deep venous thrombosis Status: Chronic (11) Hx pulmonary embolism Status: Chronic (12) HLD (hyperlipidemia) Status: Chronic (13) HTN (hypertension) Status: Chronic (14) Hx of CABG Status: Chronic - Assessment and Plan (Free Text) Plan: continue Spirolactone, Lasix and rest of the treatment
[2018-06-26 00:53] VITALS: RESP 18
[2018-06-26 08:15] VITALS: BP 99/65; PULSE 92; TEMP 97.5
[2018-06-26] MEDS: Multivitamin With Minerals Tab PO SCH (09:09)
[2018-06-26] MEDS: Pantoprazole 40 mg EC Tab PO SCH (09:10)
[2018-06-26] MEDS: Ergocalciferol 50,000 Intl Units Cap PO SCH (09:11)
[2018-06-26] MEDS: Lidocaine 5% Patch TD SCH (09:12)
--- NOTE | 2018-06-26 10:56 | CP.PCM.PN ---
Objective - Vital Signs/Intake and Output Vital Signs (last 24 hours): Temp Pulse Resp BP Pulse Ox 97.5 F L 92 H 18 99/65 L 100 06/26/18 08:15 06/26/18 08:15 06/26/18 08:15 06/26/18 09:11 06/26/18 08:15 - Medications Medications: Current Medications Acetaminophen (Tylenol 325mg Tab) 650 mg PO Q6 PRN PRN Reason: Pain, Mild (1-3) Last Admin: 06/22/18 16:53 Dose: 650 mg Al Hydrox/Mg Hydrox/Simethicone (Maalox Plus 30 Ml) 30 ml PO Q4 PRN PRN Reason: Indigestion / Heartburn Last Admin: 06/07/18 15:02 Dose: 30 ml Dextrose (Dextrose 50% Inj) 50 ml IVP Q2H PRN PRN Reason: Other if Blood glucose <70 Last Admin: 06/22/18 06:57 Dose: 50 ml Docusate Sodium (Colace) 100 mg PO BID [facility] Last Admin: 06/26/18 09:11 Dose: 100 mg Ergocalciferol (Drisdol 50,000 Intl Units Cap) 1 cap PO FR [facility] Last Admin: 06/26/18 09:11 Dose: 1 cap Finasteride (Proscar) 5 mg PO DAILY [facility] Last Admin: 06/26/18 09:10 Dose: 5 mg Furosemide (Lasix) 40 mg PO Q12 [facility] Last Admin: 06/26/18 09:11 Dose: Not Given Lidocaine (Lidoderm) 1 ea TD DAILY [facility] Last Admin: 06/26/18 09:12 Dose: 1 ea Multivitamins/Minerals (Therapeutic-M Tab) 1 tab PO DAILY [facility] Last Admin: 06/26/18 09:09 Dose: 1 tab Pantoprazole Sodium (Protonix Ec Tab) 40 mg PO DAILY [facility] Last Admin: 06/26/18 09:10 Dose: 40 mg Spironolactone (Aldactone) 25 mg PO BID [facility] Last Admin: 06/26/18 09:10 Dose: 25 mg Tamsulosin HCl (Flomax) 0.4 mg PO DAILY [facility] Last Admin: 06/26/18 09:10 Dose: 0.4 mg - Labs Labs: 06/25/18 05:45 06/23/18 08:53 PT 18.3 Seconds (9.8-13.1) H 06/18/18 12:44 INR 1.6 06/18/18 12:44 APTT 37.0 Seconds (25.6-37.1) 06/05/18 06:00 Assessment and Plan (1) Generalized weakness Status: Acute (2) E. coli UTI Status: Acute (3) Liver cirrhosis, alcoholic Status: Chronic (4) Lack of appetite Status: Acute (5) Weight loss Status: Acute (6) Ascites Status: Acute (7) Diarrhea Status: Acute (8) Pleural effusion, bilateral Status: Acute (9) CAD (coronary artery disease) Status: Chronic (10) Hx of deep venous thrombosis Status: Chronic (11) Hx pulmonary embolism Status: Chronic (12) HLD (hyperlipidemia) Status: Chronic (13) HTN (hypertension) Status: Chronic (14) Hx of CABG Status: Chronic
--- NOTE | 2018-06-26 15:50 | CP.PCM.DIS ---
Provider - Provider Date of Admission: 06/04/18 23:40 Attending physician: Jesus Manuel Noel MD Consults: 06/05/18 03:28 Nursing Referral for Wound Care Routine Comment: Physician Instructions: Reason For Exam: Sacral redness 06/05/18 12:21 Gastroenterology Consult Routine Comment: q Consulting Provider: Patel Soto Consulting Physician: Patel Soto Reason for Consult: weight loss, liver cirrhosis 06/06/18 00:44 Cardiology Consult Routine Comment: Consulting Provider: Lexii Payne Consulting Physician: Lexii Payne Reason for Consult: BNP Diagnosis - Discharge Diagnosis (1) Generalized weakness Status: Acute Priority: High (2) E. coli UTI Status: Acute (3) Liver cirrhosis, alcoholic Status: Chronic Priority: High (4) Lack of appetite Status: Acute Priority: High (5) Weight loss Status: Acute Priority: High (6) Ascites Status: Acute Priority: High (7) Diarrhea Status: Acute Priority: High (8) Pleural effusion, bilateral Status: Acute Priority: High (9) CAD (coronary artery disease) Status: Chronic Priority: Medium (10) Hx of deep venous thrombosis Status: Chronic Priority: High (11) Hx pulmonary embolism Status: Chronic Priority: High (12) HLD (hyperlipidemia) Status: Chronic Priority: Low (13) HTN (hypertension) Status: Chronic Priority: Low (14) Hx of CABG Status: Chronic Priority: High Hospital Course - Lab Results Lab Results: Micro Results 06/11/18 14:51 Ascitic Fluid Gram Stain - Final 06/11/18 14:51 Ascitic Fluid Body Fluid Culture - Final NO GROWTH AFTER 4 DAYS 06/04/18 20:00 Blood-Venous Blood Culture - Final NO GROWTH AFTER 5 DAYS 06/05/18 02:15 Urine,Catheterized Urine Culture - Final Escherichia Coli Most Recent Lab Values WBC 4.7 K/uL (4.8-10.8) L 06/25/18 05:45 RBC 4.07 Mil/uL (4.40-5.90) L 06/25/18 05:45 Hgb 11.8 g/dL (12.0-18.0) L 06/25/18 05:45 Hct 36.6 % (35.0-51.0) 06/25/18 05:45 MCV 89.8 fl (80.0-94.0) D 06/25/18 05:45 MCH 29.1 pg (27.0-31.0) 06/25/18 05:45 MCHC 32.4 g/dL (33.0-37.0) L 06/25/18 05:45 RDW 17.4 % (11.5-14.5) H 06/25/18 05:45 Plt Count 168 K/uL (130-400) 06/25/18 05:45 MPV 9.3 fl (7.2-11.7) 06/25/18 05:45 Neut % (Auto) 63.8 % (50.0-75.0) 06/25/18 05:45 Lymph % (Auto) 26.9 % (20.0-40.0) 06/25/18 05:45 [place] % (Auto) 9.0 % (0.0-10.0) 06/25/18 05:45 Eos % (Auto) 0.1 % (0.0-4.0) 06/25/18 05:45 Baso % (Auto) 0.2 % (0.0-2.0) 06/25/18 05:45 Neut # (Auto) 3.0 K/uL (1.8-7.0) 06/25/18 05:45 Lymph # (Auto) 1.3 K/uL (1.0-4.3) 06/25/18 05:45 [place] # (Auto) 0.4 K/uL (0.0-0.8) 06/25/18 05:45 Eos # (Auto) 0.0 K/uL (0.0-0.7) 06/25/18 05:45 Baso # (Auto) 0.0 K/uL (0.0-0.2) 06/25/18 05:45 PT 18.3 Seconds (9.8-13.1) H 06/18/18 12:44 INR 1.6 06/18/18 12:44 APTT 37.0 Seconds (25.6-37.1) 06/05/18 06:00 pCO2 32 mm/Hg (35-45) L 06/04/18 19:58 pO2 100 mm/Hg (80-100) 06/04/18 19:58 HCO3 29.0 mmol/L (21-28) H 06/04/18 19:58 ABG pH 7.54 (7.35-7.45) H 06/04/18 19:58 ABG Total CO2 28.4 mmol/L (22-28) H 06/04/18 19:58 ABG O2 Saturation 96.7 % (95-98) 06/04/18 19:58 ABG Base Excess 5.2 mmol/L (-2.0-3.0) H 06/04/18 19:58 [place] Test Yes 06/04/18 19:58 ABG Potassium 3.6 mmol/L (3.6-5.2) 06/04/18 19:58 VBG O2 Sat (Calc) 93.4 % (40-65) H 06/04/18 19:30 A-a O2 Difference 10.0 mm/Hg 06/04/18 19:58 Sodium 129.0 mmol/L (132-148) L 06/04/18 19:58 Chloride 102.0 mmol/L (98-107) 06/04/18 19:58 Glucose 90 mg/dL (75-110) 06/04/18 19:58 Lactate 1.0 mmol/L (0.7-2.1) 06/04/18 19:58 FiO2 21.0 % 06/04/18 19:58 Sodium 135 mmol/l (132-148) 06/23/18 08:53 Potassium 4.4 MMOL/L (3.6-5.0) 06/23/18 08:53 Chloride 104 mmol/L (98-107) 06/23/18 08:53 Carbon Dioxide 27 mmol/L (22-30) 06/23/18 08:53 Anion Gap 8 (10-20) L 06/23/18 08:53 BUN 20 mg/dl (9-20) 06/23/18 08:53 Creatinine 0.3 mg/dl (0.8-1.5) L 06/23/18 08:53 Est GFR ( Amer) > 60 06/23/18 08:53 Est GFR (Non-Af Amer) > 60 06/23/18 08:53 POC Glucose (mg/dL) 122 mg/dL (65-110) H 06/26/18 10:53 Random Glucose 72 mg/dL (75-110) L 06/23/18 08:53 Calcium 7.5 mg/dL (8.4-10.2) L 06/23/18 08:53 Phosphorus 1.7 mg/dl (2.5-4.5) L 06/12/18 16:51 Magnesium 2.0 MG/DL (1.6-2.3) 06/12/18 16:51 Total Bilirubin 0.5 mg/dl (0.2-1.3) 06/23/18 08:53 AST 71 U/L (17-59) H D 06/23/18 08:53 ALT 133 U/L (21-72) H D 06/23/18 08:53 Alkaline Phosphatase 225 U/L (38-126) H D 06/23/18 08:53 Ammonia 29 umo/L (16-60) 06/07/18 06:00 NT-Pro-B Natriuret Pep 801 pg/ml (0-900) 06/06/18 07:20 Total Protein 5.0 G/DL (6.3-8.2) L 06/23/18 08:53 Albumin 2.0 g/dL (3.5-5.0) L 06/23/18 08:53 Globulin 3.0 gm/dL (2.2-3.9) 06/23/18 08:53 Albumin/Globulin Ratio 0.7 (1.0-2.1) L 06/23/18 08:53 Ceruloplasmin 28 mg/dL (18-36) 06/06/18 07:20 Triglycerides 41 mg/DL (0-149) 06/05/18 06:00 Cholesterol 63 mg/dL (0-199) 06/05/18 06:00 LDL Cholesterol Direct < 30 mg/dL (0-129) 06/05/18 06:00 HDL Cholesterol 34 MG/DL (30-70) 06/05/18 06:00 Alpha Fetoprotein 3.2 ng/mL (1.6-4.5) 06/06/18 07:20 Carcinoembryonic Ag 2.3 ng/mL (0-3.0) 06/05/18 06:00 25-OH Vitamin D Total 27.5 NG/ML (30.0-100.0) L 06/05/18 06:00 Thyroxine (T4) 5.01 ug/dl (5.5-11.0) L 06/05/18 06:00 TSH 3rd Generation 2.04 mIU/ML (0.46-4.68) 06/05/18 06:00 Arterial Blood Potassium 3.6 mmol/L (3.6-5.2) 06/04/18 19:58 Urine Color Yellow (YELLOW) 06/15/18 12:25 Urine Clarity Slighty-cloudy (Clear) 06/15/18 12:25 Urine pH 7.0 (5.0-8.0) 06/15/18 12:25 Ur Specific [place] 1.015 (1.003-1.030) 06/15/18 12:25 Urine Protein Negative mg/dL (NEGATIVE) 06/15/18 12:25 Urine Glucose (UA) Neg mg/dL (NEGATIVE) 06/15/18 12:25 Urine Ketones Negative mg/dL (NEGATIVE) 06/15/18 12:25 Urine Blood Negative (NEGATIVE) 06/15/18 12:25 Urine Nitrate Negative (NEGATIVE) 06/15/18 12:25 Urine Bilirubin Negative (NEGATIVE) 06/15/18 12:25 Urine Urobilinogen 2.0 mg/dL (0.2-1.0) 06/15/18 12:25 Ur Leukocyte Esterase Neg Ld/uL (Negative) 06/15/18 12:25 Urine RBC (Auto) 1 /hpf (0-3) 06/15/18 12:25 Urine Microscopic WBC 3 /hpf (0-5) 06/15/18 12:25 Ur Squamous Epith Cells 1 /hpf (0-5) 06/15/18 12:25 Urine Bacteria Rare (<OCC) 06/15/18 12:25 Hyaline Casts 11-20 /hpf (0-2) H 06/15/18 12:25 Fluid Source Peritoneal/ascites 06/11/18 14:51 Fluid Appearance Clear (CLEAR) 06/11/18 14:51 Fluid WBC 86.0 /mm3 (0.0-300.0) 06/11/18 14:51 Fluid RBC 99.0 /mm3 (0.0-0.0) H 06/11/18 14:51 Fluid Tot Cell Count 100 (0-0) H 06/11/18 14:51 Fluid Neutrophils 19.0 % (0-0) H 06/11/18 14:51 Fluid Lymphocytes 56.0 % (0-0) H 06/11/18 14:51 Fld Monocyte/Macrophag 25 % (0-0) H 06/11/18 14:51 Fluid Total Protein < 2.0 g/dL (NONE ESTABLISHED) 06/11/18 14:51 Fluid LDH 159 IU (NONE ESTABLISHED) 06/11/18 14:51 Fluid Comment Straw 06/11/18 14:51 Stool Occult Blood Negative (NEGATIVE) 06/23/18 23:04 Anti-Mitochondrial Ab Negative (Negative) 06/06/18 07:20 Smooth Muscle Ab Titer TEST NOT PERFORMED 06/06/18 07:20 Anti-Smooth Muscle Ab Negative (Negative) 06/06/18 07:20 C. difficile Ag & Toxin Positive antigen (NEGATIVE) 06/23/18 09:00 Hepatitis A IgM Ab Negative (NEGATIVE) 06/05/18 13:40 Hep Bs Antigen Negative (NEGATIVE) 06/05/18 13:40 Hep B Core IgM Ab Negative (NEGATIVE) 06/05/18 13:40 Hepatitis C Antibody Negative (NEGATIVE) 06/05/18 13:40 AFP L3 Percent See note % (0.5-9.9) 06/06/18 07:20 Blood Type B POSITIVE 06/23/18 12:10 Antibody Screen Negative 06/23/18 12:10 Crossmatch See Detail 06/23/18 12:10 BBK History Checked Patient has bt 06/23/18 12:10 Discharge Exam - Head Exam Head Exam: NORMAL INSPECTION Discharge Plan - Discharge Medications Prescriptions: Metoprolol Succinate XL [Toprol XL] 12.5 mg PO DAILY #30 tab - Follow Up Plan Condition: FAIR Disposition: HOME/ ROUTINE Instructions: Pleural Effusion (DC), Generalized Weakness (DC) Referrals: Ayse Valdivia MD [Medical Doctor] - Lexii Payne MD [Staff Provider] - Patel Soto MD [Staff Provider] -
== END 2018-06-26 15:40 | DRG 433 ==
LOC: H.ER 18:01 → H.ERHOLD 23:40 → H.TEL 06-05 02:43 → H.MEDSURG1 06-08 12:04
PROVIDERS: ADMIT Internal Medicine Pulmonary Disease; ATTEND Internal Medicine Pulmonary Disease
PROC: 3E0234Z Introduction of Serum, Toxoid and Vaccine into Muscle, Percutaneous Approach (ICD-10-PCS; 2018-06-05)
PROC: 0W9G3ZX Drainage of Peritoneal Cavity, Percutaneous Approach, Diagnostic (ICD-10-PCS; principal; 2018-06-11)
PROC: 30233N1 Transfusion of Nonautologous Red Blood Cells into Peripheral Vein, Percutaneous Approach (ICD-10-PCS; 2018-06-24)
DX: K74.69 Other cirrhosis of liver (principal); R18.8 Other ascites; N39.0 Urinary tract infection, site not specified; J90 Pleural effusion, not elsewhere classified; J98.11 Atelectasis; R64 Cachexia; Z68.1 Body mass index [BMI] 19.9 or less, adult; B96.20 Unspecified Escherichia coli [E. coli] as the cause of diseases classified elsewhere; Z53.8 Procedure and treatment not carried out for other reasons; E16.1 Other hypoglycemia; K52.9 Noninfective gastroenteritis and colitis, unspecified; R62.7 Adult failure to thrive; T73.0XXA Starvation, initial encounter; E87.6 Hypokalemia; I95.89 Other hypotension; L89.152 Pressure ulcer of sacral region, stage 2; G89.29 Other chronic pain; I25.10 Atherosclerotic heart disease of native coronary artery without angina pectoris; E78.5 Hyperlipidemia, unspecified; E78.00 Pure hypercholesterolemia, unspecified; D64.9 Anemia, unspecified; I10 Essential (primary) hypertension; K59.00 Constipation, unspecified; Z66 Do not resuscitate; Z23 Encounter for immunization; Z86.711 Personal history of pulmonary embolism; Z86.718 Personal history of other venous thrombosis and embolism; Z95.1 Presence of aortocoronary bypass graft; Z95.5 Presence of coronary angioplasty implant and graft

== ENCOUNTER 2018-06-29 04:55 | Inpatient (IN) | payer MEDICARE, OTHER ==
[2018-06-29 04:56] VITALS: BMI 15.7
[2018-06-29] MEDS ORDERED: Sodium Chloride 0.9% 1,000 ML IV STA (05:26)
--- NOTE | 2018-06-29 05:33 | ED PDOC ---
HPI: Altered Mental Status Time Seen by Provider: 06/29/18 05:09 Chief Complaint (Nursing): Altered Mental Status Chief Complaint (Provider): Altered Mental Status History Per: Patient History/Exam Limitations: None Onset Of Symptoms: <3 Hours Additional Complaint(s): 87 y/o male was sent to the ED from half-way for AMS. Around 04:00 patient was found to have a blood sugar of 27. Patient was given 1mg IM glucagon with no improvement. Patient was then given an amp of D50 and his blood sugar increased precipitously to 300 and was sent here. Patient is awake but not conversing. His history is limited due to acuity of condition. Past Medical History Reviewed: Historical Data (obtained from records), Nursing Documentation, Vital Signs Vital Signs: Last Vital Signs Temp Pulse 92 H 06/29/18 05:06 Resp 18 06/29/18 05:06 BP 96/67 L 06/29/18 05:06 Pulse Ox 100 06/29/18 05:06 - Medical History PMH: CAD, Cardia Arrhythmia, HTN, Hypercholesterolemia, Hyperlipidemia Denies: Deep Vein Thrombosis, HIV, Chronic Kidney Disease Other PMH: Liver cirrhosis - Surgical History Surgical History: CABG, Coronary Stent, Hernia Repair Denies: Pacemaker - Family History Family History: States: Unknown Family Hx - Immunization History Hx Tetanus Toxoid Vaccination: No Hx Influenza Vaccination: Yes Hx Pneumococcal Vaccination: No - Home Medications Home Medications: Ambulatory Orders Medication Instructions Recorded Simvastatin 20 mg PO HS 09/09/16 Ergocalciferol (Vitamin D2) 50,000 unit PO FR 06/04/18 [Vitamin D2] Finasteride [Proscar] 5 mg PO DAILY 06/04/18 Lubiprostone [Amitiza] 24 mcg PO BID 06/04/18 Mv,Min10/Folic Acid/D3/Ala/Lut 1 tab PO DAILY 06/04/18 [Strovite One Caplet] Tamsulosin [Flomax] 0.4 mg PO DAILY 06/04/18 Docusate [Colace] 100 mg PO BID cap 06/26/18 Furosemide [Lasix] 40 mg PO Q12 tab 06/26/18 Lidocaine 5% [Lidoderm] 1 ea TD DAILY patch 06/26/18 Metoprolol Succinate XL [Toprol XL] 12.5 mg PO DAILY #30 tab 06/26/18 Pantoprazole [Protonix EC Tab] 40 mg PO DAILY ect 06/26/18 Spironolactone [Aldactone] 25 mg PO BID tab 06/26/18 Albuterol/Ipratropium [Duoneb 3 3 ml IH Q8 7 Days neb 06/29/18 mg/0.5 mg (3 ml) UD] - Allergies Allergies/Adverse Reactions: Allergies Allergy/AdvReac Type Severity Reaction Status Date / Time No Known Allergies Allergy Verified 06/29/18 05:09 Review of Systems Review Of Systems: ROS cannot be obtained secondary to pt's inabilty to answer questions. Physical Exam - Reviewed Nursing Documentation Reviewed: Yes Vital Signs Reviewed: Yes - Physical Exam Appears: Positive for: No Acute Distress (chronically ill appearing with cacechia and temporal wasting) Head Exam: Positive for: ATRAUMATIC Skin: Positive for: Normal Color Eye Exam: Positive for: Normal appearance ENT: Positive for: Normal ENT Inspection (grossly normal) Neck: Positive for: Normal Cardiovascular/Chest: Positive for: Regular Rate, Rhythm Respiratory: Positive for: Decreased Breath Sounds Gastrointestinal/Abdominal: Positive for: Soft (distended consistent with liver cirrhosis/ascites (consistent with history)), Distended Back: Positive for: Other (stage 2 sacral ulcers) Neurologic/Psych: Positive for: Other (lethargic and weak). Negative for: Alert, Oriented - Laboratory Results Result Diagrams: 06/29/18 06:07 06/29/18 06:07 - ECG O2 Sat by Pulse Oximetry: 100 (RA) Pulse Ox Interpretation: Normal Medical Decision Making Medical Decision Making: Time: 05:26 Initial Impression: AMS, rule out electrolyte abnormality, infection, intracranial bleeding Initial Plan: * VBG * EKG * CMP * Magnesium * Phosphorous * CBC w/ diff * PTT * Prothrombin time * CXR * IV Fluids * Blood Culture * Urine Culture * Patient is hypothermic will give Jennifer Hugger * UA 06:54 Patient's labs are back. Accucheck is 106. Blood pressure is 100's/53 and is improving with fluids. 06:58 Patient is still hypothermic so will be keeping Jennifer Huggers. Paging Dr. Noel pts pcp. 07:02 Spoke to Sadie told to admit after pending results are back. 07:00 Patient care endorsed to Dr. Cha pending urine, head CT, and CXR r/o sepsis and admission/remainder of workup and treatment. Scribe Attestation: Documented by Monster Damon, acting as a scribe for Adán Cummins MD. Provider Scribe Attestation: All medical record entries made by the Scribe were at my direction and personally dictated by me. I have reviewed the chart and agree that the record accurately reflects my personal performance of the history, physical exam, medical decision making, and the department course for this patient. I have also personally directed, reviewed, and agree with the discharge instructions and disposition. Disposition - Clinical Impression Clinical Impression: Pneumonia, Respiratory failure, Hypoglycemia, Sepsis - Patient ED Disposition Is Patient to be Admitted: Transfer of Care - Disposition Disposition: Transfer of Care Disposition Time: 07:00 Condition: SERIOUS Patient Signed Over To: Cyndi Cha
[2018-06-29 06:18] LABS: VENOUS BLOOD GAS BASE EXCESS 6.1 mmol/L (0.0-2.0); VENOUS BLOOD GAS PCO2 49 mmHg (40-60); VENOUS BLOOD GAS PO2 24 mm/Hg (30-55); VENOUS BLOOD PH 7.42 (7.32-7.43)
[2018-06-29 06:21] LABS: BASO % 0.1 % (0.0-2.0); HEMOGLOBIN 13.3 g/dL (12.0-18.0); LYMPH # 0.5 K/uL (1.0-4.3); LYMPH % 9.5 % (20.0-40.0); MEAN CELL VOLUME 88.4 fl (80.0-94.0); MEAN CORPUSCULAR HEMOGLOBIN 29.3 pg (27.0-31.0); MEAN CORPUSCULAR HGB CONC 33.2 g/dL (33.0-37.0); MEAN PLATELET VOLUME 8.9 fl (7.2-11.7); MONO # 0.1 K/uL (0.0-0.8); MONO % 2.2 % (0.0-10.0); NEUT # 4.6 K/uL (1.8-7.0); NEUT % 88.2 % (50.0-75.0); NRBC % 0.1 % (0.0-0.0); PLATELET COUNT 279 K/uL (130-400); RBC 4.54 Mil/uL (4.40-5.90); RED CELL DISTRIBUTION WIDTH 18.9 % (11.5-14.5); WHITE BLOOD COUNT 5.3 K/uL (4.8-10.8)
[2018-06-29 06:44] LABS: ALB/GLOB RATIO 0.7 (1.0-2.1); ALBUMIN 2.6 g/dL (3.5-5.0); ALT/SGPT 61 U/L (21-72); AST/SGOT 67 U/L (17-59); BLOOD UREA NITROGEN 30 mg/dl (9-20); CALCIUM 7.5 mg/dL (8.4-10.2); GFR NON-AFRICAN AMERICAN > 60
[2018-06-29 06:46] LABS: INR 2.7
[2018-06-29 06:49] LABS: PARTIAL THROMBOPLASTIN TIME 37.4 Seconds (25.6-37.1)
[2018-06-29 07:14] LABS: ANISOCYTOSIS SLIGHT; BANDS 2 % (0-2); LYMPHOCYTE 10 % (20-50); MONOCYTE 1 % (0-10); NEUTROPHIL 87 % (42-75); PLATELET ESTIMATE NORMAL (NORMAL); TOTAL CELLS COUNTED 100
[2018-06-29 07:16] LABS: LARGE PLATELETS PRESENT
[2018-06-29] MEDS ORDERED: Dextrose 50% SYRINGE Inj (50 ml) IVP STA ×3 (08:19→10:09)
--- NOTE | 2018-06-29 08:31 | ED PDOC ---
- Laboratory Results Result Diagrams: 06/29/18 06:07 06/29/18 06:07 - ECG O2 Sat by Pulse Oximetry: 96 (RA) Pulse Ox Interpretation: Normal - Progress ED Course And Treament: --Central line placement: used Atropine. First attempt in right femoral was unsuccessful. Left femoral line placed without complication. Re-evaluation Time: 08:40 Condition: Worse - Critical Care Total Time (In Min): 75 Documented Critical Care: Time excludes all time spent performint seperately billable procedures Medical Decision Making Medical Decision Makin:00 --Patient transferred to this provider by Dr. Cummins pending CT, CXR, UA and reevaluation. 08:[address] scan. Accucheck was 20. Given 2 amps of Dextrose 50%. Patient with agonal respirations. Requiring intubation. 09:[address] FINDINGS: HEMORRHAGE: No intracranial hemorrhage. BRAIN: There are mild chronic microangiopathic changes. There is no mass, mass effect or abnormal extra-axial fluid collection. There is no territorial infarction. The midline sagittal structures are normal.There are coarse atherosclerotic calcifications in the cavernous carotid arteries. VENTRICLES: There is mild age-related global parenchymal volume loss and proportionate enlargement of the ventricles and cortical sulci. CALVARIUM: There is no calvarial fracture or extracranial soft tissue swelling. PARANASAL SINUSES: Predominantly clear. MASTOID AIR CELLS: Predominantly clear. OTHER FINDINGS: None. IMPRESSION: No acute intracranial abnormality. Mild chronic microangiopathic changes and mild age-related global parenchymal volume loss. Scribe Attestation: Documented by Ángela Bolivar acting as a scribe for Cyndi Cha MD Provider Scribe Attestation: All medical record entries made by the Scribe were at my direction and personally dictated by me. I have reviewed the chart and agree that the record accurately reflects my personal performance of the history, physical exam, medical decision making, and the department course for this patient. I have also personally directed, reviewed, and agree with the discharge instructions and disposition. Disposition - Clinical Impression Clinical Impression: Pneumonia, Respiratory failure, Hypoglycemia, Sepsis - POA Present On Arrival: Poor Glycemic Control - Disposition Disposition: Admitted as In-Patient Disposition Time: 12:06 Condition: CRITICAL Forms: [facility] ([place]) Procedures - Intubation Intubation Required: Yes Time Out Performed: Yes Sedative: None (not needed) Paralytic: Other (none needed) Laryngoscope: Fiber Optic Video Scope (glidescope) ET Tube Size: 7.0 ET Tube Placement Confirmation: Visualized Passing Through Cords Patient Tolorated Procedure: No Complications Procedure Complications: None Additional comments: No sedation or paralytic needed due to patient's condition and unresponsiveness
[2018-06-29] MEDS ORDERED: Dextrose 50% SYRINGE Inj (50 ml) ONE (08:39)
[2018-06-29] MEDS ORDERED: Albuterol-Ipratrop 3 mg / 0.5 (3 ml) UD ONE (08:59)
[2018-06-29 09:10] LABS: URINE BILIRUBIN NEGATIVE (NEGATIVE); URINE BLOOD SMALL (NEGATIVE); URINE CLARITY SLIGHTY-CLOUDY (Clear); URINE COLOR YELLOW (YELLOW); URINE GLUCOSE (UA) NEG (NEGATIVE); URINE HYALINE CAST >20 /hpf (0-2); URINE LEUKOCYTE ESTERASE NEG Leu/uL (Negative); URINE PROTEIN NEGATIVE (NEGATIVE); URINE UROBILINOGEN 0.2-1.0 mg/dL (0.2-1.0)
[2018-06-29 09:14] LABS: VENOUS BLOOD GAS BASE EXCESS -1.7 mmol/L (0.0-2.0); VENOUS BLOOD GAS PCO2 57 mmHg (40-60); VENOUS BLOOD GAS PO2 26 mm/Hg (30-55); VENOUS BLOOD PH 7.27 (7.32-7.43)
--- NOTE | 2018-06-29 09:29 | CT ---
Date of service: 06/29/2018 PROCEDURE: CT HEAD WITHOUT CONTRAST. HISTORY: Altered mental status COMPARISON: None available. TECHNIQUE: Axial computed tomography images were obtained through the head/brain without intravenous contrast. Radiation dose: Total exam DLP = 792.52 mGy-cm. This CT exam was performed using one or more of the following dose reduction techniques: Automated exposure control, adjustment of the mA and/or kV according to patient size, and/or use of iterative reconstruction technique. FINDINGS: HEMORRHAGE: No intracranial hemorrhage. BRAIN: There are mild chronic microangiopathic changes. There is no mass, mass effect or abnormal extra-axial fluid collection. There is no territorial infarction. The midline sagittal structures are normal.There are coarse atherosclerotic calcifications in the cavernous carotid arteries. VENTRICLES: There is mild age-related global parenchymal volume loss and proportionate enlargement of the ventricles and cortical sulci. CALVARIUM: There is no calvarial fracture or extracranial soft tissue swelling. PARANASAL SINUSES: Predominantly clear. MASTOID AIR CELLS: Predominantly clear. OTHER FINDINGS: None. IMPRESSION: No acute intracranial abnormality. Mild chronic microangiopathic changes and mild age-related global parenchymal volume loss.
[2018-06-29] MEDS ORDERED: Dextrose 5%/0.9% NS 1,000 ML IV SCH (10:15)
--- NOTE | 2018-06-29 10:55 | RAD ---
Date of service: 06/29/2018 HISTORY: Sepsis Patient COMPARISON: 06/15/2018 FINDINGS: The endotracheal tube terminates 2 cm proximal to the kristin. LUNGS: There is pulmonary hyperinflation. There is patchy airspace disease in both upper lobes. PLEURA: Small effusions. No pneumothorax. CARDIOVASCULAR: The heart is normal in size. No aortic atherosclerotic calcification present. Status post CABG. OSSEOUS STRUCTURES: Within normal limits for the patient's age. VISUALIZED UPPER ABDOMEN: There is gaseous distension of the visualized small bowel loops and stomach. OTHER FINDINGS: None. IMPRESSION: Endotracheal tube terminates 2 cm proximal to the kristin. Airspace disease in the upper lobes may represent multifocal pneumonia, pulmonary edema cannot be excluded. Small effusions. Follow-up after medical management is recommended to ensure complete resolution.
[2018-06-29] MEDS ORDERED: Piperacillin/Tazobact 4.5 GM in Sodium Chloride 0.9% 100 ML IVPB STA (11:58)
[2018-06-29] MEDS ORDERED: Vancomycin 1 g Inj ONE (12:30)
[2018-06-29] MEDS ORDERED: Acetaminophen 650mg/20.3ml solution UD PO PRN (13:43)
[2018-06-29] MEDS ORDERED: Azithromycin 500 MG in Sodium Chloride 0.9% 250 ML IVPB SCH (13:45)
[2018-06-29] MEDS ORDERED: Enoxaparin 30 mg Syringe SC SCH (13:45)
[2018-06-29] MEDS: Sodium Chloride 0.9% 1,000 ML IV SCH ×2 (14:41→15:17)
[2018-06-29] MEDS ORDERED: Sodium Chloride 0.9% 1,000 ML IV SCH (15:30)
[2018-06-29 16:20] VITALS: O2SAT 100
--- NOTE | 2018-06-29 16:30 | CARD ---
APPROVED REPORT Date of service: 06/29/2018 EKG Measurement Heart [id number] <Conclusion> Normal sinus rhythm Low voltage QRS Nonspecific T wave abnormality Abnormal ECG
--- NOTE | 2018-06-29 16:44 | PCM.SEPTIC ---
Sepsis Progress Note - Non Invasive Reassessment Vital Sign (Latest): Temp Pulse Resp BP Pulse Ox 92.0 F L 86 15 82/49 L 100 06/29/18 16:00 06/29/18 16:00 06/29/18 16:00 06/29/18 16:00 06/29/18 16:00
[2018-06-29] MEDS ORDERED: Piperacillin/Tazobact 4.5 GM in Sodium Chloride 0.9% 100 ML IVPB SCH (17:00)
[2018-06-29] MEDS ORDERED: Saccharomyces Boulardi 250 mg Cap PO SCH (17:00)
[2018-06-29 17:50] VITALS: TEMP 93.4
--- NOTE | 2018-06-29 17:59 | CP.PCM.PN ---
Subjective - Date & Time of Evaluation Date of Evaluation: 06/29/18 Time of Evaluation: 18:00 - Subjective Subjective: I D NOTE EMR REVIEWED PNEUMONIA/SEPSIS HAVE ADJUSTED DOSE ZOSYN AWAIT CULTURES Objective - Vital Signs/Intake and Output Vital Signs (last 24 hours): Temp Pulse Resp BP Pulse Ox 93.4 F L 77 22 44/29 L 100 06/29/18 17:00 06/29/18 17:00 06/29/18 17:00 06/29/18 17:00 06/29/18 17:00 Intake and Output: 06/29/18 06/29/18 06:59 18:59 Intake Total 3449 Balance 3449 - Medications Medications: Current Medications Acetaminophen (Tylenol 650mg/20.3ml Solution Ud) 650 mg PO Q4 PRN PRN Reason: Temperature Dextrose/Sodium Chloride (Dextrose 5%/0.9% Ns 1000 Ml) 1,000 mls @ 1,000 mls/hr IV .Q1H FELIX Stop: 06/30/18 10:11 Last Admin: 06/29/18 09:00 Dose: 1,000 mls/hr Sodium Chloride (Sodium Chloride 0.9%) 1,000 mls @ 999 mls/hr IV .Q1H1M FELIX Stop: 06/30/18 13:28 Last Admin: 06/29/18 15:17 Dose: 999 mls/hr Vancomycin HCl 500 mg/ Sodium (Chloride) 100 mls @ 100 mls/hr IVPB Q12H FELIX; Protocol Azithromycin 500 mg/ Sodium (Chloride) 250 mls @ 250 mls/hr IVPB DAILY FELIX; Protocol Last Admin: 06/29/18 16:28 Dose: 250 mls/hr Sodium Chloride (Sodium Chloride 0.9%) 1,000 mls @ 999 mls/hr IV .Q1H1M FELIX Stop: 06/30/18 15:22 Norepinephrine Bitartrate 4 mg (/ Dextrose) 254 mls @ 9.53 mls/hr IV .Q24H FELIX; Protocol Last Admin: 06/29/18 16:54 Dose: 5 mcg/min, 19.05 mls/hr Piperacillin Sod/Tazobactam (Sod 3.375 gm/ Sodium Chloride) 100 mls @ 100 mls/hr IVPB Q8H FELIX; Protocol Pantoprazole Sodium (Protonix Inj) 40 mg IVP DAILY FELIX Last Admin: 06/29/18 15:16 Dose: 40 mg Saccharomyces Boulardii (Florastor) 250 mg PO BID FELIX Last Admin: 06/29/18 16:28 Dose: Not Given - Labs Labs: 06/29/18 06:07 06/29/18 06:07 PT 31.0 Seconds (9.8-13.1) H 06/29/18 06:07 INR 2.7 06/29/18 06:07 APTT 37.4 Seconds (25.6-37.1) H 06/29/18 06:07
[2018-06-29] MEDS ORDERED: Piperacillin/Tazobact 3.375 GM in Sodium Chloride 0.9% 100 ML IVPB SCH (18:00)
[2018-06-29 18:02] VITALS: BP 42/27; PULSE 72; RESP 18
--- NOTE | 2018-06-29 20:25 | PN ---
DATE: 06/29/2018 CRITICAL CARE PROGRESS NOTE LOCATION: The patient in ICU, bed 431. TIME SPENT: 50 minutes. SUBJECTIVE: The patient is seen and evaluated at the bedside. Past medical, surgical, family, social history reviewed as available and as noted in ER. The patient is currently intubated, on mechanical ventilation, not responsive. Unable to obtain detailed history. HISTORY OF PRESENT ILLNESS: Mr. Medina is an 87-year-old male care home resident who was sent to the ER after he was noted to become altered in his mental status compared to his baseline. The patient had blood sugar of 27 mg, given an ampule of D50 and glucagon 1 mg with improvement in his mental status and blood sugar. In the ER, the patient's vital signs showed temperature noted to be hypothermic. He was placed in a Jennifer Hugger blanket. Pulse 92, respiratory rate 18, blood pressure 96/67, pulse oximetry 100%. CT head obtained and ruled out acute intracranial abnormality. Chest x-ray showed upper lobe pneumonia, intubated and placed on mechanical ventilation, admitted to ICU. PAST MEDICAL HISTORY: Significant for hypertension, hyperlipidemia, coronary artery disease status post coronary artery bypass graft surgery. No history of deep venous thrombosis, HIV, or chronic kidney disease. PAST SURGICAL HISTORY: Includes CABG, coronary artery stent, and hernia repair. ALLERGIES: NONE DOCUMENTED. CURRENT MEDICATIONS: include simvastatin, vitamin B2, Proscar, Amitiza, ____, Flomax, Colace, Lasix, lidocaine 5% patch, metoprolol, Protonix, and spironolactone. EXAMINATION: GENERAL: On examination, elderly, thin, cachectic male orally intubated, placed on mechanical ventilation. AC/PRBC rate of 14, tidal volume 250, FIO2 100%, PEEP of 5, minute ventilation 10.4, peak airway pressure 10, mean airway pressure 5. End-tidal CO2 12. HEAD, EYES, EARS, NOSE, AND THROAT: Pupils are reactive. Conjunctivae pink. Sclerae white. NECK: Supple. Endotracheal tube in place. No secretion noted. CHEST: Bilateral breath sounds diminished in intensity. HEART: Rhythm regular. S1 and S2 normal. No audible murmur. ABDOMEN: Distended, nontender. EXTREMITIES: No edema. DP palpable, reduced in intensity. NEUROLOGICAL: No response to painful stimuli. Moving both upper and lower extremities. CURRENT MEDICATIONS: Include Tylenol 650 p.o. every 4 hours p.r.n., vancomycin 500 mg IV every 12 hours, Zosyn 4.5 g IV every 8 hours, Zithromax 500 mg IV daily, Lovenox 30 subcutaneous daily. LABORATORY DATA: WBC 5.3, hemoglobin 13.3, hematocrit 40.1, platelet count 279, neutrophils 88.2, lymphocytes 9.5, monocytes 2.2. PT 31, INR 2.7, PTT 37.4. ABG pending. Lactate level 3.7. SMA-7: Sodium 132, potassium 4.4, chloride 97, CO2 26, blood urea nitrogen 30, creatinine 0.4, random glucose 58, calcium 7.5, phosphorus 4.1, magnesium 2.2, total bilirubin 1.5, AST 67, ALT 61, alkaline phosphatase 145, total protein 6.3, albumin at 2.6. Urinalysis: Blood small, nitrites negative, microscopic WBC less than 1, hyaline casts more than 20. Blood culture: No growth reported. Urine culture report pending. Chest x-ray shows endotracheal tube in place. Small effusion. Pulmonary hyperinflation. Patchy airspace disease in both upper lobes. Head CT: No acute intracranial pathology. IMPRESSION: 1. Neurologic: Altered mental status, secondary to hypoglycemia, secondary to ongoing sepsis, source likely aspiration pneumonia, rule out gastrointestinal source. No previous history of cerebrovascular accident. 2. Pulmonary: Acute hypoxic respiratory failure secondary to aspiration pneumonia, possible chronic obstructive pulmonary disease with hyperinflation noted in the chest x-ray. Continue DuoNeb 3 mL via nebulizer every 6 hours. Continue antibiotics. 3. Cardiac: History of hypertension, status post coronary artery stent and coronary artery bypass graft, now with hypovolemic hypotension combined with septic hypertension. The patient has been on antihypertensive medications in the care home, we will hold it. Also on diuretics. Spironolactone and Lasix on hold. Continue intravenous fluid. Follow up lactate level. 4. Hematology: No leukocytosis noted. Platelet count normal. Coagulopathy with elevated INR related to vitamin K deficiency and/or due to coagulopathy from sepsis. 5. Gastrointestinal: Elevated liver enzymes, rule out hepatic disease. 6. Endocrine: No history of diabetes or hypothyroidism. Keep the head of bed 30 degrees up. NG tube for medications. DVT prophylaxis. Prognosis remains guarded. Steven Garzon MD [facility] # [id number]
--- NOTE | 2018-06-30 04:05 | PN ---
DATE: 06/29/2018 SEPSIS PROGRESS NOTE REASSESSMENT TYPE: Noninvasive. TIME OF EVALUATION: 4:45. PHYSICAL EXAMINATION: VITAL SIGNS: Recent vital signs reviewed. Blood pressure 82/49, mean arterial pressure 62, heart rate 86, SPO2 100%, on AC 14, 250, 100% with PEEP of 5. CARDIOVASCULAR: Rhythm regular, rate 86. No chest tenderness. No edema. No gallop. No jugular venous distention. No audible murmur. No bradycardia. No ectopy. No friction rub. RESPIRATORY: Breath sounds normal. Decreased in intensity. No use of accessory muscles on respiration. No fine crackles. No rhonchi. No stridor. No wheezing. The patient is intubated on mechanical ventilation. EXTREMITIES: Capillary refill less than 2 seconds. Pulses: Radial, decreased; dorsalis pedis, decreased; posterior tibialis, decreased. SKIN: Normal color, warm to touch. No rash. Not jaundiced or mottled. No ecchymosis. ASSESSMENT AND PLAN: SPO2 not obtainable. Passive leg raise performed, negative. Fluid challenge performed with 4 liters of IV fluid, no significant improvement in systolic blood pressure. The patient is started on Levophed. Lactate level pending. Continue IV hydration, ventilation support, broad-spectrum antibiotics. Follow blood cultures. Steven Garzon MD
--- NOTE | 2018-07-07 13:48 | PQF ---
PROVIDER RESPONSE TEXT: I did not see the patient so I am unable to determine. REVIEWER QUERY TEXT: Skin Ulcer Type and Severity Skin ulcer is documented in the Medical Record. Please specify the type and severity Such as: Type: -- Pressure ulcer -- Diabetic skin ulcer -- Venous stasis ulcer -- Other, please specify Severity: -- Limited to breakdown of skin -- With fat layer exposure -- With necrosis of muscle -- With necrosis of bone -- Other, please specify The patient's Clinical Indicators include: ER Physician Documentation Report "stage 2 sacral ulcer." Query created by: Paulette Spring on 06/30/2018 1:55 PM Electronically signed by: Jesus Manuel Noel MD 07/07/2018 1:46 PM
--- NOTE | 2018-07-14 15:24 | CP.PCM.PCO ---
Physician Communication Note - Physician Communication Note Physician Communication Note: Patient presented to the ER on 06/29 from the MD, Pt has stage 2 pressure u Assessment & Plan - Assessment and Plan (Free Text) Plan: Patient presented to the Emergency department on 06/29 from the MD, Pt has stage 2 pressure ulcer on the sacrum, present on admission, was receiving local wound care at the skilled nursing
== END 2018-06-29 23:20 | DRG 208 ==
LOC: H.ER 04:55 → H.ERHOLD 12:05 → H.ICU/CCU 13:54
PROVIDERS: ADMIT Internal Medicine Pulmonary Disease; ATTEND Internal Medicine Pulmonary Disease
PROC: 06HN33Z Insertion of Infusion Device into Left Femoral Vein, Percutaneous Approach (ICD-10-PCS; principal; 2018-06-29)
PROC: 5A1935Z Respiratory Ventilation, Less than 24 Consecutive Hours (ICD-10-PCS; 2018-06-29)
PROC: 0BH17EZ Insertion of Endotracheal Airway into Trachea, Via Natural or Artificial Opening (ICD-10-PCS; 2018-06-29)
DX: J69.0 Pneumonitis due to inhalation of food and vomit (principal); A41.9 Sepsis, unspecified organism; J96.01 Acute respiratory failure with hypoxia; E16.2 Hypoglycemia, unspecified; E78.00 Pure hypercholesterolemia, unspecified; E78.5 Hyperlipidemia, unspecified; I10 Essential (primary) hypertension; I25.10 Atherosclerotic heart disease of native coronary artery without angina pectoris; Z95.1 Presence of aortocoronary bypass graft; Z95.5 Presence of coronary angioplasty implant and graft; E86.1 Hypovolemia; R74.8 Abnormal levels of other serum enzymes; K74.60 Unspecified cirrhosis of liver; R79.1 Abnormal coagulation profile; L89.152 Pressure ulcer of sacral region, stage 2